=== PATIENT | female | born 1960 | race Caucasian/White ===

== ENCOUNTER 2016-12-02 17:49 | Emergency (ER) | payer OTHER ==
[~2016-12-02] VITALS: Ht 157.5 cm; Wt 86.2 kg
[~2016-12-02 17:49] MED LIST: /ONDA4TA PO; /PANT40TA OR; /PREG50CA PO; /WARF5TA PO; ACET65TA OR; AMIT10TA2 PO; AMOX250C3 PO; ASPI81CH PO; ASPIRIN PO; ATORVASTATIN PO; BACLOFEN PO; CLAR500T PO; COUMADIN PO; DICL0.1S7 TOP; DOCU100C PO; DUCOSATE SODIUM PO; EPIP0.3I IM; GABA300C2 PO; GABA600T PO; HYDR-3713 PO; LAMICTAL PO; LAMO150T PO; LEVA500T; LIPI10TA PO; LISI5TAB PO; LYRICA PO; METF500T PO; MORP15TA6 PO; NORCOBULK PO; No Historical Meds; OMEP40CA2 PO; OXYC-274 PO; PERC5TAB8 OR; PERCOCET PO; PRIL40CA PO; PROAAER IN; SERO50TA PO; SOMA350T PO; TRAM50TA2 PO; TRAMADOL PO; TRAZ50TA OR; TYLE325T5 PO; TYLENOL #3; VICO5TAB; VICO5TAB PO; WELLBUTRIN PO; [UNRECOGNIZED DRUG - OTHER] PO
[2016-12-02] MEDS ORDERED: SERO1TAB2 PO (18:00)
[2016-12-02] MEDS ORDERED: ZOFR20TA PO (18:00)
[2016-12-02] MEDS ORDERED: BENA25TA9 PO (18:00)
[2016-12-02] MEDS ORDERED: CLINDAMYCIN 150 MG CAP PO ONE (20:15)
[2016-12-02] MEDS ORDERED: ACETAMINOPH W/CODEINE #3 TAB UD PO ONE (20:15)
[2016-12-02] MEDS ORDERED: ADACEL/BOOSTRIX VACCINE (DIPHTH/PERTUSS/ACELL/TETANUS)0.5ML SYR (90715) IM ONE (20:15)
[2016-12-02] MEDS ORDERED: CLIN1CAP5 PO (21:36)
[2016-12-02] MEDS ORDERED: TYLETAB14 PO (21:36)
[2016-12-02 22:01] VITALS: BP 144/71
--- NOTE | 2016-12-03 07:46 | REP ---
Clinical: Trauma. Rule out fracture. Technique: AP, lateral, bilateral oblique views of the right foot. Findings: Scattered age-related degenerative changes are appreciated. No acute fracture or dislocation. No subcutaneous emphysema or radiodense foreign body. Impression: Age-related degenerative changes. No acute fracture or dislocation. Signed by Bismark Franklin MD 12/03/2016 07:38 A
== END 2016-12-02 22:09 | disposition home or self-care (01) ==
LOC: M ED 18:58
DX: S90.111A Contusion of right great toe without damage to nail, initial encounter (principal); W23.1XXA Caught, crushed, jammed, or pinched between stationary objects, initial encounter; Y92.099 Unspecified place in other non-institutional residence as the place of occurrence of the external cause; Y93.01 Activity, walking, marching and hiking; Y99.9 Unspecified external cause status

== ENCOUNTER → 2016-12-31 | Outpatient (CLI) | payer OTHER ==
[~2016-12-31] VITALS: Ht 158.8 cm; Wt 91.2 kg
[~2016-12-31] MED LIST changes: +AMIT10TA PO; +ASPI1TAB PO; +BENA25TA9 PO; +CARA1TAB2 PO; +CLIN1CAP5 PO; +CYCL5TA PO; +DULO30CA PO; +LIDOCAINE 2% INJ 100 MG/5 ML SDV (FOR ANES.) As Ordered ONE; +LISI-538 PO; +MIRT30TA2 PO; +NS 1,000 ML IV SCH; +PROPOFOL 200 MG/20 ML VIAL As Ordered ONE; +SERO1TAB2 PO; +SERO1TAB3 PO; +SING10TA32 PO; +TYLETAB14 PO; +ZOFR20TA PO
[2016-12-31 13:49] VITALS: BP 125/72
--- NOTE | 2016-12-31 13:53 | ROOR ---
Patient Name: Neyda Hernandez Procedure Date: 12/31/2016 1:27 PM Date of : 1960 Age: 56 Room: [facility] Gender: Female Note Status: Finalized Procedure: Upper GI endoscopy Indications: Heartburn, Hematemesis, Nausea with vomiting Providers: Oscar Hannon MD Referring MD: TIN ANTHONY NP Requesting Provider: Medicines: Monitored Anesthesia Care Complications: No immediate complications. Procedure: Pre-Anesthesia Assessment: - The heart rate, respiratory rate, oxygen saturations, blood pressure, adequacy of pulmonary ventilation, and response to care were monitored throughout the procedure. The Endoscope was introduced through the mouth, and advanced to the second part of duodenum. The upper GI endoscopy was accomplished without difficulty. The patient tolerated the procedure well. Findings: The Z-line was regular and was found 40 cm from the incisors. Mildly severe esophagitis with no bleeding was found 40 cm from the incisors. No other significant abnormalities were identified in a careful examination of the stomach. The exam of the duodenum was otherwise normal. Impression: - Z-line regular, 40 cm from the incisors. - Mildly severe reflux esophagitis. - No specimens collected. - The examination was otherwise normal. Recommendation: - Patient has a contact number available for emergencies. The signs and symptoms of potential delayed complications were discussed with the patient. Return to normal activities tomorrow. Written discharge instructions were provided to the patient. - High fiber diet. - Discharge patient to home. - Follow an antireflux regimen. - Continue present medications. - Use Prilosec (omeprazole) 40 mg PO daily. - The findings and recommendations were discussed with the patient's family. Oscar Hannon MD Oscar Hannon MD 12/31/2016 1:53:16 PM This report has been signed electronically. Number of Addenda: 0 Note Initiated On: 12/31/2016 1:27 PM Estimated Blood Loss: Estimated blood loss: none.
== END | disposition home or self-care (01) ==
LOC: M OPP 13:06
PROVIDERS: ATTEND Internal Medicine Gastroenterology
DX: R12 Heartburn (principal); K92.0 Hematemesis; R11.2 Nausea with vomiting, unspecified; K21.0 Gastro-esophageal reflux disease with esophagitis; I10 Essential (primary) hypertension; E11.9 Type 2 diabetes mellitus without complications; M19.90 Unspecified osteoarthritis, unspecified site; M79.7 Fibromyalgia; M54.2 Cervicalgia; M54.5 Low back pain; F41.9 Anxiety disorder, unspecified; F32.9 Major depressive disorder, single episode, unspecified; Z78.0 Asymptomatic menopausal state; G47.30 Sleep apnea, unspecified; R06.83 Snoring; F17.210 Nicotine dependence, cigarettes, uncomplicated; Z88.0 Allergy status to penicillin; Z88.8 Allergy status to other drugs, medicaments and biological substances; Z88.5 Allergy status to narcotic agent; Z79.82 Long term (current) use of aspirin; Z79.84 Long term (current) use of oral hypoglycemic drugs; Z79.899 Other long term (current) drug therapy; Z80.3 Family history of malignant neoplasm of breast

== ENCOUNTER 2017-02-27 13:58 | Emergency (ER) | payer OTHER ==
[~2017-02-27] VITALS: Ht 157.5 cm; Wt 93.0 kg
[~2017-02-27 13:58] MED LIST changes: -LIDOCAINE 2% INJ 100 MG/5 ML SDV (FOR ANES.) As Ordered ONE; -NS 1,000 ML IV SCH; -PROPOFOL 200 MG/20 ML VIAL As Ordered ONE
[2017-02-27] MEDS ORDERED: predniSONE 20 MG TAB PO ONE (15:45)
[2017-02-27] MEDS ORDERED: FAMOTIDINE 20 MG TAB PO ONE (15:45)
[2017-02-27] MEDS ORDERED: MEDR4PAK PO (15:50)
[2017-02-27] MEDS ORDERED: ALLE180T33 PO (15:50)
[2017-02-27] MEDS ORDERED: FAMO20TA PO (15:50)
[2017-02-27 16:01] VITALS: BP 161/94
== END 2017-02-27 16:02 | disposition home or self-care (01) ==
LOC: M ED 15:20
DX: L50.9 Urticaria, unspecified (principal); E11.9 Type 2 diabetes mellitus without complications; M79.7 Fibromyalgia; Z79.899 Other long term (current) drug therapy; Z88.0 Allergy status to penicillin; Z88.5 Allergy status to narcotic agent; Z88.1 Allergy status to other antibiotic agents; Z88.8 Allergy status to other drugs, medicaments and biological substances

== ENCOUNTER 2017-04-25 02:42 | Emergency (ER) | payer OTHER ==
[~2017-04-25] VITALS: Ht 157.5 cm; Wt 95.0 kg
[~2017-04-25 02:42] MED LIST changes: +ALLE180T33 PO; +BENA25TA10 PO; -BENA25TA9 PO; -CARA1TAB2 PO; +CARA1TAB6 PO; +CLIN150C14 PO; -CLIN1CAP5 PO; -CYCL5TA PO; +CYCL5TAB PO; +FAMO20TA PO; +MEDR4PAK PO; -METF500T PO; +METF500T13 PO
[2017-04-25 02:47] VITALS: BP 193/108
[2017-04-25] MEDS ORDERED: DOXYCYCLINE HYCLATE 100 MG TAB PO ONE (05:00)
[2017-04-25] MEDS ORDERED: NORCO, ANEXSIA 5/325MG TABLET (HYDROcodone/ACETAMINOPHEN) PO ONE (05:00)
[2017-04-25] MEDS ORDERED: DOXY100C37 PO (05:06)
[2017-07-22] MEDS ORDERED: MELO15TA4 (22:43)
== END 2017-04-25 05:25 | disposition home or self-care (01) ==
LOC: M ED 02:42
DX: S50.872A Other superficial bite of left forearm, initial encounter (principal); S80.812A Abrasion, left lower leg, initial encounter; W55.01XA Bitten by cat, initial encounter; W55.03XA Scratched by cat, initial encounter; Y92.89 Other specified places as the place of occurrence of the external cause; Y93.89 Activity, other specified; Y99.8 Other external cause status; I25.10 Atherosclerotic heart disease of native coronary artery without angina pectoris; E11.9 Type 2 diabetes mellitus without complications; I10 Essential (primary) hypertension; F33.9 Major depressive disorder, recurrent, unspecified; F17.210 Nicotine dependence, cigarettes, uncomplicated; Z79.84 Long term (current) use of oral hypoglycemic drugs; Z79.82 Long term (current) use of aspirin; Z79.899 Other long term (current) drug therapy

== ENCOUNTER → 2017-05-08 | Outpatient (CLI) | payer OTHER ==
[~2017-05-08] MED LIST changes: +DOXY100C37 PO; +MELO15TA4
[2017-05-08 14:48] LABS: ANION GAP 11 MEQ/L (8-16); BLOOD UREA NITROGEN 19 MG/DL (7-18); CALCIUM LEVEL 9.3 MG/DL (8.5-10.1); CARBON DIOXIDE LEVEL 26 MEQ/L (21-32); CHLORIDE LEVEL 106 MEQ/L (98-107); CREATININE FOR GFR 0.86 MG/DL (0.55-1.02); GLOMERULAR FILTRATION RATE > 60.0 (>51); GLUCOSE, FASTING 105 MG/DL (70-105); POTASSIUM SERUM 4.3 MEQ/L (3.5-5.1); SODIUM LEVEL 143 MEQ/L (136-145)
--- NOTE | 2017-05-08 14:54 | ECGEPIP ---
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
== END ==
LOC: M LAB 13:28
PROVIDERS: ATTEND Anesthesiology
DX: Z01.818 Encounter for other preprocedural examination (principal)

== ENCOUNTER 2017-05-09 07:25 | Day surgery (SDC) | payer OTHER ==
[~2017-05-09] VITALS: Ht 158.8 cm; Wt 93.4 kg
[~2017-05-09 07:25] MED LIST changes: -MELO15TA4
[2017-05-09] MEDS ORDERED: LR 1,000 ML IV ONE (07:45)
[2017-05-09] MEDS ORDERED: dexameTHASONE 4 MG/ML 1ML VIAL (J1100) IV ONE (07:45)
[2017-05-09] MEDS ORDERED: LIDOCAINE 1% MDV 20ML VIAL SC PRN (07:45)
[2017-05-09] MEDS ORDERED: LIDOCAINE 2% INJ 100 MG/5 ML SDV (FOR ANES.) As Ordered ONE (08:14)
[2017-05-09] MEDS ORDERED: PROPOFOL 200 MG/20 ML VIAL As Ordered ONE ×2 (08:14→09:57)
[2017-05-09] MEDS ORDERED: ONDANSETRON 4MG/2ML VIAL (J2405) As Ordered ONE (08:14)
[2017-05-09] MEDS ORDERED: ROCURONIUM BROMIDE 50 MG/5 ML VIAL/SYRINGE As Ordered ONE (08:14)
[2017-05-09] MEDS ORDERED: fentaNYL 100 MCG/2 ML INJECTION (J3010) As Ordered ONE (08:15)
[2017-05-09] MEDS ORDERED: MIDAZOLAM INJ 2 MG/2 ML VIAL (J2250) As Ordered ONE (08:15)
[2017-05-09] MEDS ORDERED: LIDOCAINE W/EPINEPHRINE 1% 20ML VIAL As Ordered ONE (08:32)
[2017-05-09] MEDS ORDERED: OXYMETAZOLINE NASAL SPRAY (AFRIN) As Ordered ONE (08:32)
[2017-05-09] MEDS ORDERED: PERCOCET 5MG/325MG TAB PO PRN (10:45)
[2017-05-09] MEDS ORDERED: LR 1,000 ML IV SCH ×2 (10:45)
[2017-05-09] MEDS ORDERED: ONDANSETRON 4MG/2ML VIAL (J2405) IV PRN (10:45)
[2017-05-09] MEDS ORDERED: fentaNYL 100 MCG/2 ML INJECTION (J3010) IV PRN (10:45)
[2017-05-09 12:25] VITALS: BP 162/93
--- NOTE | 2017-05-10 16:29 | RO ---
DATE OF PROCEDURE: 05/09/2017 PREPROCEDURE DIAGNOSIS: Left vocal cord polyp and dysphonia. POSTPROCEDURE DIAGNOSIS: Left vocal cord polyp and dysphonia. PROCEDURE: Direct suspension microlaryngoscopy with excision of the left vocal cord polyp. SURGEON: Dr. Chano Samaniego RADIOLOGIST CHIEF OF BREAST IMAGING: ANESTHESIA: General. CLINICAL PREAMBLE: This 56-year-old woman was found to have a left vocal polyp when she was undergoing upper gastrointestinal (GI) endoscopy procedure. She was also noted to have some voice disturbance. Flexible laryngoscopy revealed a polyp over the left anterior one-third of the vocal cord. Management options including surgery listed above have been discussed. The patient understood and consented to the procedure. DESCRIPTION OF PROCEDURE: The patient was identified in preop holding and brought to the operating room in stable condition. In supine position on the operating table, patient received general anesthesia followed by orotracheal intubation without incident. The patient was prepped and draped in the usual fashion for the procedure. Bimanual palpation of the oral cavity, oral tongue, base of tongue, lateral and posterior pharyngeal wall showed no evidence of discrete mass. The upper dentition was protected using a tooth guard and using the Dedo-Pilling laryngoscope, visual inspection of the mucosa of the oral cavity, oropharynx, supraglottis, piriform sinuses and posterior pharyngeal wall was carried out and found to be free of mass or ulceration lesions. The Dedo laryngoscope was then positioned to visualize the vocal cords. Large polypoid tissue was noted over the anterior one-third of the left vocal cord. The right vocal cord was unremarkable. Anterior commissure was clear. Subglottis was unremarkable. The mucosa overlying the left vocal cord polyp was then sharply incised using a sickle knife. The polyp was then successfully resected from the submucosal plane. Hemostasis was achieved using cottonoid pledgets soaked in Afrin solution. At the end of the procedure, sponge and instrument counts were correct. No complications noted. Estimated blood loss was less than 1 mL. General anesthesia was reversed, and the patient was extubated and brought to the recovery room in stable condition. SARIAH
[2017-07-22] MEDS ORDERED: MELO15TA4 (22:43)
== END 2017-05-09 12:35 | disposition home or self-care (01) ==
LOC: M SDC 07:25
PROVIDERS: ATTEND Otolaryngology
DX: J38.1 Polyp of vocal cord and larynx (principal); J38.3 Other diseases of vocal cords; K21.9 Gastro-esophageal reflux disease without esophagitis; I10 Essential (primary) hypertension; E11.9 Type 2 diabetes mellitus without complications; I25.10 Atherosclerotic heart disease of native coronary artery without angina pectoris; M79.7 Fibromyalgia; F41.9 Anxiety disorder, unspecified; F32.9 Major depressive disorder, single episode, unspecified; F17.210 Nicotine dependence, cigarettes, uncomplicated; Z79.82 Long term (current) use of aspirin; Z79.899 Other long term (current) drug therapy; Z88.0 Allergy status to penicillin

== ENCOUNTER 2018-05-16 08:12 | Emergency (ER) | payer OTHER ==
[2018-05-16] MEDS: METHOCARBAMOL 1,000 MG/10 ML VIAL (J2800) IV (08:58)
[2018-05-16] MEDS: KETOROLAC 30 MG/ML VIAL (J1885) IV (08:58)
== END 2018-05-16 10:22 | disposition home or self-care (01) ==
LOC: M ED 08:12
DX: M54.5 Low back pain (principal); G89.29 Other chronic pain; I10 Essential (primary) hypertension; K21.9 Gastro-esophageal reflux disease without esophagitis; M19.90 Unspecified osteoarthritis, unspecified site; F33.9 Major depressive disorder, recurrent, unspecified; E66.9 Obesity, unspecified; F17.200 Nicotine dependence, unspecified, uncomplicated; Z88.5 Allergy status to narcotic agent; Z88.0 Allergy status to penicillin; Z88.8 Allergy status to other drugs, medicaments and biological substances; Z79.84 Long term (current) use of oral hypoglycemic drugs; Z79.82 Long term (current) use of aspirin; Z79.899 Other long term (current) drug therapy
CPT/HCPCS: J1885

== ENCOUNTER → 2019-02-11 | Outpatient (CLI) | payer OTHER ==
[~2019-02-11] MED LIST changes: -/ONDA4TA PO; -/PANT40TA OR; -/PREG50CA PO; -/WARF5TA PO; -ASPI1TAB PO; +ASPI81TA26 PO; +COUM1TAB17 PO; -DULO30CA PO; +DULO30CA9 PO; -GABA600T PO; +GABA600T4 PO; +HYDR-3715 PO; +LYRI50CA PO; +MELO15TA28; +MIRT1TAB16 PO; -MIRT30TA2 PO; +ONDA-1 PO; +OXYC1TAB23 PO; -PERCOCET PO; +PROT1TAB2 OR; -ZOFR20TA PO; +ZOFR4TAB16 PO
[2019-02-11 11:22] LABS: BASO # 0.1 10^3/uL (0.0-0.2); BASO % 0.6 % (0.0-1.0); EOS # 0.1 10^3/uL (0.0-0.50); EOS % 0.9 % (0.0-3.0); HEMATOCRIT 47.6 % (36.0-47.0); HEMOGLOBIN 15.5 g/dl (12.0-15.5); LYMPH # 2.6 10^3/uL (1.5-4.5); LYMPH % 21.7 % (24.0-44.0); MEAN CORPUSCULAR HEMOGLOBIN 25.5 pg (27.0-33.0); MEAN CORPUSCULAR HGB CONC 32.6 g/dl (32.0-36.5); MEAN CORPUSCULAR VOLUME 78.3 fl (80.0-96.0); MONO # 0.9 10^3/uL (0.0-0.8); MONO % 7.5 % (0.0-5.0); NEUTROPHILS # 8.1 10^3/uL (1.8-7.7); NEUTROPHILS % 68.5 % (36.0-66.0); PLATELET COUNT, AUTOMATED 264 10^3/uL (150-450); RED BLOOD COUNT 6.08 10^6/uL (4.00-5.40); WHITE BLOOD COUNT 11.9 10^3/uL (4.0-10.0)
[2019-02-11 11:49] LABS: ALT/SGPT 95 U/L (12-78); BILIRUBIN,TOTAL 0.5 MG/DL (0.2-1.0); BLOOD UREA NITROGEN 9 MG/DL (7-18); CALCIUM LEVEL 9.7 MG/DL (8.5-10.1); CARBON DIOXIDE LEVEL 22 MEQ/L (21-32); CHLORIDE LEVEL 105 MEQ/L (98-107); CHOLESTEROL LEVEL 360 MG/DL (<200); CHOLESTEROL RISK RATIO 9.473 (<5); CREATININE FOR GFR 0.86 MG/DL (0.55-1.30); FREE T4 0.92 NG/DL (0.76-1.46); GLOMERULAR FILTRATION RATE > 60.0 (>51); GLUCOSE, FASTING 189 MG/DL (70-100); HDL CHOLESTEROL 38 MG/DL (>40); LDL CHOLESTEROL 258 MG/DL (<100); NON-HDL-C 322 MG/DL; SODIUM LEVEL 138 MEQ/L (136-145); TOTAL PROTEIN 7.4 GM/DL (6.4-8.2); TRIGLYCERIDES LEVEL 322 MG/DL (<150)
[2019-02-11 11:54] LABS: HEMOGLOBIN A1c 7.9 %
== END ==
LOC: M LAB 10:45
PROVIDERS: ATTEND Physician Assistant Medical
DX: R53.83 Other fatigue (principal); I10 Essential (primary) hypertension; E78.2 Mixed hyperlipidemia; E11.9 Type 2 diabetes mellitus without complications

== ENCOUNTER 2019-05-03 15:58 | Emergency (ER) | payer OTHER ==
[~2019-05-03] VITALS: Ht 157.5 cm; Wt 99.9 kg
[~2019-05-03 15:58] MED LIST changes: +OMEP40CA97 PO
[2019-05-03] MEDS ORDERED: NS 1,000 ML IV ONE (16:45)
[2019-05-03 17:10] LABS: BASO # 0.1 10^3/uL (0.0-0.2); BASO % 0.8 % (0.0-1.0); EOS # 0.1 10^3/uL (0.0-0.50); HEMATOCRIT 42.8 % (36.0-47.0); HEMOGLOBIN 14.4 g/dl (12.0-15.5); LYMPH # 2.2 10^3/uL (1.5-4.5); LYMPH % 21.1 % (24.0-44.0); MEAN CORPUSCULAR HEMOGLOBIN 26.6 pg (27.0-33.0); MEAN CORPUSCULAR HGB CONC 33.6 g/dl (32.0-36.5); MEAN CORPUSCULAR VOLUME 79.1 fl (80.0-96.0); MONO # 0.6 10^3/uL (0.0-0.8); MONO % 5.9 % (0.0-5.0); NEUTROPHILS # 7.3 10^3/uL (1.8-7.7); NEUTROPHILS % 69.6 % (36.0-66.0); PLATELET COUNT, AUTOMATED 243 10^3/uL (150-450); RED BLOOD COUNT 5.41 10^6/uL (4.00-5.40); WHITE BLOOD COUNT 10.4 10^3/uL (4.0-10.0)
[2019-05-03] MEDS ORDERED: HumuLIN R (REGULAR) INSULIN (NovoLIN R) **100U/ML** PER UNIT IV ONE (17:15)
[2019-05-03 17:35] LABS: ALBUMIN 3.7 GM/DL (3.2-5.2); BILIRUBIN,DIRECT 0.2 MG/DL (0.0-0.2); BILIRUBIN,TOTAL 0.5 MG/DL (0.2-1.0); CALCIUM LEVEL 9.3 MG/DL (8.5-10.1); CREATININE FOR GFR 1.34 MG/DL (0.55-1.30); GLOMERULAR FILTRATION RATE 43.6 (>51); HEMOGLOBIN A1c 12.2 %; POTASSIUM SERUM 4.3 MEQ/L (3.5-5.1); TOTAL PROTEIN 7.5 GM/DL (6.4-8.2)
[2019-05-03] MEDS ORDERED: ACETAMINOPHEN 325 MG TAB PO ONE (18:00)
[2019-05-03] MEDS ORDERED: BACT800T5 PO (18:42)
[2019-05-03] MEDS ORDERED: BACTRIM 160MG/800MG DS TAB PO ONE (19:00)
[2019-05-03 19:15] VITALS: BP 118/70
--- NOTE | 2019-05-03 19:33 | ECGEPIP ---
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
== END 2019-05-03 19:17 | disposition home or self-care (01) ==
LOC: M ED 15:58
DX: E11.65 Type 2 diabetes mellitus with hyperglycemia (principal); L73.9 Follicular disorder, unspecified; I10 Essential (primary) hypertension; J44.9 Chronic obstructive pulmonary disease, unspecified; K21.9 Gastro-esophageal reflux disease without esophagitis; M79.7 Fibromyalgia; J30.2 Other seasonal allergic rhinitis; Z79.899 Other long term (current) drug therapy; Z88.0 Allergy status to penicillin; Z88.1 Allergy status to other antibiotic agents; Z88.5 Allergy status to narcotic agent; F17.210 Nicotine dependence, cigarettes, uncomplicated

== ENCOUNTER 2019-05-05 11:02 | Emergency (ER) | payer OTHER ==
[~2019-05-05] VITALS: Ht 157.5 cm; Wt 100.8 kg
[~2019-05-05 11:02] MED LIST changes: +BACT800T5 PO; -OMEP40CA97 PO
[2019-05-05 12:08] LABS: BASO # 0.1 10^3/uL (0.0-0.2); BASO % 0.8 % (0.0-1.0); EOS # 0.1 10^3/uL (0.0-0.50); EOS % 0.9 % (0.0-3.0); HEMATOCRIT 42.8 % (36.0-47.0); HEMOGLOBIN 14.2 g/dl (12.0-15.5); LYMPH # 1.6 10^3/uL (1.5-4.5); LYMPH % 12.5 % (24.0-44.0); MEAN CORPUSCULAR HEMOGLOBIN 27.2 pg (27.0-33.0); MEAN CORPUSCULAR HGB CONC 33.2 g/dl (32.0-36.5); MONO # 0.9 10^3/uL (0.0-0.8); MONO % 6.9 % (0.0-5.0); NEUTROPHILS % 77.4 % (36.0-66.0); PLATELET COUNT, AUTOMATED 225 10^3/uL (150-450); RED BLOOD COUNT 5.22 10^6/uL (4.00-5.40); WHITE BLOOD COUNT 12.9 10^3/uL (4.0-10.0)
[2019-05-05] MEDS ORDERED: ALOG1TAB2 PO (12:27)
[2019-05-05] MEDS ORDERED: BACT800T5 PO (12:27)
[2019-05-05] MEDS ORDERED: LEVOTAB10 PO (12:27)
[2019-05-05 12:41] LABS: ALBUMIN 3.5 GM/DL (3.2-5.2); ALT/SGPT 59 U/L (12-78); BILIRUBIN,DIRECT 0.1 MG/DL (0.0-0.2); BILIRUBIN,TOTAL 0.4 MG/DL (0.2-1.0); BLOOD UREA NITROGEN 23 MG/DL (7-18); CALCIUM LEVEL 9.2 MG/DL (8.5-10.1); CARBON DIOXIDE LEVEL 21 MEQ/L (21-32); CHLORIDE LEVEL 99 MEQ/L (98-107); CREATININE FOR GFR 1.71 MG/DL (0.55-1.30); GLOMERULAR FILTRATION RATE 32.9 (>51); GLUCOSE, FASTING 524 MG/DL (70-100); LIPASE 197 U/L (73-393); POTASSIUM SERUM 4.1 MEQ/L (3.5-5.1); SODIUM LEVEL 130 MEQ/L (136-145); TOTAL PROTEIN 7.3 GM/DL (6.4-8.2)
[2019-05-05] MEDS ORDERED: NS 1,000 ML IV ONE ×2 (13:00→14:45)
[2019-05-05 13:24] LABS: HEMOGLOBIN A1c 12.6 %
--- NOTE | 2019-05-05 13:41 | REP ---
REASON: Near syncopal episode. COMPARISON: 11/30/2013 the latest prior. FINDINGS: The superior mediastinal structures are midline. The cardiac silhouette is unremarkable in size, shape, and position. The diaphragmatic surfaces of the lungs are regular, and the costophrenic angles are clear. The pulmonary ramos are clear. The imaged osseous structures are intact. IMPRESSION: There is no acute cardiopulmonary disease. No change from the prior exam. Electronically Signed by Deo Garcia DO 05/05/2019 03:33 P
[2019-05-05] MEDS ORDERED: ACETAMINOPHEN TAB 650MG DOSE (2X325MG) PO ONE (13:45)
[2019-05-05 13:49] LABS: CK-MB VALUE MASS < 1.0 NG/ML (<3.6); CPK CREATINE PHOSPHOKINASE 63 U/L (26-192); MB/CK RELATIVE INDEX 1.59 (< OR =4); TROPONIN I < 0.02 NG/ML (< 0.10)
--- NOTE | 2019-05-05 16:37 | REP ---
HISTORY: "Foggy feeling." Headache. COMPARISON: No priors for comparison. TECHNIQUE: 4.5 mm contiguous transaxial sections were obtained from the skull base to the cerebral convexities with thin cuts through the posterior fossa without the administration of intravenous contrast. FINDINGS: The ventricles and sulci are consistent with the patient's age. There are no extra-axial fluid collections. There is no mass effect. The deep cerebral white matter is consistent with the patient's age. The orbital and petrous structures , cerebellopontine angles, and posterior fossa are unremarkable. The sella turcica, cavernous, and paracavernous structures are essentially unremarkable. The visualized portions of the paranasal sinuses and mastoid air cells are clear. Images of the skull base show no gross abnormality. IMPRESSION: Essentially unremarkable CT examination of the brain. Electronically Signed by Deo Garcia DO 05/05/2019 04:37 P
[2019-05-05 16:45] VITALS: BP 139/78
--- NOTE | 2019-05-05 20:33 | ECGEPIP ---
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
== END 2019-05-05 17:33 | disposition home or self-care (01) ==
LOC: M ED 11:02
DX: E11.65 Type 2 diabetes mellitus with hyperglycemia (principal); I10 Essential (primary) hypertension; J44.9 Chronic obstructive pulmonary disease, unspecified; K21.9 Gastro-esophageal reflux disease without esophagitis; M54.9 Dorsalgia, unspecified; Z87.442 Personal history of urinary calculi; F17.210 Nicotine dependence, cigarettes, uncomplicated; Z88.0 Allergy status to penicillin; Z88.5 Allergy status to narcotic agent; Z88.8 Allergy status to other drugs, medicaments and biological substances; Z79.899 Other long term (current) drug therapy; Z79.84 Long term (current) use of oral hypoglycemic drugs; Z79.2 Long term (current) use of antibiotics

== ENCOUNTER 2019-05-26 21:41 | Emergency (ER) | payer OTHER ==
[~2019-05-26] VITALS: Ht 157.5 cm; Wt 99.5 kg
[~2019-05-26 21:41] MED LIST changes: +ALOG1TAB2 PO; +LEVOTAB10 PO
[2019-05-26] MEDS ORDERED: FAMOTIDINE 20 MG TAB PO ONE (22:30)
[2019-05-26] MEDS ORDERED: diphenhydrAMINE 50 MG CAP PO ONE (22:30)
[2019-05-26] MEDS ORDERED: predniSONE 20 MG TAB PO ONE (22:30)
[2019-05-26] MEDS ORDERED: PRED20TA PO (23:02)
[2019-05-26] MEDS ORDERED: DIPH25CA32 PO (23:02)
[2019-05-26] MEDS ORDERED: PEPC1TAB5 PO (23:02)
[2019-05-26 23:04] VITALS: BP 133/85
== END 2019-05-26 23:20 | disposition home or self-care (01) ==
LOC: M ED 21:41
DX: T78.40XA Allergy, unspecified, initial encounter (principal); L50.9 Urticaria, unspecified; E11.9 Type 2 diabetes mellitus without complications; I10 Essential (primary) hypertension; M54.9 Dorsalgia, unspecified; J44.9 Chronic obstructive pulmonary disease, unspecified; K21.9 Gastro-esophageal reflux disease without esophagitis; J30.2 Other seasonal allergic rhinitis; F41.0 Panic disorder [episodic paroxysmal anxiety]; Z87.442 Personal history of urinary calculi; F17.200 Nicotine dependence, unspecified, uncomplicated; Z79.899 Other long term (current) drug therapy; Z88.0 Allergy status to penicillin; Z88.1 Allergy status to other antibiotic agents; Z88.5 Allergy status to narcotic agent

== ENCOUNTER → 2019-07-31 | Outpatient (REF) | payer OTHER ==
[~2019-07-31] MED LIST changes: +DIPH25CA32 PO; +OMEP40CA97 PO; +PEPC1TAB5 PO; +PRED20TA PO
[2019-07-31 19:56] LABS: BASO # 0.1 10^3/uL (0.0-0.2); BASO % 0.7 % (0.0-1.0); EOS # 0.2 10^3/uL (0.0-0.5); EOS % 1.8 % (0.0-3.0); HEMATOCRIT 44.5 % (36.0-47.0); HEMOGLOBIN 14.1 g/dl (12.0-15.5); LYMPH # 2.5 10^3/uL (1.5-5.0); LYMPH % 25.7 % (24.0-44.0); MEAN CORPUSCULAR HEMOGLOBIN 26.8 pg (27.0-33.0); MEAN CORPUSCULAR HGB CONC 31.7 g/dl (32.0-36.5); MEAN CORPUSCULAR VOLUME 84.6 fl (80.0-96.0); MONO # 0.9 10^3/uL (0.0-0.8); MONO % 9.4 % (0.0-5.0); NEUTROPHILS % 61.7 % (36.0-66.0); PLATELET COUNT, AUTOMATED 244 10^3/uL (150-450); RED BLOOD COUNT 5.26 10^6/uL (4.00-5.40); WHITE BLOOD COUNT 9.7 10^3/uL (4.0-10.0)
[2019-07-31 20:14] LABS: HEMOGLOBIN A1c 8.4 %
[2019-07-31 20:26] LABS: ALBUMIN 3.8 GM/DL (3.2-5.2); ALT/SGPT 53 U/L (12-78); BILIRUBIN,TOTAL 0.4 MG/DL (0.2-1.0); BLOOD UREA NITROGEN 14 MG/DL (7-18); CALCIUM LEVEL 9.5 MG/DL (8.5-10.1); CARBON DIOXIDE LEVEL 23 MEQ/L (21-32); CHLORIDE LEVEL 105 MEQ/L (98-107); CHOLESTEROL LEVEL 329 MG/DL (<200); CHOLESTEROL RISK RATIO 7.477 (<5); CREATININE FOR GFR 1.14 MG/DL (0.55-1.30); GLOMERULAR FILTRATION RATE 52.5 (>51); GLUCOSE, FASTING 127 MG/DL (70-100); HDL CHOLESTEROL 44 MG/DL (>40); LDL CHOLESTEROL 206 MG/DL (<100); MAGNESIUM LEVEL 1.9 MG/DL (1.8-2.4); NON-HDL-C 285 MG/DL; POTASSIUM SERUM 4.6 MEQ/L (3.5-5.1); RHEUMATOID FACTOR QUANT < 10.0 IU/ML (<15.0); SODIUM LEVEL 137 MEQ/L (136-145); TOTAL PROTEIN 7.8 GM/DL (6.4-8.2); TRIGLYCERIDES LEVEL 395 MG/DL (<150); URIC ACID 3.8 MG/DL (2.6-6.0)
[2019-07-31 20:28] LABS: TOTAL 25(OH) VITAMIN D 8.4 NG/ML (30.0-100.0)
[2019-07-31 20:29] LABS: VITAMIN B12 LEVEL 254 PG/ML (247-911)
[2019-08-04 14:07] LABS: ANTI DS-DNA AB Negative (Negative); ANTINUCLEAR ANTIBODIES DIRECT Negative (Negative); COMPLEMENT TOTAL (CH50) > 60 U/mL (42-999999)
== END ==
LOC: M LAB REF 19:06
PROVIDERS: ATTEND Nurse Practitioner Family
DX: E11.9 Type 2 diabetes mellitus without complications (principal); Z00.01 Encounter for general adult medical examination with abnormal findings; M25.50 Pain in unspecified joint; Z12.39 Encounter for other screening for malignant neoplasm of breast

== ENCOUNTER → 2019-08-03 | Outpatient (CLI) | payer OTHER ==
--- NOTE | 2019-08-04 08:53 | REPMRS ---
Patient History The patient states she has not had a clinical breast exam in over a year. Patient is postmenopausal. Family history of breast cancer in mother. 3D TOMOSYNTHESIS WAS PERFORMED. The [facility] lifetime risk for breast cancer is 15.8%. Digital Mammo Screening Bilat: August 03, 2019 - Exam #: [id number] Bilateral CC and MLO view(s) were taken. Technologist: Salma Wiseman, Technologist FINDINGS: There are scattered fibroglandular densities. There is no evidence of cancer on this mammogram. Assessment: BI-RADS/ACR category 2 mammogram. Benign Findings. Recommendation Routine screening mammogram of both breasts in 1 year (for women over age 40). This mammogram was interpreted with the aid of an FDA-approved computer-aided dectection system. Electronically Signed By: Toi Robb MD 08/04/19 0853
== END ==
LOC: M RAD 17:35
PROVIDERS: ATTEND Nurse Practitioner Family
DX: Z12.39 Encounter for other screening for malignant neoplasm of breast (principal)

== ENCOUNTER → 2019-11-09 | Outpatient (REF) | payer OTHER ==
[2019-11-09 17:18] LABS: BASO # 0.1 10^3/uL (0.0-0.2); BASO % 0.7 % (0.0-1.0); EOS # 0.2 10^3/uL (0.0-0.5); EOS % 1.8 % (0.0-3.0); HEMATOCRIT 43.9 % (36.0-47.0); HEMOGLOBIN 13.9 g/dl (12.0-15.5); LYMPH # 2.4 10^3/uL (1.5-5.0); LYMPH % 26.7 % (24.0-44.0); MEAN CORPUSCULAR HEMOGLOBIN 25.1 pg (27.0-33.0); MEAN CORPUSCULAR HGB CONC 31.7 g/dl (32.0-36.5); MEAN CORPUSCULAR VOLUME 79.2 fl (80.0-96.0); MONO # 0.7 10^3/uL (0.0-0.8); MONO % 8.2 % (0.0-5.0); NEUTROPHILS # 5.5 10^3/uL (1.5-8.5); NEUTROPHILS % 61.9 % (36.0-66.0); PLATELET COUNT, AUTOMATED 216 10^3/uL (150-450); RED BLOOD COUNT 5.54 10^6/uL (4.00-5.40); WHITE BLOOD COUNT 8.9 10^3/uL (4.0-10.0)
[2019-11-09 17:22] LABS: ALBUMIN 3.5 GM/DL (3.2-5.2); BILIRUBIN,TOTAL 0.4 MG/DL (0.2-1.0); CALCIUM LEVEL 9.1 MG/DL (8.5-10.1); CREATININE FOR GFR 1.02 MG/DL (0.55-1.30); GLOMERULAR FILTRATION RATE 59.7 (>51)
[2019-11-09 18:13] LABS: HEMOGLOBIN A1c 8.9 %
[2019-11-10 10:04] LABS: TOTAL 25(OH) VITAMIN D 22.3 NG/ML (30.0-100.0)
== END ==
LOC: M LAB REF 16:29
PROVIDERS: ATTEND Physician Assistant
DX: H25.13 Age-related nuclear cataract, bilateral (principal); E11.65 Type 2 diabetes mellitus with hyperglycemia; F31.89 Other bipolar disorder; J30.9 Allergic rhinitis, unspecified; R05 Cough; E55.9 Vitamin D deficiency, unspecified

== ENCOUNTER → 2019-11-16 | Outpatient (CLI) | payer OTHER ==
--- NOTE | 2019-11-16 10:18 | REP ---
CHEST TWO VIEWS: COMPARISON: 05/05/2019. There is no evidence of acute infiltrate. No pleural effusion is seen. The heart is normal in size. The mediastinal silhouette is unremarkable. The visualized osseous structures are intact. There is mild tortuosity of the thoracic aorta. There are mild degenerative changes of the spine. IMPRESSION: No acute pulmonary disease. Electronically Signed by Toi Robb MD 11/16/2019 01:24 P
== END ==
LOC: M RAD 09:28
PROVIDERS: ATTEND Physician Assistant
DX: Z01.818 Encounter for other preprocedural examination (principal); R05 Cough; J44.9 Chronic obstructive pulmonary disease, unspecified

== ENCOUNTER → 2020-02-05 | Outpatient (REF) | payer OTHER, MEDICAID ==
[2020-02-05 13:26] LABS: BASO # 0.1 10^3/uL (0.0-0.2); BASO % 0.7 % (0.0-1.0); EOS # 0.1 10^3/uL (0.0-0.5); EOS % 1.1 % (0.0-3.0); HEMATOCRIT 45.3 % (36.0-47.0); HEMOGLOBIN 14.7 g/dl (12.0-15.5); LYMPH # 2.7 10^3/uL (1.5-5.0); MEAN CORPUSCULAR HEMOGLOBIN 26.4 pg (27.0-33.0); MEAN CORPUSCULAR HGB CONC 32.5 g/dl (32.0-36.5); MEAN CORPUSCULAR VOLUME 81.5 fl (80.0-96.0); MONO # 0.7 10^3/uL (0.0-0.8); MONO % 7.4 % (0.0-5.0); NEUTROPHILS # 6.2 10^3/uL (1.5-8.5); NEUTROPHILS % 62.5 % (36.0-66.0); PLATELET COUNT, AUTOMATED 243 10^3/uL (150-450); RED BLOOD COUNT 5.56 10^6/uL (4.00-5.40); WHITE BLOOD COUNT 9.9 10^3/uL (4.0-10.0)
[2020-02-05 14:27] LABS: ALBUMIN 3.2 GM/DL (3.2-5.2); ALT/SGPT 27 U/L (12-78); BILIRUBIN,TOTAL 0.4 MG/DL (0.2-1.0); BLOOD UREA NITROGEN 14 MG/DL (7-18); CALCIUM LEVEL 8.7 MG/DL (8.5-10.1); CARBON DIOXIDE LEVEL 23 MEQ/L (21-32); CHLORIDE LEVEL 102 MEQ/L (98-107); CHOLESTEROL LEVEL 284 MG/DL (<200); CHOLESTEROL RISK RATIO 8.606 (<5); CREATININE FOR GFR 0.96 MG/DL (0.55-1.30); FREE T4 1.36 NG/DL (0.76-1.46); GLOMERULAR FILTRATION RATE > 60.0 (>51); GLUCOSE, FASTING 414 MG/DL (70-100); HDL CHOLESTEROL 33 MG/DL (>40); NON-HDL-C 251 MG/DL; POTASSIUM SERUM 3.9 MEQ/L (3.5-5.1); SODIUM LEVEL 134 MEQ/L (136-145); TOTAL 25(OH) VITAMIN D 14.9 NG/ML (30.0-100.0); TOTAL PROTEIN 6.8 GM/DL (6.4-8.2); TRIGLYCERIDES LEVEL 629 MG/DL (<150)
[2020-02-05 15:27] LABS: HEMOGLOBIN A1c 12.5 %
== END ==
LOC: M LAB REF 11:59
PROVIDERS: ATTEND Physician Assistant
DX: F17.210 Nicotine dependence, cigarettes, uncomplicated (principal); E11.65 Type 2 diabetes mellitus with hyperglycemia; F31.89 Other bipolar disorder; I10 Essential (primary) hypertension; E55.9 Vitamin D deficiency, unspecified; E78.5 Hyperlipidemia, unspecified

== ENCOUNTER 2021-01-05 06:35 | Emergency (ER) | payer OTHER, MEDICAID ==
[~2021-01-05] VITALS: Ht 157.5 cm; Wt 94.5 kg
[~2021-01-05 06:35] MED LIST changes: -AMIT10TA PO; +AMIT10TA7 PO; -CLIN150C14 PO; +CLIN150C15 PO; -LISI-538 PO; +LISI20TA33 PO
[2021-01-05] MEDS ORDERED: MORPHINE 4 MG/ML 1ML VIAL/SYRINGE (J2270) IV ONE ×2 (07:05→09:40)
--- NOTE | 2021-01-05 08:21 | REP ---
INDICATION: fall COMPARISON: None. TECHNIQUE: AP, lateral, bilateral oblique views. FINDINGS: Small bony densities identified at the medial and lateral malleoli are likely chronic although small lateral malleolus avulsion fracture cannot be excluded. The ankle mortise is intact. Mild soft tissue swelling noted. Lateral demonstrates calcaneal heel spur. IMPRESSION: Presumed age-related degenerative changes. Very small acute versus chronic avulsion fracture of the distal fibula cannot definitively be excluded. <Electronically signed by Bismark Franklin > 01/05/21 0882
--- NOTE | 2021-01-05 08:22 | REP ---
INDICATION: fall COMPARISON: None. TECHNIQUE: AP, lateral, bilateral oblique, and coned-down views of the lumbar spine. FINDINGS: Alignment and lordosis maintained. Vertebral bodies appear intact and there is no evidence for acute fracture/compression injury or subluxation. Scattered moderate to advanced multilevel degenerative changes include endplate sclerosis, osteophytosis, disc space narrowing and facet hypertrophy. IMPRESSION: 1. No evidence for acute fracture/compression injury or subluxation. 2. Moderate/advanced multilevel degenerative changes. <Electronically signed by Bismark Franklin > 01/05/21 0811
--- NOTE | 2021-01-05 08:24 | REP ---
INDICATION: fall COMPARISON: None. TECHNIQUE: AP and frog-lateral views of the right femur. FINDINGS: Visualized portions of the femur demonstrate no obvious acute fracture or dislocation. Evidence for prior knee replacement noted. A subtle nondisplaced oblique fracture through the proximal fibular diaphysis is suspected. IMPRESSION: 1. No femur fracture. 2. Suspected oblique nondisplaced fracture through the proximal fibula. <Electronically signed by Bismark Franklin > 01/05/21 0805
--- NOTE | 2021-01-05 08:24 | REP ---
INDICATION: fall COMPARISON: None. TECHNIQUE: AP and lateral views of the right tibia/fibula FINDINGS: Evidence for prior knee replacement. There is no oblique fracture through the proximal fibular shaft which is of indeterminate age and may represent acute fracture. Correlation with physical examination is required. Presumed degenerative changes at the ankle. IMPRESSION: Oblique nondisplaced fracture through the proximal fibular diaphysis is suspicious for acute fracture and requires clinical correlation. <Electronically signed by Bismark Franklin > 01/05/21 [id number]
--- NOTE | 2021-01-05 08:25 | REP ---
INDICATION: R hip pain Nontraumatic hip pain. COMPARISON: None. TECHNIQUE: Frontal view of the pelvis with neutral and frog lateral views of the right hip. FINDINGS: Age-related degenerative changes are appreciated. There is no evidence for acute fracture or dislocation. Surrounding soft tissues are grossly unremarkable. IMPRESSION: Age-appropriate pelvis and right hip series. No acute fracture or dislocation. <Electronically signed by Bismark Franklin > 01/05/21 0809
--- NOTE | 2021-01-05 08:26 | REP ---
INDICATION: fall COMPARISON: None. TECHNIQUE: AP, lateral, bilateral oblique views right foot. FINDINGS: Degenerative changes primarily involving the 1st toe and specifically the 1st metatarsophalangeal joint noted. Lateral view demonstrates calcaneal heel spur. No obvious acute fracture or dislocation appreciated. IMPRESSION: Degenerative changes. No acute fracture or dislocation. <Electronically signed by Bismark Franklin > 01/05/21 [id number]
[2021-01-05] MEDS ORDERED: HYDR-3713 PO (09:44)
[2021-01-05 09:48] VITALS: BP 163/93
[2021-01-10] MEDS ORDERED: ELIQ5TAB PO (08:18)
== END 2021-01-05 10:10 | disposition home or self-care (01) ==
LOC: M ED 06:35
DX: S30.0XXA Contusion of lower back and pelvis, initial encounter (principal); S82.401A Unspecified fracture of shaft of right fibula, initial encounter for closed fracture; S82.301A Unspecified fracture of lower end of right tibia, initial encounter for closed fracture; M51.37 Other intervertebral disc degeneration, lumbosacral region; W10.9XXA Fall (on) (from) unspecified stairs and steps, initial encounter; Y92.9 Unspecified place or not applicable; Y93.9 Activity, unspecified; Y99.9 Unspecified external cause status; E11.9 Type 2 diabetes mellitus without complications; I10 Essential (primary) hypertension; J44.9 Chronic obstructive pulmonary disease, unspecified; K21.9 Gastro-esophageal reflux disease without esophagitis; F41.9 Anxiety disorder, unspecified; F32.9 Major depressive disorder, single episode, unspecified; Z87.442 Personal history of urinary calculi; F17.200 Nicotine dependence, unspecified, uncomplicated; F12.10 Cannabis abuse, uncomplicated; M77.31 Calcaneal spur, right foot; Z79.899 Other long term (current) drug therapy; Z88.0 Allergy status to penicillin; Z88.1 Allergy status to other antibiotic agents; Z88.5 Allergy status to narcotic agent
CPT/HCPCS: 29515; 72110; 73502; 73552; 73590; 73610; 73630; 96374; 96376; 99284; J2270

== ENCOUNTER 2021-01-09 06:09 | Observation (INO) | payer MEDICAID, OTHER ==
[~2021-01-09] VITALS: Ht 157.5 cm; Wt 95.7 kg
[2021-01-09] MEDS ORDERED: ACETAMINOPHEN 325 MG TAB PO ONE (06:20)
[2021-01-09] MEDS ORDERED: methylPREDNISolone 125MG 2ML VIAL IV ONE (06:20)
[2021-01-09] MEDS ORDERED: DOXYCYCLINE HYCLATE 100 MG in D5W MINI-BAG PLUS 100 ML IV ONE (06:30)
[2021-01-09] MEDS ORDERED: fentaNYL 100 MCG/2 ML INJECTION (J3010) IV ONE (06:30)
[2021-01-09 06:43] LABS: BASO # 0.1 10^3/uL (0.0-0.2); BASO % 0.5 % (0.0-1.0); EOS % 0.2 % (0.0-3.0); HEMATOCRIT 40.7 % (36.0-47.0); HEMOGLOBIN 12.9 g/dl (12.0-15.5); LYMPH # 1.8 10^3/uL (1.5-5.0); LYMPH % 13.6 % (24.0-44.0); MEAN CORPUSCULAR HEMOGLOBIN 25.8 pg (27.0-33.0); MEAN CORPUSCULAR HGB CONC 31.7 g/dl (32.0-36.5); MEAN CORPUSCULAR VOLUME 81.4 fl (80.0-96.0); MONO # 0.9 10^3/uL (0.0-0.8); MONO % 6.9 % (2.0-8.0); NEUTROPHILS # 10.6 10^3/uL (1.5-8.5); NEUTROPHILS % 78.2 % (36.0-66.0); PLATELET COUNT, AUTOMATED 420 10^3/uL (150-450); WHITE BLOOD COUNT 13.6 10^3/uL (4.0-10.0)
[2021-01-09] MEDS ORDERED: ASPIRIN 325 MG TAB PO ONE (06:50)
[2021-01-09 06:59] LABS: INR 0.99; PROTHROMBIN TIME 13.2 SECONDS (12.5-14.3)
[2021-01-09 07:02] LABS: D-DIMER QUANT 1527.36 ng/ml (<500)
[2021-01-09 07:12] LABS: ALT/SGPT 12 U/L (12-78); BILIRUBIN,DIRECT < 0.1 MG/DL (0.0-0.2); BILIRUBIN,TOTAL 0.3 MG/DL (0.2-1.0); BLOOD UREA NITROGEN 11 MG/DL (7-18); CALCIUM LEVEL 9.1 MG/DL (8.5-10.1); CARBON DIOXIDE LEVEL 25 MEQ/L (21-32); CHLORIDE LEVEL 101 MEQ/L (98-107); CK-MB VALUE MASS < 1.0 NG/ML (<3.6); CPK CREATINE PHOSPHOKINASE 40 U/L (26-192); CREATININE FOR GFR 0.91 MG/DL (0.55-1.30); GLOMERULAR FILTRATION RATE > 60.0 (>51); GLUCOSE, FASTING 340 MG/DL (70-100); NT-PRO BNP 119 PG/ML (<125); POTASSIUM SERUM 4.1 MEQ/L (3.5-5.1); SODIUM LEVEL 135 MEQ/L (136-145); TOTAL PROTEIN 7.6 GM/DL (6.4-8.2); TROPONIN I < 0.02 NG/ML (< 0.10)
[2021-01-09 07:17] LABS: RSV AMPLIFICATION NEGATIVE (NEGATIVE)
[2021-01-09] MEDS ORDERED: NS 1,000 ML IV ONE ×2 (07:25→08:50)
[2021-01-09] MEDS ORDERED: ISOVUE-370 76% 100ML VIAL As Ordered ONE (07:26)
--- NOTE | 2021-01-09 08:00 | REP ---
INDICATION: DYSPNEA/COUGH. COMPARISON: Comparison chest x-ray November 16, 2019. TECHNIQUE: Portable upright AP chest radiograph. FINDINGS: Heart size is borderline. Pulmonary vascular and interstitial markings are somewhat prominent. Pleural angles are sharp. There is subsegmental discoid atelectasis in the left base. EKG monitoring electrodes are seen. No acute bony abnormality is seen.. IMPRESSION: Borderline heart size. Prominent vascular and interstitial markings. Discoid atelectasis left base.. <Electronically signed by Sean Mckeon > 01/09/21 0752
[2021-01-09] MEDS ORDERED: DIPH25CA32 PO (08:17)
[2021-01-09] MEDS ORDERED: LORA-674 PO (08:17)
[2021-01-09] MEDS ORDERED: METF-839 PO (08:17)
--- NOTE | 2021-01-09 08:43 | REPVR ---
PROCEDURE INFORMATION: Exam: CTA Chest With Contrast Exam date and time: 01/09/2021 6:24 AM Age: 60 years old Clinical indication: Chest pain; Additional info: Left sided chest pain /airspace disease TECHNIQUE: Imaging protocol: Computed tomographic angiography of the chest with contrast. 3D rendering (Not supervised by radiologist): MIP and/or 3D reconstructed images were created by the technologist. Radiation optimization: All CT scans at this facility use at least one of these dose optimization techniques: automated exposure control; mA and/or kV adjustment per patient size (includes targeted exams where dose is matched to clinical indication); or iterative reconstruction. Contrast material: ISOVUE 370; Contrast volume: 75 ml; Contrast route: INTRAVENOUS (IV); COMPARISON: CR PORTABLE CHEST X-RAY 01/09/2021 7:18 AM FINDINGS: Pulmonary arteries: Limited study for evaluation of the pulmonary embolism secondary to motion artifact. Small central filling defect in the left upper lobe pulmonary artery branch (series 401, image 71). Aorta: Unremarkable. No aortic aneurysm. No aortic dissection. Lungs: Pleural based density in the left lung base measuring 19 x 34 x 40 mm. Small focal density in the anterolateral lower lobe. 5.3 mm nodule in the left lower lobe (series 402, image 46). Mild diffuse ground-glass airspace opacities likely representing edema. Pleural spaces: No pleural effusion. Heart: Unremarkable. No cardiomegaly. No pericardial effusion. Lymph nodes: Few subcentimeter mediastinal lymph nodes. No enlarged lymph nodes. Bones/joints: Degenerative changes. No acute fracture. Soft tissues: Unremarkable. IMPRESSION: Limited study for evaluation of the pulmonary embolism secondary to motion artifact. Small central filling defect in the left upper lobe pulmonary artery branch (series 401, image 71). Left lower lobe subsegmental branches are difficult to evaluate secondary to motion artifact. Pleural based density in the left lung base measuring 19 x 34 x 40 mm. Small focal density in the anterolateral lower lobe. Differential diagnosis would include pneumonia, however, pulmonary infarction secondary to small left lower lobe pulmonary embolism cannot be completely excluded given limitation of the motion artifact. There is 5.3 mm nodule in the left lower lobe (series 402, image 46). Given densities and lung nodule, neoplastic process cannot be completely excluded, clinical correlation and further workup with PET scan is recommended. Mild diffuse ground-glass airspace opacities likely representing edema. Critical findings: Dr. Robb was notified on 01/09/2021 at 7:43 a.m.. Electronically signed by: Ivet Jacobo On 01/09/2021 08:43:36 AM
[2021-01-09] MEDS ORDERED: HEPARIN DRIP 25,000 UNITS in IV 1 EA IV SCH ×2 (08:45→15:20)
[2021-01-09] MEDS ORDERED: HEPARIN SOD (PORCINE) 5000UNITS/ML 1ML VIAL/SYRINGE IV ONE (08:45)
[2021-01-09] MEDS ORDERED: NS 850 ML IV ONE (08:50)
[2021-01-09] MEDS ORDERED: DOCUSATE SODIUM 100MG CAPSULE PO SCH (09:00)
[2021-01-09] MEDS ORDERED: MOM 30ML SUSPENSION UDC PO PRN (11:55)
[2021-01-09] MEDS ORDERED: MAALOX 30 ML SUSP *UDC PO PRN (11:55)
[2021-01-09] MEDS ORDERED: ACETAMINOPHEN TAB 650MG DOSE (2X325MG) PO PRN (11:55)
[2021-01-09] MEDS ORDERED: GABAPENTIN 300 MG CAP PO PRN (12:05)
[2021-01-09] MEDS ORDERED: diphenhydrAMINE 25MG CAP PO PRN (12:05)
[2021-01-09] MEDS ORDERED: NYSTATIN 100,000 UNITS/GM TOPICAL PWD 15 GM TOP PRN ×2 (12:05→15:14)
[2021-01-09 12:43] LABS: HEMOGLOBIN A1c 12.4 %
[2021-01-09] MEDS ORDERED: DEXTROSE 50% 50 ML SYRINGE IV PRN (14:45)
[2021-01-09] MEDS ORDERED: GLUCOSE 4GM CHEW TABLET PO PRN (14:45)
[2021-01-09] MEDS ORDERED: GLUCAGON INJ 1MG VIAL SC PRN (14:45)
[2021-01-09 15:15] VITALS: BP 142/80
[2021-01-09] MEDS ORDERED: HEPARIN SOD (PORCINE) 5000UNITS/ML 1ML VIAL/SYRINGE IV PRN (15:20)
--- NOTE | 2021-01-09 16:08 | ECGEPIP ---
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
--- NOTE | 2021-01-09 16:37 | HPEPDOC ---
[facility] Medical History & Physical Date of Admission Jan 09, 2021 Date of Service: Jan 09, 2021 Attending Physician: RISHI TREADWELL MD History and Physical CHIEF COMPLAINT: L flank pain HISTORY OF PRESENT ILLNESS: Patient is a 60 y/o F with PMHx of DM2, HTN, COPD (no home O2), asthma, fibromyalgia and GERD, presenting to the ED c/o L flank pain. Per patient, with no symptoms prior, she woke up at midnight this morning with an acute onset of L flank pain. She described pain as sharp and rated it 1 0/10, with radiation to L arm, chest and back. She reported associated palpitation, chills, SOB, N/V x3 (without blood), and noted her pain worsens when supine and improves upon sitting up. She denied diarrhea, leg swelling and urinary symptoms, but noted fever (101.1F at arrival in ED), cough with small amount of greenish sputum, headache and recent weightloss of 30lbs over past 2 months in which she attributed to decreased oral intake. She tried to manage her SOB by using her rescue inhaler (1 dose), but it was ineffective. She denied previous experience with similar symptoms, hx of clotting disease, current use of contraceptives and recent traveling history. However, patient reported recent ED admission s/p fall on 01/05. She had a mechanical fall, tripping down the stairs and was found with "oblique nondisplaced fracture through the proximal fibular diaphysis" on XR. She was subsequently discharged with RLE splint, hydrocondone/acetaminophen, and instructed to f/u with orthopedic surgery (Dr. Lofton) and PCP. She noted that she has had reduced ambulatory activity since discharge. Patient reported her pain remains at 8/10 after treatment in the ED. Of note, patient reported recently dx with yeast infection by PCP 3 wks ago with red rash under B/L breast and groin area. She took an antibiotic and was started on a cream in which she was unable to recall name. She reported her rash has mostly resolved. In the ED, patient was found with elevated D-dimer (1521.36) and elevated lactic acid (2.7). CXR was remarkable for "Prominent vascular and interstitial markings. Discoid atelectasis left base". CTA chest showed "small central filling defect in the left upper lobe pulmonary artery branch (series 401, image 71). Pleural based density in the left lung base measuring 19 x 34 x 40 mm. Small focal density in the anterolateral lower lobe with differential diagnosis including pneumonia, however, pulmonary infarction secondary to small left lower lobe pulmonary embolism cannot be completely excluded given limitation of the motion artifact. There is 5.3 mm nodule in the left lower lobe (series 402, image 46). Given densities and lung nodule, neoplastic process cannot be completely excluded, clinical correlation and further workup with PET scan is recommended. Mild diffuse ground-glass airspace opacities likely representing edema." She received 1 dose of doxycycline and was started on heparin gtt in the ED. PAST MEDICAL HISTORY: 1. DM2 2. HTN 3. COPD (no home O2) 4. Asthma 5. Fibromyalgia 6. GERD PAST SURGICAL HISTORY: 1. Cholecystectomy 2. Appendectomy 3. B/L knee replacement 4. R Rotator cuff repair in 2012 5. 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 REVIEW OF SYSTEMS: CONSTITUTIONAL: Denies weakness, fatigue, but noted chills, fever (101.1F at arrival in ED), weight-loss of 30lb over past 2 months 2/2 decreased oral intake. HEENT: Denies dizziness, vision changes, hearing changes or throat pain but noted HUGHES. CARDIOVASCULAR: Denies edema, noted CP, palpitation and dyspnea on exertion. RESPIRATORY: Denies wheezing or hemoptysis, but ntoed cough (with small volume of green sputum) and dyspnea. GASTROINTESTINAL: Denies abdominal pain, diarrhea, constipation, melena, hematochezia, but noted nausea, vomiting x3. GENITAOURINARY: Denies dysuria, hematuria, urinary frequency, incontinence or retention. SKIN: Denies skin changes, lesions, jaundice, bruising, noted skin rash in groin area. MUSCULOSKELETAL: Denies weakness, muscle or joint pain. NEUROLOGICAL: Denies focal weakness, numbness, tingling, change in Speech HEMATOLOGICAL: Denies bruising, excessive bleeding, petechiae HOME MEDICATIONS: Please see below. PHYSICAL EXAMINATION: VITAL SIGNS: See below GENERAL APPEARANCE: Revealed 60 y/o F laying on ED cot in semifowler position, alert & oriented x3, in mild distress due to pain. HEENT Exam: Normocephalic and atraumatic, PERRLA, conjunctiva & lids normal, EOMI, anicteric sclera, mucous membr. moist/pink, pharynx normal, nares patent. O2 noted via NC at 2L/min NECK: Supple without lymphadenopathy, JVD, thyromegaly LUNGS: Bibasilar fine crackles noted, otherwise clear to auscultation bilatera lly with full breath sounds without rales, wheezing, and crackles. CARDIOVASCULAR: Regular rate and rhythm, normal S1 & S2 without gallops, murmurs, rubs ABDOMEN: Soft, non-distended with normal bowel sounds. LUQ mildly tender to palpation. No masses or ecchymosis or hepatosplenomegaly. EXTREMITIES: 2+ pulses in all extremities except RLE unable to examine due to splint. No clubbing, cyanosis, edema, tenderness. RLE splinted and wrapped in PARVEZ bandages with normal capillary refill, motor and sensory function. SKIN: Normal turgor and temperature. Rash noted in L groin area with smaller erythema noted under B/L breasts. MUSCULOSKELETAL: Moving all 4 extremities. NEUROLOGICAL: Normal speech with intact sensation, cranial nerves III-XII normal, no signs of gross focal neurologic deficit. PSYCHIATRIC: Normal mood and affect LABORATORY DATA: See below. IMAGIN. 01/09/2021 Chest X-ray reported as: Borderline heart size. Prominent vascular and interstitial markings. Discoid atelectasis left base. 2. 01/09/2021 CT angio chest reported as: Limited study for evaluation of the pulmonary embolism secondary to motion artifact. Small central filling defect in the left upper lobe pulmonary artery branch (series 401, image 71). Left lower lobe subsegmental branches are difficult to evaluate secondary to motion artifact. Pleural based density in the left lung base measuring 19 x 34 x 40 mm. Small focal density in the anterolateral lower lobe. Differential diagnosis would include pneumonia, however, pulmonary infarction secondary to small left lower lobe pulmonary embolism cannot be completely excluded given limitation of the motion artifact. There is 5.3 mm nodule in the left lower lobe (series 402, image 46). Given densities and lung nodule, neoplastic process cannot be completely excluded, clinical correlation and further workup with PET scan is recommended. Mild diffuse ground-glass airspace opacities likely representing edema. MICROBIOLOGY: Please see below. ASSESSMENT: Patient is a 60 y/o F with PMHx of DM2, HTN, COPD (no home O2), asthma, fibromyalgia and GERD, presenting to the ED c/o L flank pain. In the ED, patient was found with elevated D-dimer (1521.36) and elevated lactic acid (2.7). CXR was remarkable for "Prominent vascular and interstitial markings. Discoid atelectasis left base". CTA chest showed "small central filling defect in the left upper lobe pulmonary artery branch (series 401, image 71). Pleural based density in the left lung base measuring 19 x 34 x 40 mm with differential diagnosis including pneumonia, however, pulmonary infarction secondary to small left lower lobe pulmonary embolism cannot be completely excluded given limitation of the motion artifact. Patient was started on heparin gtt in the ED. PLAN: # Pulmonary infarction 2/2 small L lower lobe PE - Likely provoked, patient has reduced activity level due to recent R tibia fraction on 01/05. - Currently hemodynamically stable - Trop x2 negative - EKG showed no acute changes - Started on heparin gtt in ED, cont heparin, will need to be on anticoagulant regimen for 3-6 months - Echocardiogram ordered - Telemetry ordered - Unable to perform venous doppler US of RLE due to splint, however, no signs of vascular compromise in RLE (normal capillary refill with intact sensory and motor function). # Elevated lactic acid - LA of 2.7 in ED, 4hr repeat improved to 1.5 - 101.1F fever only on arrival in ED and has resolved and mild leukocytosis 13.6. - No other signs of infection at this time - Likely 2/2 type A lactic acidosis in the setting of acute hypoxia - F/u BCx x2 - No indication for antibiotics at this time. - F/u procalcitonin # DM2 - Hgb a1c returned 12.4 - Start levemir 6 units BID - SSI - Hold metformin # L groin rash - Patient dx with yeast infection of skin 3 weeks ago by PCP and rash have mostly resolved - Cont nystatin powder # Left lower lobe nodule - CTA chest showed 5.3 mm nodule in the left lower lobe, neoplastic process cannot be excluded - Will need outpatient follow up # HTN - Cont lisinopril # asthma - Cont diphehydramine, loratadine and montelukast # GERD - Cont omeprazole # Fibromyalgia - Cont gabapentin and quetiapine # nicotine dependence - smoking cessation counseling - nicotine patch ordered Code status: Full code DVT Prophylaxis: Heparin in the setting of PE Diet: Consistent carbohydrate diet Baseline ambulatory status: Ambulatory prior to RLE fx, now ambulate with crutches Disposition: Expect hospital course of <2 midnight with discharge if patient is stable without further complications. Vital Signs Vital Signs Date Time Temp Pulse Resp B/P (MAP) Pulse Ox O2 Delivery O2 Flow Rate FiO2 01/09/21 15:15 98.1 87 17 142/80 (100) 95 01/09/21 14:45 Room Air 01/09/21 12:00 2.0 Laboratory Data Labs 24H Laboratory Tests 2 01/09/21 06:26: Prothrombin Time 13.2, Prothromb Time International Ratio 0.99, D-Dimer, Q uantitative 1527.36H 01/09/21 06:27: Immature Granulocyte % (Auto) 0.6, Neutrophils (%) (Auto) 78.2H, Lymphocytes (%) (Auto) 13.6L, Monocytes (%) (Auto) 6.9, Eosinophils (%) (Auto) 0.2, Basophils (%) (Auto) 0.5, Neutrophils # (Auto) 10.6H, Lymphocytes # (Auto) 1.8, Monocytes # (Auto) 0.9H, Eosinophils # (Auto) 0.0, Basophils # (Auto) 0.1, Nucleated Red Blood Cells % (auto) 0.0, Anion Gap 9, Glomerular Filtration Rate > 60.0, Lactic Acid Level 2.7*H, Calcium Level 9.1, Total Bilirubin 0.3, Direct Bilirubin < 0.1, Aspartate Amino Transf (AST/SGOT) 8, Alanine Aminotransferase (ALT/SGPT) 12, Alkaline Phosphatase 135H, Total Creatine Kinase 40, Creatine Kinase MB < 1.0, Creatine Kinase MB Relative Index 2.50, Troponin I < 0.02, DR-Qid-X-Type Natriuretic Peptide 119, Total Protein 7.6, Albumin 3.0L, Albumin/Globulin Ratio 0.7L, Coronavirus (COVID-19)(PCR) NEGATIVE, Influenza Type A (RT-PCR) NEGATIVE, Influenza Type B (RT-PCR) NEGATIVE, Respiratory Syncytial Virus (PCR) NEGATIVE 01/09/21 09:03: Activated Partial Thromboplast Time 30.3 01/09/21 12:05: Lactic Acid Followup at 4 Hours 1.5 01/09/21 12:09: Estimated Mean Plasma Glucose 309H, Hemoglobin A1c 12.4 01/09/21 14:31: Troponin I < 0.02 CBC/BMP Laboratory Tests 01/09/21 06:27 Microbiology Microbiology 01/09/21 Blood Culture, Received Pending 01/09/21 Blood Culture, Received Pending Home Medications Scheduled Lisinopril (Lisinopril) 20 Mg Tab, 20 MG PO QHS Loratadine (Loratadine) 10 Mg Tablet, 10 MG PO QHS Metformin HCl (Metformin HCl) 500 Mg Tablet, 500 MG PO QHS Montelukast Sodium (Singulair) 10 Mg Tab, 10 MG PO QHS Omeprazole (Omeprazole) 40 Mg Cap, 40 MG PO QHS Quetiapine Fumarate (Seroquel) 300 Mg Tab, 300 MG PO QHS Scheduled PRN Diphenhydramine HCl (Diphenhydramine HCl) 25 Mg Capsule, 25 MG PO Q6H PRN for ITCHING Gabapentin (Gabapentin) 600 Mg Tab, 600 MG PO BID PRN for PAIN Hydrocodone/Acetaminophen (Hydrocodone-Acetamin 5-325 mg) 1 Each Tablet, 1 TAB PO BIDP PRN for pain Allergies Coded Allergies: Penicillins (Verified Allergy, Unknown, rash, 01/09/21) codeine (Verified Allergy, Unknown, itching, 01/09/21) baclofen (Verified Adverse Reaction, Unknown, vomiting, 01/09/21) A-FIB/CHADSVASC A-FIB History Current/History of A-Fib/PAF?: No Current PO Anticoag Therapy: No GME ATTESTATION GME ATTESTATION My faculty preceptor for this patient encounter was physically present during the encounter and was fully available. All aspects of the patient interview, examination, medical decision making process, and medical care plan development were reviewed and approved by the faculty preceptor. The faculty preceptor is aware and concurs with the plan as stated in the body of this note and will attest to such by his/her cosignature. VITALIY COSBY OMS-3 Jan 09, 2021 16:34
[2021-01-09] MEDS ORDERED: HumaLOG INSULIN (NovoLOG) PER UNIT SC SCH ×2 (17:30→21:00)
[2021-01-09] MEDS ORDERED: APIXABAN 5 MG TAB (ELIQUIS) PO ONE (20:00)
--- NOTE | 2021-01-09 20:02 | ECGEPIP ---
[facility] - ED Test Date: 2021-01-09 Pat Name: JONATHAN MONROY Department: Room: - Gender: Female Customs Verifier: : [id number] Requested By: DELLA SALAZAR Order Number: [id number] Reading MD: Paco Alfredo Measurements Intervals [place] Rate: 105 P: 28 OR: 146 QRS: -27 QRSD: 84 T: 53 QT: 376 QTc: 496 Interpretive Statements Sinus tachycardia Moderate voltage criteria for LVH, may be normal variant ( R in aVL , [place] product ) POOR R WAVE PROGRESSION SIMILAR TO 05/05/19 Electronically Signed on 01-09-2021 20:02:05 EDT by Paco Alfredo
[2021-01-09] MEDS ORDERED: MONTELUKAST 10 MG TAB PO SCH (21:00)
[2021-01-09] MEDS ORDERED: QUEtiapine FUMARATE 100 MG TAB PO SCH (21:00)
[2021-01-09] MEDS ORDERED: OMEPRAZOLE 20 MG CAP PO SCH (21:00)
[2021-01-09] MEDS ORDERED: NICOTINE 7 MG/24 HR TRANSDERMAL TD SCH (21:00)
[2021-01-09] MEDS ORDERED: LORATADINE 10 MG TAB PO SCH (21:00)
[2021-01-09] MEDS ORDERED: LEVEMIR (INSULIN DETEMIR) 1 UNITS/0.01ML SC SCH (21:00)
[2021-01-10] MEDS ORDERED: ELIQ5TAB PO (08:18)
--- NOTE | 2021-01-10 10:14 | ECHO ---
DATE OF PROCEDURE: 01/09/2021 Age: 60 Gender: Female Height: 158 cm Weight: 95.7 kg REFERRING PHYSICIAN: Dr. Jessie Oseguera. INDICATION: Pulmonary embolism. MEASUREMENTS: 2D Measurements: Aortic annulus 2.3 cm Aortic root 3.4 cm Proximal ascending aorta 3.4 cm Left atrium 4.2 cm Interventricular septum 1.20 cm Posterior wall 1.15 cm Left ventricle diastole 4.3 cm Inferior vena cava 1.8 cm Doppler Measurements: Aortic valve velocity 142 cm/s Mitral E velocity 117 cm/s Mitral A velocity 106 cm/s Mitral deceleration time 169 msec Trace tricuspid regurgitation Estimated right ventricular systolic pressure 27-32 mmHg Estimated right atrial pressure of 5-10 mmHg Trace pulmonic regurgitation Pulmonary artery acceleration time 151 msec No aortic regurgitation No mitral regurgitation MITRAL ANNULAR TISSUE DOPPLER E prime septal 6.1 cm/s, E prime lateral 5.7 cm/s DESCRIPTION: Rhythm was sinus. No pericardial effusion. Image quality was fair. This was a 2D, M-mode, color flow Doppler, and pulsed wave Doppler examination and included mitral annular tissue Doppler. CONCLUSIONS: 1. Pulmonary artery systolic pressure not elevated. Normal right ventricle size and systolic function. 2. Normal left ventricle internal dimensions and wall thickness. Normal regional LV wall motion and wall thickening. Normal LV systolic function. LVEF 65-70% by visual assessment. 3. Mild left atrial dilatation. 4. Mild aortic valve sclerosis of a 3-cusp aortic valve. No aortic regurgitation. 5. Mild mitral annular calcification. No mitral stenosis. MTDD
--- NOTE | 2021-01-10 10:56 | DS.PDOC ---
Discharge Summary General Date of Admission Jan 09, 2021 at 10:56 Date of Discharge 01/09/2021 Attending Physician: RISHI TREADWELL MD Discharge Summary PROCEDURES PERFORMED DURING STAY: None. ADMITTING DIAGNOSES: 1. Pulmonary infarction 2/2 small L lower lobe PE 2. Elevated lactic acid 3. DM2 4. L groin rash 5. Left lower lobe nodule 6. HTN 7. asthma 8. GERD 9. Fibromyalgia 10. nicotine dependence DISCHARGE DIAGNOSES: 1. Pulmonary infarction 2/2 small L lower lobe PE 2. Elevated lactic acid 3. DM2 4. L groin rash 5. Left lower lobe nodule 6. HTN 7. asthma 8. GERD 9. Fibromyalgia 10. nicotine dependence COMPLICATIONS/CHIEF COMPLAINT: Pulmonary Infarct. HISTORY OF PRESENT ILLNESS: Patient is a 60 y/o F with PMHx of DM2, HTN, COPD (no home O2), asthma, fibromyalgia and GERD, presenting to the ED c/o L flank pain. Per patient, with no symptoms prior, she woke up at midnight this morning with an acute onset of L flank pain. She described pain as sharp and rated it 10/10, with radiation to L arm, chest and back. She reported associated palpitation, chills, SOB, N/V x3 (without blood), and noted her pain worsens when supine and improves upon sitting up. She denied diarrhea, leg swelling and urinary symptoms, but noted fever (101.1F at arrival in ED), cough with small amount of greenish sputum, headache and recent weightloss of 30lbs over past 2 months in which she attributed to decreased oral intake. She tried to manage her SOB by using her rescue inhaler (1 dose), but it was ineffective. She denied previous experience with similar symptoms, hx of clotting disease, current use of contraceptives and recent traveling history. However, patient reported recent ED admission s/p fall on 01/05. She had a mechanical fall, tripping down the stairs and was found with "oblique nondisplaced fracture through the proximal fibular diaphysis" on XR. She was subsequently discharged with RLE splint, hydrocondone/acetaminophen, and instructed to f/u with orthopedic surgery (Dr. Lofton) and PCP. She noted that she has had reduced ambulatory activity since discharge. Patient reported her pain remains at 8/10 after treatment in the ED. Of note, patient reported recently dx with yeast infection by PCP 3 wks ago with red rash under B/L breast and groin area. She took an antibiotic and was started on a cream in which she was unable to recall name. She reported her rash has mostly resolved. In the ED, patient was found with elevated D-dimer (1521.36) and elevated lactic acid (2.7). CXR was remarkable for "Prominent vascular and interstitial markings. Discoid atelectasis left base". CTA chest showed "small central filling defect in the left upper lobe pulmonary artery branch (series 401, image 71). Pleural based density in the left lung base measuring 19 x 34 x 40 mm. Small focal density in the anterolateral lower lobe with differential diagnosis including pneumonia, however, pulmonary infarction secondary to small left lower lobe pulmonary embolism cannot be completely excluded given limitation of the motion artifact. There is 5.3 mm nodule in the left lower lobe (series 402, image 46). Given densities and lung nodule, neoplastic process cannot be completely excluded, clinical correlation and further workup with PET scan is recommended. Mild diffuse ground-glass airspace opacities likely representing edema." She received 1 dose of doxycycline and was started on heparin gtt in the ED. HOSPITAL COURSE: Patient was initially started on heparin gtt with loading dose, followed by maintainence dose of hepain. She was then found with elevated aPTT of 129.2 upon repeating aPTT. Heparin was held for 1 hour given her elevated aPTT. In the mean time, patient's boyfriend was visiting and patient expressed desire to have her boyfriend stay overnight at the hospital. It was explained to her that overnight visitors are against our current hospital policy at this time and patient subsequently requested to sign out AMA. The risks and potential consequences of leaving AMA was explained to the patient including increased risk of RI, high bleeding risks, risks of recurrent PE and . Patient verbalized understandings of risks and continued to express desire to sign out AMA. She was given an extra dose of 10mg Eliquis 2 hours after her last elevated aPTT. 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 She was instructed to take Eliquis with the following instruction: 10mg BID for 1 week, followed by 5mg BID for a total of 3 months. She was given a prescription of Eliquis that covers the first week and first month of anticoagulation therapy, and patient was instructed to refill prescription with her PCP. Patient left AMA on 01/09 in the evening. Patient will need outpatient follow up on her diabetic regimen (a1c 12.4) and her 5.3mm left lower lobe nodule. DISCHARGE MEDICATIONS: Please see below. ALLERGIES: Please see below. PHYSICAL EXAMINATION ON DISCHARGE: Unable to perform, patient left AMA. LABORATORY DATA: Please see below. IMAGIN. 01/09/2021 Chest X-ray reported as: Borderline heart size. Prominent vascular and interstitial markings. Discoid atelectasis left base. 2. 01/09/2021 CT angio chest reported as: Limited study for evaluation of the pulmonary embolism secondary to motion artifact. Small central filling defect in the left upper lobe pulmonary artery branch (series 401, image 71). Left lower lobe subsegmental branches are difficult to evaluate secondary to motion art ifact. Pleural based density in the left lung base measuring 19 x 34 x 40 mm. Small focal density in the anterolateral lower lobe. Differential diagnosis would include pneumonia, however, pulmonary infarction secondary to small left lower lobe pulmonary embolism cannot be completely excluded given limitation of the motion artifact. There is 5.3 mm nodule in the left lower lobe (series 402, image 46). Given densities and lung nodule, neoplastic process cannot be completely excluded, clinical correlation and further workup with PET scan is recommended. Mild diffuse ground-glass airspace opacities likely representing edema. PROGNOSIS: Fair ACTIVITY: As tolerated. DIET: Carbohydrate consistent diet DISPOSITION: 07 Against Medical Advice. DISCHARGE INSTRUCTIONS: 1. Please follow up with your primary care physician in 7 days 2. Please start taking Eliquis with the following instruction: i. Please start taking Eliquis 10mg twice daily for 1 week ii. Please switch to take Eliquis 5mg twice daily for another 3 months iii. You are given prescription for 1 month of Eliquis, please follow up with your PCP to obtain a prescription refill. ITEMS TO FOLLOWUP ON ON OUTPATIENT: 1. Echocardiogram results pending 2. Patient's A1c was 12.4 in the hospital, will need further adjustment of her outpatient diabetic regimen 3. Patient's CTA chest revealed 5.3mm left lower lobe nodule with PET scan recommended, will require outpatient follow up. DISCHARGE CONDITION: Unable to assess, patient left AMA TIME SPENT ON DISCHARGE: >20 minutes Vital Signs/I&Os Vital Signs Date Time Temp Pulse Resp B/P (MAP) Pulse Ox O2 Delivery O2 Flow Rate FiO2 01/09/21 15:15 98.1 87 17 142/80 (100) 95 01/09/21 14:45 Room Air 01/09/21 12:00 2.0 I&O- Last 24 Hours up to 6 AM 01/10/21 06:00 Intake Total 3185 ml Balance 3185 ml Laboratory Data Labs 24H Laboratory Tests 2 01/09/21 09:03: Activated Partial Thromboplast Time 30.3 01/09/21 12:05: Lactic Acid Followup at 4 Hours 1.5 01/09/21 12:09: Estimated Mean Plasma Glucose 309H, Hemoglobin A1c 12.4, Procalcitonin 5.09 01/09/21 14:31: Troponin I < 0.02 01/09/21 16:43: Activated Partial Thromboplast Time 129.2*H 01/09/21 17:15: Bedside Glucose (Misc Panel) 532*H 01/09/21 17:22: Bedside Glucose (Misc Panel) 535*H FSBS Laboratory Tests Test 01/09/21 17:15 01/09/21 17:22 Range/Units Bedside Glucose (Misc Panel) 532 535 70-105 MG/DL Microbiology Microbiology 01/09/21 Blood Culture - Preliminary, Resulted No growth after 24 hours . All specim... 01/09/21 Blood Culture - Preliminary, Resulted No growth after 24 hours . All specim... Discharge Medications Scheduled Apixaban (Eliquis) 5 Mg Tablet, 5 MG PO BID Take 10mg(two 5mg pills)twice daily for 6 days. Apixaban (Eliquis) 5 Mg Tablet, 5 MG PO BID After 6 days start taking 5mg roney daily for 3 months. medication sent for 1 month, please follow with PCP for medication refil Lisinopril (Lisinopril) 20 Mg Tab, 20 MG PO QHS, (Reported) Loratadine (Loratadine) 10 Mg Tablet, 10 MG PO QHS, (Reported) Metformin HCl (Metformin HCl) 500 Mg Tablet, 500 MG PO QHS, (Reported) Montelukast Sodium (Singulair) 10 Mg Tab, 10 MG PO QHS, (Reported) Omeprazole (Omeprazole) 40 Mg Cap, 40 MG PO QHS, (Reported) Quetiapine Fumarate (Seroquel) 300 Mg Tab, 300 MG PO QHS, (Reported) Scheduled PRN Diphenhydramine HCl (Diphenhydramine HCl) 25 Mg Capsule, 25 MG PO Q6H PRN for ITCHING, (Reported) Gabapentin (Gabapentin) 600 Mg Tab, 600 MG PO BID PRN for PAIN, (Reported) Hydrocodone/Acetaminophen (Hydrocodone-Acetamin 5-325 mg) 1 Each Tablet, 1 TAB PO BIDP PRN for pain Allergies Coded Allergies: Penicillins (Verified Allergy, Unknown, rash, 01/09/21) codeine (Verified Allergy, Unknown, itching, 01/09/21) baclofen (Verified Adverse Reaction, Unknown, vomiting, 01/09/21) GME ATTESTATION GME ATTESTATION My faculty preceptor for this patient encounter was physically present during the encounter and was fully available. All aspects of the patient interview, examination, medical decision making process, and medical care plan development were reviewed and approved by the faculty preceptor. The faculty preceptor is aware and concurs with the plan as stated in the body of this note and will attest to such by his/her cosignature. VITALIY COSBY OMS-3 Jan 10, 2021 09:47
[2021-01-11 10:57] LABS: DRVV SCREEN 44.2 SEC
[2021-01-11 11:02] LABS: PTT LUPUS TYPE ANTICOAG SCREEN 1.1 (0-1.2)
== END 2021-01-09 20:06 | disposition left against medical advice (07) ==
LOC: M ED 06:09 → M ED INP 10:56 → ENRESERV 12:03 → M MSPAV 15:09
PROVIDERS: ADMIT Internal Medicine; ATTEND Internal Medicine
DX: I26.99 Other pulmonary embolism without acute cor pulmonale (principal); Z53.21 Procedure and treatment not carried out due to patient leaving prior to being seen by health care provider; R74.02 Elevation of levels of lactic acid dehydrogenase [LDH]; E11.9 Type 2 diabetes mellitus without complications; R21 Rash and other nonspecific skin eruption; R91.1 Solitary pulmonary nodule; I10 Essential (primary) hypertension; J44.9 Chronic obstructive pulmonary disease, unspecified; K21.9 Gastro-esophageal reflux disease without esophagitis; M79.7 Fibromyalgia; F17.218 Nicotine dependence, cigarettes, with other nicotine-induced disorders; Z79.01 Long term (current) use of anticoagulants; Z79.84 Long term (current) use of oral hypoglycemic drugs; Z79.899 Other long term (current) drug therapy; Z88.0 Allergy status to penicillin; Z88.1 Allergy status to other antibiotic agents; Z88.5 Allergy status to narcotic agent
CPT/HCPCS: 36415; 71045; 71275; 80048; 80076; 81240; 82550; 82553; 83036; 83605; 83880; 84145; 84311; 85025; 85300; 85301; 85303; 85305; 85379; 85610; 85730; 86147; 87040; 87631; 93005; 93041; 93306; 94760; 96361; 96365; 96375; 99285; J1644; J2930; J3010; Q9967

== ENCOUNTER 2021-01-11 01:27 | Inpatient (IN) | payer OTHER ==
[~2021-01-11] VITALS: Ht 157.5 cm; Wt 95.5 kg
[~2021-01-11 01:27] MED LIST changes: +ELIQ5TAB PO; +LORA-674 PO; +METF-839 PO
[2021-01-11 02:38] LABS: BASO # 0.1 10^3/uL (0.0-0.2); BASO % 0.4 % (0.0-1.0); EOS % 0.3 % (0.0-3.0); HEMATOCRIT 37.6 % (36.0-47.0); LYMPH # 2.3 10^3/uL (1.5-5.0); LYMPH % 17.2 % (24.0-44.0); MEAN CORPUSCULAR HEMOGLOBIN 25.7 pg (27.0-33.0); MEAN CORPUSCULAR HGB CONC 31.9 g/dl (32.0-36.5); MEAN CORPUSCULAR VOLUME 80.5 fl (80.0-96.0); MONO % 7.2 % (2.0-8.0); NEUTROPHILS # 9.9 10^3/uL (1.5-8.5); NEUTROPHILS % 73.9 % (36.0-66.0); PLATELET COUNT, AUTOMATED 442 10^3/uL (150-450); RED BLOOD COUNT 4.67 10^6/uL (4.00-5.40); WHITE BLOOD COUNT 13.4 10^3/uL (4.0-10.0)
[2021-01-11 03:00] LABS: INR 1.25
[2021-01-11 03:01] LABS: PARTIAL THROMBOPLASTIN TIME 38.6 SECONDS (24.2-38.5)
[2021-01-11] MEDS: MORPHINE 4 MG/ML 1ML VIAL/SYRINGE (J2270) IV PRN ×2 (03:01→05:36)
[2021-01-11 03:17] LABS: BLOOD UREA NITROGEN 14 MG/DL (7-18); CALCIUM LEVEL 8.9 MG/DL (8.5-10.1); CARBON DIOXIDE LEVEL 25 MEQ/L (21-32); CHLORIDE LEVEL 104 MEQ/L (98-107); CK-MB VALUE MASS < 1.0 NG/ML (<3.6); CPK CREATINE PHOSPHOKINASE 51 U/L (26-192); CREATININE FOR GFR 0.85 MG/DL (0.55-1.30); GLOMERULAR FILTRATION RATE > 60.0 (>51); GLUCOSE, FASTING 358 MG/DL (70-100); MB/CK RELATIVE INDEX 1.96 (< OR =4); POTASSIUM SERUM 3.9 MEQ/L (3.5-5.1); SODIUM LEVEL 137 MEQ/L (136-145); TROPONIN I < 0.02 NG/ML (< 0.10)
--- NOTE | 2021-01-11 04:17 | REPVR ---
PROCEDURE INFORMATION: Exam: CTA Chest With Contrast Exam date and time: 01/11/2021 2:52 AM Age: 60 years old Clinical indication: Left-sided chest pain; Additional info: Left sided chest pain, pulm infarct TECHNIQUE: Imaging protocol: Computed tomographic angiography of the chest with contrast. 3D rendering (Not supervised by radiologist): MIP and/or 3D reconstructed images were created by the technologist. Radiation optimization: All CT scans at this facility use at least one of these dose optimization techniques: automated exposure control; mA and/or kV adjustment per patient size (includes targeted exams where dose is matched to clinical indication); or iterative reconstruction. Contrast material: ISO; Contrast volume: 75 ml; Contrast route: INTRAVENOUS (IV); COMPARISON: CT ANGIO CHEST 01/09/2021 7:36 AM FINDINGS: Pulmonary arteries: Normal. No pulmonary emboli. Aorta: Atherosclerotic disease thoracic aorta. Lungs: Focal airspace consolidation in the left lower lobe mild associated mucoid impaction. Aspiration pneumonia is considered. Atelectasis or scarring in the right middle lobe lingula. Dependent and linear atelectasis at the right base. Pleural spaces: Trace left pleural effusion. Heart: Atherosclerotic disease coronary arteries. Lymph nodes: Multiple borderline enlarged left paratracheal left hilar lymph nodes. Stable subpleural 6 mm left lower lobe pulmonary nodule may represent an intra fissural lymph node. Liver: Hepatomegaly and steatosis. Gallbladder and bile ducts: Status cholecystectomy. Adrenal glands: Stable appearance a 4 cm left adrenal myelolipoma. Bones/joints: Multilevel degenerative disease thoracic spine. Soft tissues: Unremarkable. IMPRESSION: No acute pulmonary embolic disease. Focal airspace consolidation in the left lower lobe mild associated mucoid impaction. Trace left pleural effusion. Aspiration pneumonia with a parapneumonic effusion is considered. Electronically signed by: Philippe Buitrago On 01/11/2021 04:05:22 AM
[2021-01-11] MEDS ORDERED: AZITHROMYCIN 250MG TABLET PO ONE (05:00)
[2021-01-11] MEDS ORDERED: cefTRIAXone SOD 1 GM in D5W MINI-BAG PLUS 50 ML IV ONE (05:00)
[2021-01-11] MEDS ORDERED: PROAAER10 INH (05:18)
[2021-01-11] MEDS ORDERED: NYST10CR EXT (05:18)
[2021-01-11] MEDS ORDERED: ELIQ5TAB PO (05:18)
[2021-01-11] MEDS ORDERED: ACETAMINOPHEN TAB 650MG DOSE (2X325MG) PO PRN (05:40)
[2021-01-11] MEDS ORDERED: MAALOX 30 ML SUSP *UDC PO PRN (05:40)
--- NOTE | 2021-01-11 05:58 | HPEPDOC ---
[facility] Medical History & Physical Date of Admission Jan 11, 2021 Date of Service: Jan 11, 2021 History and Physical CHIEF COMPLAINT: L back pain, cough HISTORY OF PRESENT ILLNESS: 60 y/o F with PMHx of DM2, HTN, COPD (no home O2), asthma, fibromyalgia, GERD, and recent diagnosis for PE (presently on loading dose eliquis) with possible pulmonary infarct on 01/09 as well as an oblique non displaced fracture through proximal fibular diaphysis after a fall on 01/05. Patient had left AMA on 01/09 and returns today with worsening cough, SOB and L posterior chest wall pain worse on inspiration. In addition, patient states that she had showered with her splint which has since fall off. She states that she has not been weight bearing on the R leg and is using her crutches. CTA chest in the ER did not show presence of a PE but did indicate L lower lobe consolidation with mild mucoid impaction, concern for aspiration pna, pleural effusion. Patient has low grade temp and leukocytosis to 13.4. Blood cultures sent from ER. Patient received empiric ceftriaxone and azithromycin. PAST MEDICAL HISTORY: 1. DM2 2. HTN 3. COPD (no home O2) 4. Asthma 5. Fibromyalgia 6. GERD PAST SURGICAL HISTORY: 1. Cholecystectomy 2. Appendectomy 3. B/L knee replacement 4. R Rotator cuff repair in 2012 5. 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 REVIEW OF SYSTEMS: 10 point ROS conducted, relevant findings are noted in the HPI HOME MEDICATIONS: Please see below. PHYSICAL EXAMINATION: VITAL SIGNS: please see below General: NAD, comfortable HEENT: PERRLA, EOMI, sclerae clear Neck: supple, normal ROM, no JVD Respiratory: reduced air entry L middle lobe. CVS: RRR, normal S1, S2, no murmurs Abdo: soft, no masses, no hepatosplenomegaly, BS+, no rebound tenderness Extremities: R leg edema 1+. Pulses 2+ bilaterally. Pain to palpation of L ankle MSK: no joint deformities, normal ROM Neuro: no focal neuro deficits, moving all 4 extremities, CN2-12 intact. Strength 5/5 in all 4 extremities. No nystagmus. Psych: calm, cooperative, AAO x 3. Anxious LABORATORY DATA: See below. IMAGING: CTA chest (01/11/21): No acute pulmonary embolic disease. Focal airspace consolidation in the left lower lobe mild associated mucoid impaction. Trace left pleural effusion. Aspiration pneumonia with a parapneumonic effusion is considered. MICROBIOLOGY: Please see below. ASSESSMENT: 60 y/o F with PMHx of DM2, HTN, COPD (no home O2), asthma, fibromyalgia, GERD, and recent diagnosis for PE with possible pulmonary infarct on 01/09 as well as an oblique non displaced fracture through proximal fibular diaphysis after a fall on 01/05. Patient is admitted to hospitalist service for management of suspected pneumoa vs parapneumonic effusion 2/2 pulmonary infarct. . PLAN: Posterior chest wall pain possibly 2/2 pulmonary infarct vs parepneumonic effusion/pneumonia - CT angio showing consolidation in L lower lob with mucoid impaction and trace pleural effusion. Concern for pna/parapneumonic effusion - WBC 13.4. Low grade temp 99.4. - s/p ceftriaxone and azithromycin, will continue present regimen - f/u blood cultures, sputum cultures, legionella and strep pneumo antigens Pulmonary embolism - high suspicion for PE on CTA from 01/09/21 at [facility] ER, patient was started on eliquis - c/w eliquis 10 mg BID x 6 more days, followed by eliquis 5 mg BID - no PE seen on repeat CTA compared to study from 01/09/21 R oblique nondisplaced fracture through the proximal fibular diaphysis - RLE splint detached, got wet in shower - repeat tibia/fibular XR - ankle XR - check venous duplex - I spoke to Dr. Lofton, patient is due for a clinic appt on 01/12/21 in clinic, recommends non weight bearing on R leg - check XRs, if displaced fx to call ortho back - paint control percocet, morphine for breakthrough # DM2 - recent a1c 12.4 - ISS and FSBS AC and HS - hypoglycemic precautions # Left lower lobe nodule - CTA chest showed 5.3 mm nodule in the left lower lobe, neoplastic process cannot be excluded - Will need outpatient follow up # HTN - Cont lisinopril # asthma - Cont diphehydramine, loratadine and montelukast # GERD - Cont omeprazole # Fibromyalgia - Cont gabapentin and quetiapine # nicotine dependence - smoking cessation counseling - nicotine patch ordered Dispo: pending clinical improvement Vital Signs Vital Signs Date Time Temp Pulse Resp B/P (MAP) Pulse Ox O2 Delivery O2 Flow Rate FiO2 01/11/21 05:36 20 Room Air 01/11/21 02:15 01/11/21 01:27 99.2 94 97 Laboratory Data Labs 24H Laboratory Tests 2 01/11/21 02:28: Immature Granulocyte % (Auto) 1.0, Neutrophils (%) (Auto) 73.9H, Lymphocytes (%) (Auto) 17.2L, Monocytes (%) (Auto) 7.2, Eosinophils (%) (Auto) 0.3, Basophils (%) (Auto) 0.4, Neutrophils # (Auto) 9.9H, Lymphocytes # (Auto) 2.3, Monocytes # (Auto) 1.0H, Eosinophils # (Auto) 0.0, Basophils # (Auto) 0.1, Nucleated Red Blood Cells % (auto) 0.0, Prothrombin Time 16.0H, Prothromb Time International Ratio 1.25, Activated Partial Thromboplast Time 38.6H, Anion Gap 8, Glomerular Filtration Rate > 60.0, Lactic Acid Level 1.7, Calcium Level 8.9, Total Creatine Kinase 51, Creatine Kinase MB < 1.0, Creatine Kinase MB Relative Index 1.96, Troponin I < 0.02 01/11/21 05:25: CBC/BMP Laboratory Tests 01/11/21 02:28 Microbiology Microbiology 01/11/21 Blood Culture, Received Pending Home Medications Scheduled Apixaban (Eliquis) 5 Mg Tablet, 10 MG PO BID STARTED ON 01/10/21 Gabapentin (Gabapentin) 600 Mg Tab, 600 MG PO TID Loratadine (Loratadine) 10 Mg Tablet, 10 MG PO QHS Metformin HCl (Metformin HCl) 500 Mg Tablet, 500 MG PO QHS Montelukast Sodium (Singulair) 10 Mg Tab, 10 MG PO QHS Omeprazole (Omeprazole) 40 Mg Cap, 40 MG PO QHS Quetiapine Fumarate (Seroquel) 300 Mg Tab, 300 MG PO QHS Scheduled PRN Albuterol Sulfate (Proair Hfa) 8.5 Gm Hfa.aer.ad, 2 PUFF INH Q4H PRN for SHORTNESS OF BREATH Diphenhydramine HCl (Diphenhydramine HCl) 25 Mg Capsule, 25 MG PO Q6H PRN for ITCHING Nystatin (Nystatin) 15 Gm Cream..g., 1 DOSE EXT BID PRN for RASH APPLY UNDER BREASTS AND GROIN Allergies Coded Allergies: Penicillins (Verified Allergy, Unknown, rash, 01/09/21) codeine (Verified Allergy, Unknown, itching, 01/09/21) baclofen (Verified Adverse Reaction, Unknown, vomiting, 01/09/21) A-FIB/CHADSVASC A-FIB History Current/History of A-Fib/PAF?: No Current PO Anticoag Therapy: Yes ANI POTTS MD Jan 11, 2021 05:58
[2021-01-11] MEDS ORDERED: diphenhydrAMINE 25MG CAP PO PRN (06:05)
[2021-01-11] MEDS ORDERED: NYSTATIN CREAM 15 GM EXT PRN (06:05)
[2021-01-11] MEDS ORDERED: MORPHINE 2 MG/ML 1ML VIAL (J2270) IV PRN (06:10)
[2021-01-11 06:17] LABS: RSV AMPLIFICATION NEGATIVE (NEGATIVE)
--- NOTE | 2021-01-11 07:06 | REPVR ---
PROCEDURE INFORMATION: Exam: US Duplex Right Lower Extremity Veins, Limited Exam date and time: 01/11/2021 6:48 AM Age: 60 years old Clinical indication: Swelling (edema) of limb; Lower extremity, right; Additional info: Swelling, pain, R/O dvt TECHNIQUE: Imaging protocol: Real-time Duplex ultrasound of the Right Lower Extremity with 2-D prince scale, color Doppler flow and spectral waveform analysis with image documentation. Limited exam was focused on the right lower extremity veins. COMPARISON: US Duplex, Ext,LOWER veins,unilat 05/12/2014 4:29 PM FINDINGS: Right deep veins: Unremarkable. The common femoral, femoral, proximal profunda femoral and popliteal veins are patent without thrombus. Normal Doppler waveforms. Normal compressibility and/or augmentation response. Right superficial veins: Unremarkable. Saphenofemoral junction is patent without thrombus. Soft tissues: Unremarkable. IMPRESSION: No evidence of deep vein thrombosis. Electronically signed by: Philippe Buitrago On 01/11/2021 07:05:56 AM
[2021-01-11] MEDS ORDERED: GLUCAGON INJ 1MG VIAL SC PRN (07:15)
[2021-01-11] MEDS ORDERED: GLUCOSE 4GM CHEW TABLET PO PRN (07:15)
[2021-01-11] MEDS ORDERED: DEXTROSE 50% 50 ML SYRINGE IV PRN (07:15)
[2021-01-11 08:15] VITALS: BP 141/83
--- NOTE | 2021-01-11 08:16 | REP ---
INDICATION: pain. COMPARISON: Comparison radiographs of the right ankle are from January 05, 2021.. TECHNIQUE: Four views of the right ankle are provided. FINDINGS: Findings are unchanged. There is tibiotalar and fibulotalar spurring. Achilles and plantar calcaneal spurring is noted. There is soft tissue swelling anteriorly and to a lesser extent medially and laterally about the ankle. No definite fracture is appreciated. IMPRESSION: Osteoarthritic changes and heel spurring. No definite fracture. Soft tissue swelling persists. <Electronically signed by Sean Mckeon > 01/11/21 [id number]
--- NOTE | 2021-01-11 08:17 | REP ---
INDICATION: recent acute fracture prox fibular diaphysis. COMPARISON: Comparison radiographs 05 January 2021.. TECHNIQUE: Four views of the right tib fib are obtained. FINDINGS: Four views of the right calf demonstrate a right knee arthroplasty in good position. There is an obliquely oriented nondisplaced fracture through the proximal fibular diaphysis. There is diffuse soft tissue swelling in the calf and about the knee. No tibial fracture is appreciated. The proximal fibular fracture is unchanged in position and appearance from the January 05, 2021 study.. No other fracture is seen.. No opaque foreign body noted. IMPRESSION: Nondisplaced acute fracture proximal fibular diaphysis. Right knee arthroplasty components in good position. No other fracture seen.. <Electronically signed by Sean Mckeon > 01/11/21 [id number]
[2021-01-11] MEDS: DOCUSATE SODIUM 100MG CAPSULE PO SCH ×2 (09:04→21:36)
[2021-01-11] MEDS: APIXABAN 5 MG TAB (ELIQUIS) PO SCH ×2 (09:04→21:36)
[2021-01-11] MEDS: GABAPENTIN 300 MG CAP PO SCH ×3 (09:04→21:36)
[2021-01-11] MEDS: HumaLOG INSULIN (NovoLOG) PER UNIT SC SCH ×4 (09:04→21:00)
[2021-01-11] MEDS: PERCOCET 5MG/325MG TAB PO PRN ×3 (12:43→21:39)
--- NOTE | 2021-01-11 12:57 | IPNPDOC ---
Text Note Date of Service The patient was seen on 01/11/21. NOTE SUBJECTIVE: -No acute events OBJECTIVE: VITAL SIGNS: please see below General: NAD, comfortable HEENT: PERRLA, EOMI, sclerae clear Neck: supple, normal ROM, no JVD Respiratory: Diminished sounds in posterior L middle lobe, otherwise clear. CVS: RRR, normal S1, S2, no murmurs Abdo: soft, no masses, no hepatosplenomegaly, BS+, no rebound tenderness Extremities: R leg edema 1+. Pulses 2+ bilaterally. Pain to palpation of L ankle MSK: no joint deformities, normal ROM Neuro: no focal neuro deficits, moving all 4 extremities, CN2-12 intact. Strength 5/5 in all 4 extremities. Psych: calm, cooperative, AAO x 3. LABORATORY DATA: Reviewed WBC 13.4 Hgb 12 platelets 442 na 137 K 3.9 Cr 0.85 glucose 385 IMAGING: CTA chest (01/11/21): No acute pulmonary embolic disease. Focal airspace consolidation in the left lower lobe mild associated mucoid impaction. Trace left pleural effusion. Aspiration pneumonia with a parapneumonic effusion is considered. R tib/fib XR: Four views of the right calf demonstrate a right knee arthroplasty in good position. There is an obliquely oriented nondisplaced fracture through the proximal fibular diaphysis. There is diffuse soft tissue swelling in the calf and about the knee. No tibial fracture is appreciated. The proximal fibular fracture is unchanged in position and appearance from the January 05, 2021 study.. No other fracture is seen.. No opaque foreign body noted. IMPRESSION: Nondisplaced acute fracture proximal fibular diaphysis. Right knee arthroplasty components in good position. No other fracture seen.. R ankle XR: Findings are unchanged. There is tibiotalar and fibulotalar spurring. Achilles and plantar calcaneal spurring is noted. There is soft tissue swelling anteriorly and to a lesser extent medially and laterally about the ankle. No definite fracture is appreciated. IMPRESSION: Osteoarthritic changes and heel spurring. No definite fracture. Soft tissue swelling persists. RLE doppler venous US: Right deep veins: Unremarkable. The common femoral, femoral, proximal profunda femoral and popliteal veins are patent without thrombus. Normal Doppler waveforms. Normal compressibility and/or augmentation response. Right superficial veins: Unremarkable. Saphenofemoral junction is patent without thrombus. Soft tissues: Unremarkable. IMPRESSION: No evidence of deep vein thrombosis. MICROBIOLOGY: Please see below. ASSESSMENT: 60 y/o F with PMHx of DM2, HTN, COPD (no home O2), asthma, fibromyalgia, GERD, and recent diagnosis for PE with possible pulmonary infarct on 01/09 as well as an oblique non displaced fracture through proximal fibular diaphysis after a fall on 01/05 who recently left AMA and now readmitted with suspected pneumonia vs parapneumonic effusion 2/2 pulmonary infarct. PLAN: Posterior chest wall pain possibly 2/2 pulmonary infarct vs parepneumonic effusion/pneumonia - CTA with consolidation in L lower lob with mucoid impaction and trace pleural effusion. Concern for pna/parapneumonic effusion with WBC 13.4 and low grade temp 99.4. - Continue ceftriaxone and azithromycin, day 2 - f/u blood cultures, sputum cultures, legionella and strep pneumo antigens Pulmonary embolism - c/w eliquis 10 mg BID x 5 more days, followed by eliquis 5 mg BID - no PE seen on repeat CTA compared to study from 01/09/21 R oblique nondisplaced fracture through the proximal fibular diaphysis - RLE splint detached, got wet in shower - Admitting doc spoke with Dr. Lofton, patient is due for a clinic appt on 01/12/21 in clinic, recommends non weight bearing on R leg. Ortho consult - paint control percocet, morphine for breakthrough # DM2 - recent a1c 12.4 - ISS and FSBS AC and HS - hypoglycemic precautions # Left lower lobe nodule - CTA chest showed 5.3 mm nodule in the left lower lobe, neoplastic process ca nnot be excluded - Will need outpatient follow up # HTN - Cont lisinopril # asthma - Cont diphehydramine, loratadine and montelukast # GERD - Cont omeprazole # Fibromyalgia - Cont gabapentin and quetiapine # nicotine dependence - smoking cessation counseling - nicotine patch ordered Dispo: pending clinical improvement VS,Sophy, I+O VS, Cesarbone, I+O Laboratory Tests 01/11/21 02:28 Vital Signs Date Time Temp Pulse Resp B/P (MAP) Pulse Ox O2 Delivery O2 Flow Rate FiO2 01/11/21 08:15 98.6 92 20 141/83 (102) 95 Room Air MIS FONG MD Jan 11, 2021 10:06
[2021-01-11 14:00] VITALS: BP 134/84
[2021-01-11] MEDS: ONDANSETRON 4MG/2ML VIAL IV PRN (16:09)
[2021-01-11] MEDS: LORATADINE 10 MG TAB PO SCH (21:36)
[2021-01-11] MEDS: OMEPRAZOLE 20 MG CAP PO SCH (21:36)
[2021-01-11] MEDS: MONTELUKAST 10 MG TAB PO SCH (21:36)
[2021-01-11] MEDS: QUEtiapine FUMARATE 100 MG TAB PO SCH (21:37)
[2021-01-11 22:00] VITALS: BP 153/93
--- NOTE | 2021-01-11 22:51 | ECGEPIP ---
[facility] - ED Test Date: 2021-01-11 Pat Name: JONATHAN MONROY Department: Room: 0102 Gender: Female [employer] T[employer]: HIMANSHU : [id number] Requested By: THOR Gallardo Order Number: [id number] Reading MD: Paco Alfredo Measurements Intervals [place] Rate: 90 P: 36 IA: 146 QRS: -23 QRSD: 86 T: 44 QT: 392 QTc: 479 Interpretive Statements Sinus rhythm with occasional premature ventricular complexes Minimal voltage criteria for LVH, may be normal variant ( Randy product ) Nonspecific T wave abnormality POOR R WAVE PROGRESSION SIMILAR TO 01/09/21 Electronically Signed on 01-11-2021 22:51:32 EDT by Paco Alfredo
[2021-01-12] MEDS: cefTRIAXone SOD 1 GM in D5W MINI-BAG PLUS 50 ML IV SCH (04:19)
[2021-01-12] MEDS: AZITHROMYCIN INJ 500 MG, VIAL MATE ADAPTER 1 EACH in NS 250 ML IV SCH (05:16)
[2021-01-12] MEDS: PERCOCET 5MG/325MG TAB PO PRN ×3 (05:53→21:07)
[2021-01-12 06:00] VITALS: BP 123/65
[2021-01-12 06:03] LABS: BASO # 0.1 10^3/uL (0.0-0.2); BASO % 0.5 % (0.0-1.0); EOS # 0.1 10^3/uL (0.0-0.5); EOS % 0.9 % (0.0-3.0); HEMATOCRIT 37.1 % (36.0-47.0); HEMOGLOBIN 11.8 g/dl (12.0-15.5); LYMPH # 2.8 10^3/uL (1.5-5.0); MEAN CORPUSCULAR HEMOGLOBIN 25.5 pg (27.0-33.0); MEAN CORPUSCULAR HGB CONC 31.8 g/dl (32.0-36.5); MEAN CORPUSCULAR VOLUME 80.1 fl (80.0-96.0); MONO % 8.5 % (2.0-8.0); NEUTROPHILS # 7.6 10^3/uL (1.5-8.5); NEUTROPHILS % 64.7 % (36.0-66.0); PLATELET COUNT, AUTOMATED 403 10^3/uL (150-450); RED BLOOD COUNT 4.63 10^6/uL (4.00-5.40); WHITE BLOOD COUNT 11.7 10^3/uL (4.0-10.0)
[2021-01-12 06:32] LABS: ALBUMIN 2.4 GM/DL (3.2-5.2); ALT/SGPT 7 U/L (12-78); BILIRUBIN,TOTAL 0.3 MG/DL (0.2-1.0); BLOOD UREA NITROGEN 9 MG/DL (7-18); CALCIUM LEVEL 8.6 MG/DL (8.5-10.1); CARBON DIOXIDE LEVEL 25 MEQ/L (21-32); CHLORIDE LEVEL 102 MEQ/L (98-107); CREATININE FOR GFR 0.67 MG/DL (0.55-1.30); GLOMERULAR FILTRATION RATE > 60.0 (>51); GLUCOSE, FASTING 220 MG/DL (70-100); MAGNESIUM LEVEL 1.9 MG/DL (1.8-2.4); POTASSIUM SERUM 3.3 MEQ/L (3.5-5.1); SODIUM LEVEL 136 MEQ/L (136-145); TOTAL PROTEIN 7.1 GM/DL (6.4-8.2)
[2021-01-12] MEDS: GABAPENTIN 300 MG CAP PO SCH ×3 (08:01→21:06)
[2021-01-12] MEDS: DOCUSATE SODIUM 100MG CAPSULE PO SCH ×2 (08:01→21:06)
[2021-01-12] MEDS: APIXABAN 5 MG TAB (ELIQUIS) PO SCH ×2 (08:01→21:07)
[2021-01-12] MEDS: HumaLOG INSULIN (NovoLOG) PER UNIT SC SCH ×4 (08:02→21:09)
[2021-01-12] MEDS ORDERED: POTASSIUM CHLORIDE 10 MEQ SR TABLET PO ONE (09:45)
[2021-01-12] MEDS: ONDANSETRON 4MG/2ML VIAL IV PRN (12:35)
--- NOTE | 2021-01-12 13:36 | IPNPDOC ---
Text Note Date of Service The patient was seen on 01/12/21. NOTE SUBJECTIVE: -No acute events OBJECTIVE: VITAL SIGNS: please see below General: NAD, comfortable HEENT: PERRLA, EOMI, sclerae clear Neck: supple, normal ROM, no JVD Respiratory: Diminished sounds in posterior L middle lobe, otherwise clear. CVS: RRR, normal S1, S2, no murmurs Abdo: soft, no masses, no hepatosplenomegaly, BS+, no rebound tenderness Extremities: R leg edema 1+. Pulses 2+ bilaterally. Pain to palpation of L ankle MSK: no joint deformities, normal ROM Neuro: no focal neuro deficits, moving all 4 extremities, CN2-12 intact. Strength 5/5 in all 4 extremities. Psych: calm, cooperative, AAO x 3. LABORATORY DATA: Reviewed WBC 11.7 Hgb 11.8 platelets 403 na 136 K 3.3 (repleted) Cr 0.67 IMAGING: CTA chest (01/11/21): No acute pulmonary embolic disease. Focal airspace consolidation in the left lower lobe mild associated mucoid impaction. Trace left pleural effusion. Aspiration pneumonia with a parapneumonic effusion is considered. R tib/fib XR: Four views of the right calf demonstrate a right knee arthroplasty in good position. There is an obliquely oriented nondisplaced fracture through the proximal fibular diaphysis. There is diffuse soft tissue swelling in the calf and about the knee. No tibial fracture is appreciated. The proximal fibular fracture is unchanged in position and appearance from the January 05, 2021 study.. No other fracture is seen.. No opaque foreign body noted. IMPRESSION: Nondisplaced acute fracture proximal fibular diaphysis. Right knee arthroplasty components in good position. No other fracture seen.. R ankle XR: Findings are unchanged. There is tibiotalar and fibulotalar spurring. Achilles and plantar calcaneal spurring is noted. There is soft tissue swelling anteriorly and to a lesser extent medially and laterally about the ankle. No definite fracture is appreciated. IMPRESSION: Osteoarthritic changes and heel spurring. No definite fracture. Soft tissue swelling persists. RLE doppler venous US: Right deep veins: Unremarkable. The common femoral, femoral, proximal profunda femoral and popliteal veins are patent without thrombus. Normal Doppler waveforms. Normal compressibility and/or augmentation response. Right superficial veins: Unremarkable. Saphenofemoral junction is patent without thrombus. Soft tissues: Unremarkable. IMPRESSION: No evidence of deep vein thrombosis. MICROBIOLOGY: Please see below. ASSESSMENT: 60 y/o F with PMHx of DM2, HTN, COPD (no home O2), asthma, fibromyalgia, GERD, and recent diagnosis for PE with possible pulmonary infarct on 01/09 as well as an oblique non displaced fracture through proximal fibular diaphysis after a fall on 01/05 who recently left AMA and now readmitted with suspected pneumonia vs parapneumonic effusion 2/2 pulmonary infarct. PLAN: Posterior chest wall pain possibly 2/2 pulmonary infarct vs parepneumonic effusion/pneumonia - CTA with consolidation in L lower lob with mucoid impaction and trace pleural effusion. Concern for pna/parapneumonic effusion with WBC 13.4 and low grade temp 99.4. - Continue ceftriaxone and azithromycin, day 3 - f/u blood cultures, sputum cultures, legionella and strep pneumo antigens Pulmonary embolism - c/w eliquis 10 mg BID x 5 more days, followed by eliquis 5 mg BID - no PE seen on repeat CTA compared to study from 01/09/21 R oblique nondisplaced fracture through the proximal fibular diaphysis - RLE splint detached, got wet in shower - Admitting doc spoke with Dr. Lofton, patient is due for a clinic appt on 01/12/21 in clinic, recommends non weight bearing on R leg--> not adhering. Ortho consulted, Dr. Steele to see her this PM - paint control percocet, morphine for breakthrough - PT/OT # DM2 - recent a1c 12.4 - ISS and FSBS AC and HS - hypoglycemic precautions # Left lower lobe nodule - CTA chest showed 5.3 mm nodule in the left lower lobe, neoplastic process cannot be excluded - Will need outpatient follow up # HTN - Cont lisinopril # asthma - Cont diphehydramine, loratadine and montelukast # GERD - Cont omeprazole # Fibromyalgia - Cont gabapentin and quetiapine # nicotine dependence - smoking cessation counseling - nicotine patch ordered Dispo: pending clinical improvement VS,Fishbone, I+O VS, Fishbone, I+O Laboratory Tests 01/12/21 05:27 Vital Signs Date Time Temp Pulse Resp B/P (MAP) Pulse Ox O2 Delivery O2 Flow Rate FiO2 01/12/21 06:23 17 01/12/21 06:00 98.7 95 123/65 (84) 91 Room Air I&O- Last 24 Hours up to 6 AM 01/12/21 06:00 Intake Total 1600 ml Output Total 1700 ml Balance -100 ml MIS FONG MD Jan 12, 2021 09:33
[2021-01-12 14:00] VITALS: BP 124/69
--- NOTE | 2021-01-12 15:36 | REP ---
INDICATION: Stress. If unclear please call Dr. Steele [phone]. COMPARISON: None. TECHNIQUE: AP and oblique view only FINDINGS: There are degenerative changes seen distal to the distal fibular head and medial malleolus.. The mortise is intact. There is no evidence of an acute fracture. IMPRESSION: As above <Electronically signed by Deo Garcia > 01/12/21 [id number]
[2021-01-12] MEDS: LORATADINE 10 MG TAB PO SCH (21:06)
[2021-01-12] MEDS: OMEPRAZOLE 20 MG CAP PO SCH (21:06)
[2021-01-12] MEDS: MONTELUKAST 10 MG TAB PO SCH (21:07)
[2021-01-12] MEDS: QUEtiapine FUMARATE 100 MG TAB PO SCH (21:07)
[2021-01-12 22:00] VITALS: BP 142/92
--- NOTE | 2021-01-13 00:58 | ER ---
FLOOR CONSULTATION DATE: 01/12/2021 at 6:00 p.m. CONSULTED SERVICE: Orthopedic surgery. CONSULTED PHYSICIAN: Jorge Steele MD HISTORY OF PRESENT ILLNESS: This is a 60-year-old female with a right proximal fibular fracture as well as a likely partial distal syndesmotic sprain. The patient sustained a ground level fall on the December. She was initially seen by Dr. Lofton, who placed her in a L and U splint. The splint was soiled by water. I was consulted to evaluate the fracture and right syndesmotic injury and recommendations regarding splint replacement. She had been non-weightbearing to the right lower extremity and compliant as so. PAST MEDICAL HISTORY: Patient has multiple medical comorbidities to include diabetes, hypertension, COPD, asthma, fibromyalgia, GERD and recent diagnosis of pulmonary embolism with possible pulmonary infarct on the December. She has been seen by the [facility] medicine hospitalist team for the aforementioned medical comorbidities. REVIEW OF SYSTEMS: A 14-point review of systems was negative unless as otherwise described in the HPI. PHYSICAL EXAMINATION: Alert to person, time and place x3. Patient had tenderness to palpation about the proximal fibula on the right side. She had some 7/10 pain with squeeze of the syndesmosis distally at the level of the ankle joint. She otherwise has 5/5 motor strength to the EHL, FHL, tibialis anterior, gastrosoleus and peroneal musculature. Sensation intact to light touch to the deep and superficial peroneal, sural, saphenous, and tibial nerve distributions. Under 2 second capillary refill to the digits. 2+ dorsalis pedis and posterior tibial arterial pulse. RADIOGRAPHS; Demonstrate a minimally displaced proximal fibular fracture and no fractures of the ankle. External rotation and gravity stretch at the patient's right ankle demonstrates no medial clear space opening, no translation of the tibialis and normal tibia fibula overlap. IMPRESSION: A 60-year-old female with a proximal right fibular minimally displaced fracture with a sprain at the syndesmosis. PLAN: At this point in time, given the fact that she has spent one week non-weightbearing in a splint, patient has no compliance with keeping her splint clean and she is bedbound in the hospital. I have elected to keep her out of a splint at this point in time, however, she will remain non-weightbearing to the right lower extremity. I do recommend the patient receive a removable ankle brace prior to discharge by physical therapy, however given the fact that she is approaching two weeks without non-weightbearing, I feel that she does not require CAM boot or L and U splint at this point in time. We will continue to follow this patient in the clinic. She can follow-up in the orthopedic clinic at [facility] on the January.
[2021-01-13] MEDS: cefTRIAXone SOD 1 GM in D5W MINI-BAG PLUS 50 ML IV SCH (05:12)
[2021-01-13] MEDS: AZITHROMYCIN INJ 500 MG, VIAL MATE ADAPTER 1 EACH in NS 250 ML IV SCH (05:52)
[2021-01-13] MEDS: PERCOCET 5MG/325MG TAB PO PRN ×3 (05:52→17:40)
[2021-01-13 06:00] VITALS: BP 139/81
[2021-01-13 07:56] LABS: BASO # 0.1 10^3/uL (0.0-0.2); BASO % 0.6 % (0.0-1.0); EOS # 0.1 10^3/uL (0.0-0.5); HEMATOCRIT 36.1 % (36.0-47.0); HEMOGLOBIN 11.6 g/dl (12.0-15.5); LYMPH # 2.1 10^3/uL (1.5-5.0); LYMPH % 17.6 % (24.0-44.0); MEAN CORPUSCULAR HEMOGLOBIN 25.4 pg (27.0-33.0); MEAN CORPUSCULAR HGB CONC 32.1 g/dl (32.0-36.5); MEAN CORPUSCULAR VOLUME 79.2 fl (80.0-96.0); MONO # 1.2 10^3/uL (0.0-0.8); MONO % 9.4 % (2.0-8.0); NEUTROPHILS # 8.4 10^3/uL (1.5-8.5); NEUTROPHILS % 69.2 % (36.0-66.0); PLATELET COUNT, AUTOMATED 405 10^3/uL (150-450); RED BLOOD COUNT 4.56 10^6/uL (4.00-5.40); WHITE BLOOD COUNT 12.2 10^3/uL (4.0-10.0)
[2021-01-13 08:32] LABS: ALBUMIN 2.4 GM/DL (3.2-5.2); ALT/SGPT 7 U/L (12-78); BILIRUBIN,TOTAL 0.3 MG/DL (0.2-1.0); BLOOD UREA NITROGEN 8 MG/DL (7-18); CALCIUM LEVEL 8.4 MG/DL (8.5-10.1); CARBON DIOXIDE LEVEL 25 MEQ/L (21-32); CHLORIDE LEVEL 100 MEQ/L (98-107); GLOMERULAR FILTRATION RATE > 60.0 (>51); GLUCOSE, FASTING 314 MG/DL (70-100); MAGNESIUM LEVEL 1.9 MG/DL (1.8-2.4); POTASSIUM SERUM 3.9 MEQ/L (3.5-5.1); SODIUM LEVEL 134 MEQ/L (136-145); TOTAL PROTEIN 6.4 GM/DL (6.4-8.2)
[2021-01-13] MEDS: ALBUTEROL 90 MCG/ACT 8GM HFA INHALER INH PRN ×2 (09:33→17:51)
[2021-01-13] MEDS: CEFUROXIME 500 MG TAB PO SCH ×2 (10:29→20:02)
[2021-01-13] MEDS: HumaLOG INSULIN (NovoLOG) PER UNIT SC SCH ×4 (10:29→20:10)
[2021-01-13] MEDS: APIXABAN 5 MG TAB (ELIQUIS) PO SCH ×2 (10:30→20:02)
[2021-01-13] MEDS: DOCUSATE SODIUM 100MG CAPSULE PO SCH ×2 (10:30→20:03)
[2021-01-13] MEDS: MOM 30ML SUSPENSION UDC PO PRN (10:30)
[2021-01-13] MEDS: BENZONATATE 100 MG CAP PO SCH ×3 (10:30→20:03)
[2021-01-13] MEDS: DOXYCYCLINE HYCLATE 100MG TABLET PO SCH ×2 (10:30→20:03)
[2021-01-13] MEDS: GABAPENTIN 300 MG CAP PO SCH ×3 (10:30→20:02)
--- NOTE | 2021-01-13 12:10 | IPNPDOC ---
Text Note Date of Service The patient was seen on 01/13/21. NOTE SUBJECTIVE: -No acute events OBJECTIVE: VITAL SIGNS: please see below General: NAD, comfortable HEENT: PERRLA, EOMI, sclerae clear Neck: supple, normal ROM, no JVD Respiratory: Diminished sounds in posterior L middle lobe, otherwise clear. CVS: RRR, normal S1, S2, no murmurs Abdo: soft, no masses, no hepatosplenomegaly, BS+, no rebound tenderness Extremities: R leg edema 1+. Pulses 2+ bilaterally. Pain to palpation of L ankle MSK: no joint deformities, normal ROM Neuro: no focal neuro deficits, moving all 4 extremities, CN2-12 intact. Strength 5/5 in all 4 extremities. Psych: calm, cooperative, AAO x 3. LABORATORY DATA: Reviewed, pending AM labs IMAGING: CTA chest (01/11/21): No acute pulmonary embolic disease. Focal airspace consolidation in the left lower lobe mild associated mucoid impaction. Trace left pleural effusion. Aspiration pneumonia with a parapneumonic effusion is considered. R tib/fib XR: Four views of the right calf demonstrate a right knee arthroplasty in good position. There is an obliquely oriented nondisplaced fracture through the proximal fibular diaphysis. There is diffuse soft tissue swelling in the calf and about the knee. No tibial fracture is appreciated. The proximal fibular fracture is unchanged in position and appearance from the January 05, 2021 study.. No other fracture is seen.. No opaque foreign body noted. IMPRESSION: Nondisplaced acute fracture proximal fibular diaphysis. Right knee arthroplasty components in good position. No other fracture seen.. R ankle XR: Findings are unchanged. There is tibiotalar and fibulotalar spurring. Achilles and plantar calcaneal spurring is noted. There is soft tissue swelling anteriorly and to a lesser extent medially and laterally about the ankle. No definite fracture is appreciated. IMPRESSION: Osteoarthritic changes and heel spurring. No definite fracture. Soft tissue swelling persists. RLE doppler venous US: Right deep veins: Unremarkable. The common femoral, femoral, proximal profunda femoral and popliteal veins are patent without thrombus. Normal Doppler waveforms. Normal compressibility and/or augmentation response. Right superficial veins: Unremarkable. Saphenofemoral junction is patent without thrombus. Soft tissues: Unremarkable. IMPRESSION: No evidence of deep vein thrombosis. R ankle XR: There are degenerative changes seen distal to the distal fibular head and medial malleolus. The mortise is intact. There is no evidence of an acute fracture. MICROBIOLOGY: Please see below. ASSESSMENT: 60 y/o F with PMHx of DM2, HTN, COPD (no home O2), asthma, fibromyalgia, GERD, and recent diagnosis for PE with possible pulmonary infarct on 01/09 as well as an oblique non displaced fracture through proximal fibular diaphysis after a fall on 01/05 who recently left AMA and now readmitted with suspected pneumonia vs parapneumonic effusion 2/2 pulmonary infarct. PLAN: Posterior chest wall pain possibly 2/2 pulmonary infarct vs parepneumonic effusion/pneumonia - CTA with consolidation in L lower lob with mucoid impaction and trace pleural effusion. Concern for pna/parapneumonic effusion with WBC 13.4 and low grade temp 99.4. - Switch from IV ceftriaxone and azithromycin, to PO ceftin/doxy, day 4 of 7 of CAP antibiotics - f/u blood cultures, sputum cultures, legionella and strep pneumo antigens Recent diagnosis of pulmonary embolism - c/w eliquis 10 mg BID x 3 more days, followed by eliquis 5 mg BID - no PE seen on repeat CTA compared to study from 01/09/21 R oblique nondisplaced fracture through the proximal fibular diaphysis - RLE splint detached, got wet in shower - Admitting doc spoke with Dr. Lofton, patient is due for a clinic appt on 01/12/21 in clinic, recommends non weight bearing on R leg--> not adhering. Ortho consulted, Dr. Steele recommended the patient receive a removable ankle brace prior to discharge by physical therapy, however given the fact that she is approaching two weeks without non-weightbearing, she does not require CAM boot or L and U splint at this point in time and ortho will continue to follow this patient in the clinic. - paint control percocet, morphine for breakthrough - PT/OT -ARU screening as PT has not gone very well # DM2 - recent a1c 12.4 - ISS and FSBS AC and HS - hypoglycemic precautions # Left lower lobe nodule - CTA chest showed 5.3 mm nodule in the left lower lobe, neoplastic process cannot be excluded - Will need outpatient follow up # HTN - Cont lisinopril # asthma - Cont diphehydramine, loratadine and montelukast # GERD - Cont omeprazole # Fibromyalgia - Cont gabapentin and quetiapine # nicotine dependence - smoking cessation counseling - nicotine patch ordered Dispo: pending clinical improvement per mobility for safe discharge planning. VS,Fishbone, I+O VS, Fishbone, I+O Vital Signs Date Time Temp Pulse Resp B/P (MAP) Pulse Ox O2 Delivery O2 Flow Rate FiO2 01/13/21 06:22 18 01/13/21 06:00 98.8 103 139/81 (100) 91 Room Air I&O- Last 24 Hours up to 6 AM 01/13/21 06:00 Intake Total 2120 ml Output Total 1325 ml Balance 795 ml MIS FONG MD Jan 13, 2021 07:52
[2021-01-13 14:00] VITALS: BP 140/84
[2021-01-13] MEDS: QUEtiapine FUMARATE 100 MG TAB PO SCH (20:02)
[2021-01-13] MEDS: OMEPRAZOLE 20 MG CAP PO SCH (20:02)
[2021-01-13] MEDS: MONTELUKAST 10 MG TAB PO SCH (20:02)
[2021-01-13] MEDS: LORATADINE 10 MG TAB PO SCH (20:03)
[2021-01-13 22:00] VITALS: BP 146/87
[2021-01-14] MEDS: PERCOCET 5MG/325MG TAB PO PRN ×4 (02:32→22:13)
[2021-01-14 06:00] VITALS: BP 136/86
[2021-01-14 06:48] LABS: BASO # 0.1 10^3/uL (0.0-0.2); BASO % 0.7 % (0.0-1.0); EOS # 0.1 10^3/uL (0.0-0.5); EOS % 1.1 % (0.0-3.0); HEMATOCRIT 35.6 % (36.0-47.0); HEMOGLOBIN 11.5 g/dl (12.0-15.5); LYMPH # 2.6 10^3/uL (1.5-5.0); LYMPH % 22.4 % (24.0-44.0); MEAN CORPUSCULAR HGB CONC 32.3 g/dl (32.0-36.5); MEAN CORPUSCULAR VOLUME 80.5 fl (80.0-96.0); MONO # 1.1 10^3/uL (0.0-0.8); MONO % 9.4 % (2.0-8.0); NEUTROPHILS # 7.5 10^3/uL (1.5-8.5); NEUTROPHILS % 63.8 % (36.0-66.0); PLATELET COUNT, AUTOMATED 388 10^3/uL (150-450); RED BLOOD COUNT 4.42 10^6/uL (4.00-5.40); WHITE BLOOD COUNT 11.7 10^3/uL (4.0-10.0)
[2021-01-14 07:11] LABS: ALBUMIN 2.4 GM/DL (3.2-5.2); ALT/SGPT 14 U/L (12-78); BILIRUBIN,TOTAL 0.4 MG/DL (0.2-1.0); BLOOD UREA NITROGEN 8 MG/DL (7-18); CALCIUM LEVEL 8.7 MG/DL (8.5-10.1); CARBON DIOXIDE LEVEL 26 MEQ/L (21-32); CHLORIDE LEVEL 100 MEQ/L (98-107); CREATININE FOR GFR 0.78 MG/DL (0.55-1.30); GLOMERULAR FILTRATION RATE > 60.0 (>51); GLUCOSE, FASTING 270 MG/DL (70-100); POTASSIUM SERUM 3.7 MEQ/L (3.5-5.1); SODIUM LEVEL 134 MEQ/L (136-145); TOTAL PROTEIN 7.1 GM/DL (6.4-8.2)
[2021-01-14] MEDS: HumaLOG INSULIN (NovoLOG) PER UNIT SC SCH ×4 (08:24→20:48)
[2021-01-14] MEDS: GABAPENTIN 300 MG CAP PO SCH ×3 (08:24→20:48)
[2021-01-14] MEDS: DOCUSATE SODIUM 100MG CAPSULE PO SCH ×2 (08:24→20:48)
[2021-01-14] MEDS: CEFUROXIME 500 MG TAB PO SCH ×2 (08:24→20:48)
[2021-01-14] MEDS: BENZONATATE 100 MG CAP PO SCH ×3 (08:24→20:48)
[2021-01-14] MEDS: APIXABAN 5 MG TAB (ELIQUIS) PO SCH ×2 (08:24→20:47)
[2021-01-14] MEDS: DOXYCYCLINE HYCLATE 100MG TABLET PO SCH ×2 (08:24→20:48)
--- NOTE | 2021-01-14 11:56 | IPNPDOC ---
Text Note Date of Service The patient was seen on 01/14/21. NOTE SUBJECTIVE: -No acute events OBJECTIVE: VITAL SIGNS: please see below General: NAD, comfortable HEENT: PERRLA, EOMI, sclerae clear Neck: supple, normal ROM, no JVD Respiratory: Diminished sounds in posterior L middle lobe, otherwise clear. CVS: RRR, normal S1, S2, no murmurs Abdo: soft, no masses, no hepatosplenomegaly, BS+, no rebound tenderness Extremities: R leg edema 1+. Pulses 2+ bilaterally. Pain to palpation of L ankle MSK: no joint deformities, normal ROM Neuro: no focal neuro deficits, moving all 4 extremities, CN2-12 intact. Strength 5/5 in all 4 extremities. Psych: calm, cooperative, AAO x 3. LABORATORY DATA: Reviewed, stable IMAGING: CTA chest (01/11/21): No acute pulmonary embolic disease. Focal airspace consolidation in the left lower lobe mild associated mucoid impaction. Trace left pleural effusion. Aspiration pneumonia with a parapneumonic effusion is considered. R tib/fib XR: Four views of the right calf demonstrate a right knee arthroplasty in good position. There is an obliquely oriented nondisplaced fracture through the proximal fibular diaphysis. There is diffuse soft tissue swelling in the calf and about the knee. No tibial fracture is appreciated. The proximal fibular fracture is unchanged in position and appearance from the January 05, 2021 study.. No other fracture is seen.. No opaque foreign body noted. IMPRESSION: Nondisplaced acute fracture proximal fibular diaphysis. Right knee arthroplasty components in good position. No other fracture seen.. R ankle XR: Findings are unchanged. There is tibiotalar and fibulotalar spurring. Achilles and plantar calcaneal spurring is noted. There is soft tissue swelling anteriorly and to a lesser extent medially and laterally about the ankle. No definite fracture is appreciated. IMPRESSION: Osteoarthritic changes and heel spurring. No definite fracture. Soft tissue swelling persists. RLE doppler venous US: Right deep veins: Unremarkable. The common femoral, femoral, proximal profunda femoral and popliteal veins are patent without thrombus. Normal Doppler waveforms. Normal compressibility and/or augmentation response. Right superficial veins: Unremarkable. Saphenofemoral junction is patent without thrombus. Soft tissues: Unremarkable. IMPRESSION: No evidence of deep vein thrombosis. R ankle XR: There are degenerative changes seen distal to the distal fibular head and medial malleolus. The mortise is intact. There is no evidence of an acute fracture. MICROBIOLOGY: Please see below. ASSESSMENT: 60 y/o F with PMHx of DM2, HTN, COPD (no home O2), asthma, fibromyalgia, GERD, and recent diagnosis for PE with possible pulmonary infarct on 01/09 as well as an oblique non displaced fracture through proximal fibular diaphysis after a fall on 01/05 who recently left AMA and now readmitted with suspected pneumonia vs parapneumonic effusion 2/2 pulmonary infarct. PLAN: Posterior chest wall pain possibly 2/2 pulmonary infarct vs parepneumonic effusion/pneumonia - CTA with consolidation in L lower lob with mucoid impaction and trace pleural effusion. Concern for pna/parapneumonic effusion with WBC 13.4 and low grade temp 99.4. - ceftin/doxy, day 5 of 7 of CAP antibiotics - blood cultures NGTD, sputum culture negative, f/u legionella and strep pneumo antigens Recent diagnosis of pulmonary embolism - c/w eliquis 10 mg BID x 3 more days, followed by eliquis 5 mg BID - no PE seen on repeat CTA compared to study from 01/09/21 R oblique nondisplaced fracture through the proximal fibular diaphysis - RLE splint detached, got wet in shower - Admitting doc spoke with Dr. Lofton, patient is due for a clinic appt on 01/12/21 in clinic, recommends non weight bearing on R leg--> not adhering. Ortho consulted, Dr. Steele recommended the patient receive a removable ankle brace prior to discharge by physical therapy, however given the fact that she is approaching two weeks without non-weightbearing, she does not require CAM boot or L and U splint at this point in time and ortho will continue to follow this patient in the clinic. - paint control percocet, morphine for breakthrough - PT/OT -ARU screening as PT has not gone very well # DM2 - recent a1c 12.4 - ISS and FSBS AC and HS - hypoglycemic precautions # Left lower lobe nodule - CTA chest showed 5.3 mm nodule in the left lower lobe, neoplastic process cannot be excluded - Will need outpatient follow up # HTN - Cont lisinopril # asthma - Cont diphehydramine, loratadine and montelukast # GERD - Cont omeprazole # Fibromyalgia - Cont gabapentin and quetiapine # nicotine dependence - smoking cessation counseling - nicotine patch ordered Dispo: pending clinical improvement per mobility for safe discharge planning. VS,Fishbone, I+O VS, Fishbone, I+O Laboratory Tests 01/14/21 06:24 Vital Signs Date Time Temp Pulse Resp B/P (MAP) Pulse Ox O2 Delivery O2 Flow Rate FiO2 01/14/21 06:00 97.6 89 16 136/86 (103) 93 Room Air I&O- Last 24 Hours up to 6 AM 01/14/21 06:00 Intake Total 1845 ml Output Total 1125 ml Balance 720 ml MIS FONG MD January 14, 2021 09:29
[2021-01-14 14:00] VITALS: BP 133/80
[2021-01-14] MEDS: MOM 30ML SUSPENSION UDC PO PRN (17:17)
[2021-01-14] MEDS: MONTELUKAST 10 MG TAB PO SCH (20:47)
[2021-01-14] MEDS: LORATADINE 10 MG TAB PO SCH (20:47)
[2021-01-14] MEDS: OMEPRAZOLE 20 MG CAP PO SCH (20:48)
[2021-01-14] MEDS: QUEtiapine FUMARATE 100 MG TAB PO SCH (21:06)
[2021-01-14 22:00] VITALS: BP 128/80
[2021-01-15 05:56] LABS: BASO # 0.1 10^3/uL (0.0-0.2); BASO % 0.8 % (0.0-1.0); EOS # 0.2 10^3/uL (0.0-0.5); EOS % 1.5 % (0.0-3.0); HEMATOCRIT 36.5 % (36.0-47.0); HEMOGLOBIN 11.6 g/dl (12.0-15.5); LYMPH # 2.4 10^3/uL (1.5-5.0); LYMPH % 22.6 % (24.0-44.0); MEAN CORPUSCULAR HEMOGLOBIN 25.7 pg (27.0-33.0); MEAN CORPUSCULAR HGB CONC 31.8 g/dl (32.0-36.5); MEAN CORPUSCULAR VOLUME 80.9 fl (80.0-96.0); MONO # 1.1 10^3/uL (0.0-0.8); MONO % 10.6 % (2.0-8.0); NEUTROPHILS # 6.5 10^3/uL (1.5-8.5); NEUTROPHILS % 61.6 % (36.0-66.0); PLATELET COUNT, AUTOMATED 397 10^3/uL (150-450); RED BLOOD COUNT 4.51 10^6/uL (4.00-5.40); WHITE BLOOD COUNT 10.6 10^3/uL (4.0-10.0)
[2021-01-15 06:00] VITALS: BP 123/76
[2021-01-15 06:22] LABS: ALBUMIN 2.4 GM/DL (3.2-5.2); ALT/SGPT 17 U/L (12-78); BILIRUBIN,TOTAL 0.5 MG/DL (0.2-1.0); BLOOD UREA NITROGEN 8 MG/DL (7-18); CALCIUM LEVEL 9.6 MG/DL (8.5-10.1); CARBON DIOXIDE LEVEL 30 MEQ/L (21-32); CHLORIDE LEVEL 98 MEQ/L (98-107); CREATININE FOR GFR 0.83 MG/DL (0.55-1.30); GLOMERULAR FILTRATION RATE > 60.0 (>51); GLUCOSE, FASTING 299 MG/DL (70-100); MAGNESIUM LEVEL 2.2 MG/DL (1.8-2.4); POTASSIUM SERUM 3.8 MEQ/L (3.5-5.1); SODIUM LEVEL 134 MEQ/L (136-145); TOTAL PROTEIN 7.1 GM/DL (6.4-8.2)
[2021-01-15] MEDS: CEFUROXIME 500 MG TAB PO SCH ×2 (08:09→20:24)
[2021-01-15] MEDS: MOM 30ML SUSPENSION UDC PO PRN (08:09)
[2021-01-15] MEDS: APIXABAN 5 MG TAB (ELIQUIS) PO SCH ×2 (08:09→20:21)
[2021-01-15] MEDS: BENZONATATE 100 MG CAP PO SCH ×3 (08:09→20:22)
[2021-01-15] MEDS: DOCUSATE SODIUM 100MG CAPSULE PO SCH ×2 (08:10→20:22)
[2021-01-15] MEDS: GABAPENTIN 300 MG CAP PO SCH ×3 (08:10→20:21)
[2021-01-15] MEDS: DOXYCYCLINE HYCLATE 100MG TABLET PO SCH ×2 (08:10→20:22)
[2021-01-15] MEDS: HumaLOG INSULIN (NovoLOG) PER UNIT SC SCH ×4 (08:10→20:24)
[2021-01-15] MEDS: PERCOCET 5MG/325MG TAB PO PRN ×3 (08:11→18:13)
[2021-01-15 08:12] VITALS: BP 122/82
[2021-01-15 14:00] VITALS: BP 119/82
--- NOTE | 2021-01-15 16:15 | IPNPDOC ---
Text Note Date of Service The patient was seen on 01/15/21. NOTE SUBJECTIVE: -No acute events -complaining of worsening R knee pain that she did not have prior to her fall. OBJECTIVE: VITAL SIGNS: please see below General: NAD, comfortable HEENT: PERRLA, EOMI, sclerae clear Neck: supple, normal ROM, no JVD Respiratory: Diminished sounds in posterior L middle lobe, otherwise clear. CVS: RRR, normal S1, S2, no murmurs Abdo: soft, no masses, no hepatosplenomegaly, BS+, no rebound tenderness Extremities: R leg edema 1+. Pulses 2+ bilaterally. MSK: no joint deformities, normal ROM Neuro: no focal neuro deficits, moving all 4 extremities, CN2-12 intact. Strength 5/5 in all 4 extremities. Psych: calm, cooperative, AAO x 3. LABORATORY DATA: Reviewed, stable IMAGING: CTA chest (01/11/21): No acute pulmonary embolic disease. Focal airspace consolidation in the left lower lobe mild associated mucoid impaction. Trace left pleural effusion. Aspiration pneumonia with a parapneumonic effusion is considered. R tib/fib XR: Four views of the right calf demonstrate a right knee arthroplasty in good position. There is an obliquely oriented nondisplaced fracture through the proximal fibular diaphysis. There is diffuse soft tissue swelling in the calf and about the knee. No tibial fracture is appreciated. The proximal fibular fracture is unchanged in position and appearance from the January 05, 2021 study.. No other fracture is seen.. No opaque foreign body noted. IMPRESSION: Nondisplaced acute fracture proximal fibular diaphysis. Right knee arthroplasty components in good position. No other fracture seen.. R ankle XR: Findings are unchanged. There is tibiotalar and fibulotalar spurring. Achilles and plantar calcaneal spurring is noted. There is soft tissue swelling anteriorly and to a lesser extent medially and laterally about the ankle. No definite fracture is appreciated. IMPRESSION: Osteoarthritic changes and heel spurring. No definite fracture. Soft tissue swelling persists. RLE doppler venous US: Right deep veins: Unremarkable. The common femoral, femoral, proximal profunda femoral and popliteal veins are patent without thrombus. Normal Doppler waveforms. Normal compressibility and/or augmentation response. Right superficial veins: Unremarkable. Saphenofemoral junction is patent without thrombus. Soft tissues: Unremarkable. IMPRESSION: No evidence of deep vein thrombosis. R ankle XR: There are degenerative changes seen distal to the distal fibular head and medial malleolus. The mortise is intact. There is no evidence of an acute fracture. MICROBIOLOGY: Please see below. ASSESSMENT: 60 y/o F with PMHx of DM2, HTN, COPD (no home O2), asthma, fibromyalgia, GERD, and recent diagnosis for PE with possible pulmonary infarct on 01/09 as well as an oblique non displaced fracture through proximal fibular diaphysis after a fall on 01/05 who recently left AMA and now readmitted with suspected pneumonia vs parapneumonic effusion 2/2 pulmonary infarct. PLAN: Posterior chest wall pain possibly 2/2 pulmonary infarct vs parepneumonic effusion/pneumonia - CTA with consolidation in L lower lob with mucoid impaction and trace pleural effusion. Concern for pna/parapneumonic effusion with WBC 13.4 and low grade temp 99.4. - ceftin/doxy, day 6 of 7 of CAP antibiotics - blood cultures NGTD, sputum culture negative, f/u legionella and strep pneumo antigens -tessalon perls TID for cough Recent diagnosis of pulmonary embolism - c/w eliquis 10 mg BID x 3 more days, followed by eliquis 5 mg BID - no PE seen on repeat CTA compared to study from 01/09/21 R oblique nondisplaced fracture through the proximal fibular diaphysis - RLE splint detached, got wet in shower - Admitting doc spoke with Dr. Lofton, patient is due for a clinic appt on 01/12/21 in clinic, recommends non weight bearing on R leg--> not adhering. Ortho consulted, Dr. Steele recommended the patient receive a removable ankle brace prior to discharge by physical therapy, however given the fact that she is approaching two weeks without non-weightbearing, she does not require CAM boot or L and U splint at this point in time and ortho will continue to follow this patient in the clinic. - paint control percocet, morphine for breakthrough - PT/OT -ARU screening as PT has not gone very well R knee pain: s/p remote knee replacement and the pain began after her fall - will get complete knee XR - will call ortho tomorrow about the pain if persisting # DM2 - recent a1c 12.4 - ISS and FSBS AC and HS - hypoglycemic precautions # Left lower lobe nodule - CTA chest showed 5.3 mm nodule in the left lower lobe, neoplastic process cannot be excluded - Will need outpatient follow up # HTN - Cont lisinopril # asthma - Cont diphehydramine, loratadine and montelukast # GERD - Cont omeprazole # Fibromyalgia - Cont gabapentin and quetiapine # nicotine dependence - smoking cessation counseling - nicotine patch ordered Dispo: pending ARU eval vs. ongoing PT eval for safe discharge planning VS,Fishbone, I+O VS, Fishbone, I+O Laboratory Tests 01/15/21 05:23 Vital Signs Date Time Temp Pulse Resp B/P (MAP) Pulse Ox O2 Delivery O2 Flow Rate FiO2 01/15/21 14:00 98.4 89 16 119/82 (94) 93 Room Air I&O- Last 24 Hours up to 6 AM 01/15/21 06:00 Intake Total 1501 ml Output Total 625 ml Balance 876 ml MIS FONG MD January 15, 2021 16:15
--- NOTE | 2021-01-15 16:57 | REP ---
INDICATION: worsening pain since fall COMPARISON: 01/11/2021 TECHNIQUE: AP, lateral, bilateral oblique views of the right knee FINDINGS: Proximal nondisplaced fibular fracture again noted and essentially unchanged in appearance. Prior knee replacement in satisfactory position without acute process. Lateral view demonstrates suprapatellar effusion. IMPRESSION: 1. Stable appearance of the nondisplaced proximal fibular shaft fracture. 2. Lateral view demonstrates suprapatellar effusion. 3. Degenerative changes with calcified loose bodies and evidence for prior knee replacement. <Electronically signed by Bismark Franklin > 01/15/21 [id number]
[2021-01-15] MEDS: LORATADINE 10 MG TAB PO SCH (20:22)
[2021-01-15] MEDS: MONTELUKAST 10 MG TAB PO SCH (20:22)
[2021-01-15] MEDS: OMEPRAZOLE 20 MG CAP PO SCH (20:22)
[2021-01-15] MEDS: LEVEMIR (INSULIN DETEMIR) 1 UNITS/0.01ML SC SCH (20:23)
[2021-01-15 22:00] VITALS: BP 118/83
[2021-01-15] MEDS: QUEtiapine FUMARATE 100 MG TAB PO SCH (22:44)
[2021-01-16 05:57] LABS: BASO # 0.1 10^3/uL (0.0-0.2); BASO % 0.7 % (0.0-1.0); EOS # 0.2 10^3/uL (0.0-0.5); EOS % 1.4 % (0.0-3.0); HEMATOCRIT 35.7 % (36.0-47.0); HEMOGLOBIN 11.5 g/dl (12.0-15.5); LYMPH # 2.4 10^3/uL (1.5-5.0); LYMPH % 21.9 % (24.0-44.0); MEAN CORPUSCULAR HEMOGLOBIN 25.7 pg (27.0-33.0); MEAN CORPUSCULAR HGB CONC 32.2 g/dl (32.0-36.5); MEAN CORPUSCULAR VOLUME 79.7 fl (80.0-96.0); MONO # 1.1 10^3/uL (0.0-0.8); MONO % 10.2 % (2.0-8.0); NEUTROPHILS % 63.2 % (36.0-66.0); PLATELET COUNT, AUTOMATED 436 10^3/uL (150-450); RED BLOOD COUNT 4.48 10^6/uL (4.00-5.40); WHITE BLOOD COUNT 11.1 10^3/uL (4.0-10.0)
[2021-01-16 06:14] LABS: ALBUMIN 2.5 GM/DL (3.2-5.2); ALT/SGPT 17 U/L (12-78); BILIRUBIN,TOTAL 0.5 MG/DL (0.2-1.0); BLOOD UREA NITROGEN 8 MG/DL (7-18); CALCIUM LEVEL 9.6 MG/DL (8.5-10.1); CARBON DIOXIDE LEVEL 26 MEQ/L (21-32); CHLORIDE LEVEL 99 MEQ/L (98-107); CREATININE FOR GFR 0.71 MG/DL (0.55-1.30); GLOMERULAR FILTRATION RATE > 60.0 (>51); GLUCOSE, FASTING 244 MG/DL (70-100); MAGNESIUM LEVEL 2.3 MG/DL (1.8-2.4); POTASSIUM SERUM 4.2 MEQ/L (3.5-5.1); SODIUM LEVEL 135 MEQ/L (136-145); TOTAL PROTEIN 6.6 GM/DL (6.4-8.2)
[2021-01-16] MEDS: HumaLOG INSULIN (NovoLOG) PER UNIT SC SCH ×4 (09:43→21:26)
[2021-01-16] MEDS: DOXYCYCLINE HYCLATE 100MG TABLET PO SCH (09:43)
[2021-01-16] MEDS: DOCUSATE SODIUM 100MG CAPSULE PO SCH ×2 (09:43→21:22)
[2021-01-16] MEDS: GABAPENTIN 300 MG CAP PO SCH ×3 (09:44→21:22)
[2021-01-16] MEDS: CEFUROXIME 500 MG TAB PO SCH (09:44)
[2021-01-16] MEDS: BENZONATATE 100 MG CAP PO SCH ×3 (09:44→21:22)
[2021-01-16] MEDS: APIXABAN 5 MG TAB (ELIQUIS) PO SCH ×2 (09:44→21:23)
[2021-01-16] MEDS: MIRALAX *UNIT DOSE* 17GM PACKET PO SCH (09:44)
[2021-01-16] MEDS: PERCOCET 5MG/325MG TAB PO PRN ×3 (09:45→21:24)
--- NOTE | 2021-01-16 12:07 | IPNPDOC ---
Text Note Date of Service The patient was seen on 01/16/21. NOTE SUBJECTIVE: -No acute events OBJECTIVE: VITAL SIGNS: please see below General: NAD, comfortable HEENT: PERRLA, EOMI, sclerae clear Neck: supple, normal ROM, no JVD Respiratory: Diminished sounds in posterior L middle lobe, otherwise clear. CVS: RRR, normal S1, S2, no murmurs Abdo: soft, no masses, no hepatosplenomegaly, BS+, no rebound tenderness Extremities: R leg edema 1+. Pulses 2+ bilaterally. MSK: no joint deformities, normal ROM Neuro: no focal neuro deficits, moving all 4 extremities, CN2-12 intact. Strength 5/5 in all 4 extremities. Psych: calm, cooperative, AAO x 3. LABORATORY DATA: Reviewed, stable IMAGING: CTA chest (01/11/21): No acute pulmonary embolic disease. Focal airspace consolidation in the left lower lobe mild associated mucoid impaction. Trace left pleural effusion. Aspiration pneumonia with a parapneumonic effusion is considered. R tib/fib XR: Four views of the right calf demonstrate a right knee arthroplasty in good position. There is an obliquely oriented nondisplaced fracture through the proximal fibular diaphysis. There is diffuse soft tissue swelling in the calf and about the knee. No tibial fracture is appreciated. The proximal fibular fracture is unchanged in position and appearance from the January 05, 2021 study.. No other fracture is seen.. No opaque foreign body noted. IMPRESSION: Nondisplaced acute fracture proximal fibular diaphysis. Right knee arthroplasty components in good position. No other fracture seen.. R ankle XR: Findings are unchanged. There is tibiotalar and fibulotalar spurring. Achilles and plantar calcaneal spurring is noted. There is soft tissue swelling anteriorly and to a lesser extent medially and laterally about the ankle. No definite fracture is appreciated. IMPRESSION: Osteoarthritic changes and heel spurring. No definite fracture. Soft tissue swelling persists. RLE doppler venous US: Right deep veins: Unremarkable. The common femoral, femoral, proximal profunda femoral and popliteal veins are patent without thrombus. Normal Doppler waveforms. Normal compressibility and/or augmentation response. Right superficial veins: Unremarkable. Saphenofemoral junction is patent without thrombus. Soft tissues: Unremarkable. IMPRESSION: No evidence of deep vein thrombosis. R ankle XR: There are degenerative changes seen distal to the distal fibular head and medial malleolus. The mortise is intact. There is no evidence of an acute fracture. R knee XR: Proximal nondisplaced fibular fracture again noted and essentially unchanged in appearance. Prior knee replacement in satisfactory position without acute process. Lateral view demonstrates suprapatellar effusion. IMPRESSION: 1. Stable appearance of the nondisplaced proximal fibular shaft fracture. 2. Lateral view demonstrates suprapatellar effusion. 3. Degenerative changes with calcified loose bodies and evidence for prior knee replacement. MICROBIOLOGY: Please see below. ASSESSMENT: 60 y/o F with PMHx of DM2, HTN, COPD (no home O2), asthma, fibromyalgia, GERD, and recent diagnosis for PE with possible pulmonary infarct on 01/09 as well as an oblique non displaced fracture through proximal fibular diaphysis after a fall on 01/05 who recently left AMA and now readmitted with suspected pneumonia vs parapneumonic effusion 2/2 pulmonary infarct. PLAN: Posterior chest wall pain possibly 2/2 pulmonary infarct vs parepneumonic effusion/pneumonia - CTA with consolidation in L lower lob with mucoid impaction and trace pleural effusion. Concern for pna/parapneumonic effusion with WBC 13.4 and low grade temp 99.4. - ceftin/doxy, day 7 of 7 of CAP antibiotics - blood cultures NGTD, sputum culture negative, f/u legionella and strep pneumo antigens -tessalon perls TID for cough Recent diagnosis of pulmonary embolism - c/w eliquis 10 mg BID x 7 days, to begin eliquis 5 mg BID tomorrow - no PE seen on repeat CTA compared to study from 01/09/21 R oblique nondisplaced fracture through the proximal fibular diaphysis - RLE splint detached, got wet in shower - Admitting doc spoke with Dr. Lofton, patient is due for a clinic appt on 01/12/21 in clinic, recommends non weight bearing on R leg--> not adhering. Ortho consulted, Dr. Steele recommended the patient receive a removable ankle brace prior to discharge by physical therapy, however given the fact that she is approaching two weeks without non-weightbearing, she does not require CAM boot or L and U splint at this point in time and ortho will continue to follow this patient in the clinic. - paint control percocet, morphine for breakthrough - PT/OT R knee pain: s/p remote knee replacement and the pain began after her fall - will get complete knee XR - will call ortho tomorrow about the pain if persisting # DM2 - recent a1c 12.4 - ISS and FSBS AC and HS - hypoglycemic precautions # Left lower lobe nodule - CTA chest showed 5.3 mm nodule in the left lower lobe, neoplastic process cannot be excluded - Will need outpatient follow up # HTN - Cont lisinopril # asthma - Cont diphehydramine, loratadine and montelukast # GERD - Cont omeprazole # Fibromyalgia - Cont gabapentin and quetiapine # nicotine dependence - smoking cessation counseling - nicotine patch ordered Dispo: pending PT eval for safe discharge planning VS,Sophy, I+O VS, Sophy, I+O Laboratory Tests 01/16/21 05:17 Vital Signs Date Time Temp Pulse Resp B/P (MAP) Pulse Ox O2 Delivery O2 Flow Rate FiO2 01/15/21 22:00 97.8 89 16 118/83 (95) 92 Room Air I&O- Last 24 Hours up to 6 AM 01/16/21 06:00 Intake Total 1440 ml Output Total 1100 ml Balance 340 ml MIS FONG MD January 16, 2021 08:35
[2021-01-16 13:11] LABS: BODY FLUID CULTURE Not indicated. (.); ORGANISM ID Not indicated. (.); SPECIMEN SOURCE Urine (.); URINE STREP PNEUMONIAE ANTIGEN Negative (Negative)
[2021-01-16] MEDS: LORATADINE 10 MG TAB PO SCH (21:22)
[2021-01-16] MEDS: OMEPRAZOLE 20 MG CAP PO SCH (21:23)
[2021-01-16] MEDS: MONTELUKAST 10 MG TAB PO SCH (21:23)
[2021-01-16] MEDS: LEVEMIR (INSULIN DETEMIR) 1 UNITS/0.01ML SC SCH (21:25)
[2021-01-16 22:00] VITALS: BP 121/70
[2021-01-17] MEDS: QUEtiapine FUMARATE 100 MG TAB PO SCH (00:55)
[2021-01-17] MEDS: PERCOCET 5MG/325MG TAB PO PRN ×2 (03:23→09:58)
[2021-01-17 06:00] VITALS: BP 120/77
[2021-01-17 06:25] LABS: BASO # 0.1 10^3/uL (0.0-0.2); BASO % 0.6 % (0.0-1.0); EOS # 0.2 10^3/uL (0.0-0.5); EOS % 1.5 % (0.0-3.0); HEMATOCRIT 34.7 % (36.0-47.0); HEMOGLOBIN 10.9 g/dl (12.0-15.5); LYMPH # 2.7 10^3/uL (1.5-5.0); LYMPH % 24.1 % (24.0-44.0); MEAN CORPUSCULAR HEMOGLOBIN 25.1 pg (27.0-33.0); MEAN CORPUSCULAR HGB CONC 31.4 g/dl (32.0-36.5); MEAN CORPUSCULAR VOLUME 79.8 fl (80.0-96.0); MONO # 1.1 10^3/uL (0.0-0.8); MONO % 9.5 % (2.0-8.0); NEUTROPHILS % 61.5 % (36.0-66.0); PLATELET COUNT, AUTOMATED 456 10^3/uL (150-450); RED BLOOD COUNT 4.35 10^6/uL (4.00-5.40); WHITE BLOOD COUNT 11.4 10^3/uL (4.0-10.0)
[2021-01-17 06:52] LABS: ALBUMIN 2.3 GM/DL (3.2-5.2); ALT/SGPT 17 U/L (12-78); BILIRUBIN,TOTAL 0.3 MG/DL (0.2-1.0); BLOOD UREA NITROGEN 9 MG/DL (7-18); CALCIUM LEVEL 8.6 MG/DL (8.5-10.1); CARBON DIOXIDE LEVEL 25 MEQ/L (21-32); CHLORIDE LEVEL 101 MEQ/L (98-107); CREATININE FOR GFR 0.72 MG/DL (0.55-1.30); GLOMERULAR FILTRATION RATE > 60.0 (>51); GLUCOSE, FASTING 274 MG/DL (70-100); MAGNESIUM LEVEL 2.4 MG/DL (1.8-2.4); POTASSIUM SERUM 4.2 MEQ/L (3.5-5.1); SODIUM LEVEL 135 MEQ/L (136-145); TOTAL PROTEIN 6.3 GM/DL (6.4-8.2)
[2021-01-17] MEDS: MIRALAX *UNIT DOSE* 17GM PACKET PO SCH (09:58)
[2021-01-17] MEDS: APIXABAN 5 MG TAB (ELIQUIS) PO SCH (09:58)
[2021-01-17] MEDS: GABAPENTIN 300 MG CAP PO SCH (09:58)
[2021-01-17] MEDS: DOCUSATE SODIUM 100MG CAPSULE PO SCH (09:58)
[2021-01-17] MEDS: BENZONATATE 100 MG CAP PO SCH (09:59)
[2021-01-17] MEDS: HumaLOG INSULIN (NovoLOG) PER UNIT SC SCH ×2 (09:59→12:54)
[2021-01-17] MEDS ORDERED: ELIQ5TAB PO ×2 (11:29→11:32)
[2021-01-17] MEDS ORDERED: ACET1TAB55 PO (11:37)
[2021-01-17] MEDS ORDERED: PERCOCET PO (11:37)
[2021-01-17] MEDS ORDERED: BENZ-18 PO (11:37)
--- NOTE | 2021-01-20 12:14 | DS.PDOC ---
Discharge Summary General Date of Admission Jan 11, 2021 at 05:36 Date of Discharge 01/17/21 Discharge Summary PROCEDURES PERFORMED DURING STAY: None DISCHARGE DIAGNOSES: CAP Recent diagnosis of PE/ pulmonary infarct prior to this admission Known recent oblique non displaced fracture through proximal fibular diaphysis after a fall on 01/05 DM2 HTN COPD (no home O2) Asthma Fibromyalgia GERD COMPLICATIONS/CHIEF COMPLAINT: Pneumonia, Pulmonary Infarct. HISTORY OF PRESENT ILLNESS: 60 y/o F with PMHx of DM2, HTN, COPD (no home O2), asthma, fibromyalgia, GERD, and recent diagnosis for PE (on eliquis) with possible pulmonary infarct on 01/09 as well as an oblique non displaced fracture through proximal fibular diaphysis after a fall on 01/05 who left AMA on 01/09 and returned on 01/11 with worsening cough, SOB and L posterior chest wall pain worse on inspiration. In addition, patient stated that she had showered with her splint which since came off. HOSPITAL COURSE: In the ED, she had a CTA chest that did not show presence of a PE but did indicate L lower lobe consolidation with mild mucoid impaction, concern for aspiration pneumonia and a pleural effusion.She did have a low grade temp and leukocytosis to 13.4. Blood cultures were ultimately negative and so was the sputum culture. She was treated with empiric ceftriaxone and azithromycin then doxy and then transitioned to complete a 7d course with PO ceftin/doxy. She was continued on eliquis and is now being transitioned to 5mg BID after a week of 10 BID ending 01/16/2021. She continued to have ambulation problems with R ankle pain and R knee pain with stable XRs and was seen by orthopedics that ultimately recommended PT/OT with non weight bearing status on the right. She worked with PT in hospital and was able to maintain NWB status on the right with a walker. She was able to negotiate stair in sitting position. It was felt she was safe to be discharged home with home services. DISCHARGE MEDICATIONS: Please see below. ALLERGIES: Please see below. PHYSICAL EXAMINATION ON DISCHARGE: VITAL SIGNS: Please see below. General: NAD, comfortable HEENT: PERRLA, EOMI, sclerae clear Neck: supple, normal ROM, no JVD Respiratory: Diminished sounds in posterior L middle lobe, otherwise clear. CVS: RRR, normal S1, S2, no murmurs Abdo: soft, no masses, no hepatosplenomegaly, BS+, no rebound tenderness Extremities: R leg edema 1+. Pulses 2+ bilaterally. MSK: no joint deformities, normal ROM with R ankle pain on adduction flexion and extension. Neuro: no focal neuro deficits, moving all 4 extremities, CN2-12 intact. Strength 5/5 in all 4 extremities. Psych: calm, cooperative, AAO x 3. LABORATORY DATA: Please see below IMAGING: CTA chest (01/11/21): No acute pulmonary embolic disease. Focal airspace consolidation in the left lower lobe mild associated mucoid impaction. Trace left pleural effusion. Aspiration pneumonia with a parapneumonic effusion is considered. R tib/fib XR: Four views of the right calf demonstrate a right knee arthroplasty in good position. There is an obliquely oriented nondisplaced fracture through the proximal fibular diaphysis. There is diffuse soft tissue swelling in the calf and about the knee. No tibial fracture is appreciated. The proximal fibular fracture is unchanged in position and appearance from the January 05, 2021 study.. No other fracture is seen.. No opaque foreign body noted. IMPRESSION: Nondisplaced acute fracture proximal fibular diaphysis. Right knee arthroplasty components in good position. No other fracture seen.. R ankle XR: Findings are unchanged. There is tibiotalar and fibulotalar spurring. Achilles and plantar calcaneal spurring is noted. There is soft tissue swelling anteriorly and to a lesser extent medially and laterally about the ankle. No definite fracture is appreciated. IMPRESSION: Osteoarthritic changes and heel spurring. No definite fracture. Soft tissue swelling persists. RLE doppler venous US: Right deep veins: Unremarkable. The common femoral, femoral, proximal profunda femoral and popliteal veins are patent without thrombus. Normal Doppler waveforms. Normal compressibility and/or augmentation response. Right superficial veins: Unremarkable. Saphenofemoral junction is patent without thrombus. Soft tissues: Unremarkable. IMPRESSION: No evidence of deep vein thrombosis. R ankle XR: There are degenerative changes seen distal to the distal fibular head and medial malleolus. The mortise is intact. There is no evidence of an acute fracture. R knee XR: Proximal nondisplaced fibular fracture again noted and essentially unchanged in appearance. Prior knee replacement in satisfactory position without acute process. Lateral view demonstrates suprapatellar effusion. IMPRESSION: 1. Stable appearance of the nondisplaced proximal fibular shaft fracture. 2. Lateral view demonstrates suprapatellar effusion. 3. Degenerative changes with calcified loose bodies and evidence for prior knee replacement. ACTIVITY: Non weight bearing on the right. DIET: Regular DISPOSITION: Home with services FOLLOWUP ON OUTPATIENT: Fracture follow up with orthopedics PCP follow up for CAP resolution PCP follow up for PE DISCHARGE CONDITION: Stable TIME SPENT ON DISCHARGE: 35 minutes. Vital Signs/I&Os Vital Signs Date Time Temp Pulse Resp B/P (MAP) Pulse Ox O2 Delivery O2 Flow Rate FiO2 01/17/21 10:28 18 Room Air 01/17/21 06:00 98.9 88 120/77 (91) 94 Microbiology Microbiology 01/12/21 Gram Stain - Final, Complete 01/12/21 Sputum Culture - Final, Complete 01/11/21 Blood Culture - Final, Complete NO GROWTH AFTER 5 DAYS 01/11/21 Blood Culture - Final, Complete NO GROWTH AFTER 5 DAYS Discharge Medications Scheduled Apixaban (Eliquis) 5 Mg Tablet, 5 MG PO BID Gabapentin (Gabapentin) 600 Mg Tab, 600 MG PO TID, (Reported) Loratadine (Loratadine) 10 Mg Tablet, 10 MG PO QHS, (Reported) Metformin HCl (Metformin HCl) 500 Mg Tablet, 500 MG PO QHS, (Reported) Montelukast Sodium (Singulair) 10 Mg Tab, 10 MG PO QHS, (Reported) Omeprazole (Omeprazole) 40 Mg Cap, 40 MG PO QHS, (Reported) Quetiapine Fumarate (Seroquel) 300 Mg Tab, 300 MG PO QHS, (Reported) Scheduled PRN Acetaminophen (Acetaminophen) 325 Mg Tablet, 650 MG PO Q6HP PRN for MILD PAIN (PS 1-4) Albuterol Sulfate (Proair Hfa) 8.5 Gm Hfa.aer.ad, 2 PUFF INH Q4H PRN for SHORTNESS OF BREATH, (Reported) Benzonatate (Benzonatate) 100 Mg Capsule, 100 MG PO TIDP PRN for COUGH Diphenhydramine HCl (Diphenhydramine HCl) 25 Mg Capsule, 25 MG PO Q6H PRN for ITCHING, (Reported) Nystatin (Nystatin) 15 Gm Cream..g., 1 DOSE EXT BID PRN for RASH, (Reported) APPLY UNDER BREASTS AND GROIN Oxycodone/Acetaminophen (Oxycodone-Acetaminophen 5-325) 1 Each Tablet, 1 TAB PO Q6HP PRN for MODERATE/SEVERE PAIN (PS 5-10) Allergies Coded Allergies: Penicillins (Verified Allergy, Unknown, rash, 01/09/21) codeine (Verified Allergy, Unknown, itching, 01/09/21) baclofen (Verified Adverse Reaction, Unknown, vomiting, 01/09/21) CHITRA CARREON MD January 20, 2021 12:14
== END 2021-01-17 14:20 | disposition home health service (06) | DRG 139 ==
LOC: M ED 01:27 → M ED INP 05:36 → ENRESERV 06:25 → M MSPAV 08:13
PROVIDERS: ADMIT Family Medicine; ATTEND Internal Medicine Nephrology
DX: J18.9 Pneumonia, unspecified organism (principal); I26.99 Other pulmonary embolism without acute cor pulmonale; J90 Pleural effusion, not elsewhere classified; J44.9 Chronic obstructive pulmonary disease, unspecified; E11.9 Type 2 diabetes mellitus without complications; I10 Essential (primary) hypertension; J45.909 Unspecified asthma, uncomplicated; K21.9 Gastro-esophageal reflux disease without esophagitis; M79.7 Fibromyalgia; Z96.652 Presence of left artificial knee joint; F17.200 Nicotine dependence, unspecified, uncomplicated; R91.1 Solitary pulmonary nodule; Z79.899 Other long term (current) drug therapy; Z88.0 Allergy status to penicillin; Z88.5 Allergy status to narcotic agent; Z88.8 Allergy status to other drugs, medicaments and biological substances

== ENCOUNTER 2022-02-11 21:48 | Emergency (ER) | payer OTHER ==
[~2022-02-11] VITALS: Ht 157.5 cm; Wt 84.9 kg
[~2022-02-11 21:48] MED LIST changes: +ACET1TAB55 PO; +ALCOPAD25 TOP; +ASPI81CH33 PO; +ATOR80TA59 PO; +BASA100I SC; +BENZ-18 PO; +BLOOKIT21 XX; +CARV3.12 PO; -CLIN150C15 PO; +CLIN150C17 PO; +COLA100C5 PO; +DOXY-443 PO; -DOXY100C37 PO; +ERGO500029 PO; +FAMO20TA5 PO; +GLUC1TES2 XX; +LANC30MI XX; +LEVE1INJ5 SC; +LISI2.5T9 PO; +MIRA1POW3 PO; +NYST10CR EXT; +OMEP40CA4 PO; -OMEP40CA97 PO; +PEN1MIS22 SC; +PERCOCET PO; +PROAAER10 INH
[2022-02-11 22:02] VITALS: BP 164/72
[2022-02-11 23:27] LABS: BASO # 0.1 10^3/uL (0.0-0.2); BASO % 0.5 % (0.0-1.0); EOS # 0.1 10^3/uL (0.0-0.5); EOS % 0.8 % (0.0-3.0); HEMATOCRIT 43.4 % (36.0-47.0); LYMPH # 2.1 10^3/uL (1.5-5.0); LYMPH % 18.7 % (24.0-44.0); MEAN CORPUSCULAR HEMOGLOBIN 25.5 pg (27.0-33.0); MEAN CORPUSCULAR HGB CONC 32.3 g/dl (32.0-36.5); MEAN CORPUSCULAR VOLUME 79.1 fl (80.0-96.0); MONO # 0.8 10^3/uL (0.0-0.8); MONO % 7.3 % (2.0-8.0); NEUTROPHILS % 72.2 % (36.0-66.0); PLATELET COUNT, AUTOMATED 297 10^3/uL (150-450); RED BLOOD COUNT 5.49 10^6/uL (4.00-5.40)
[2022-02-12 00:07] LABS: ALBUMIN 3.3 GM/DL (3.2-5.2); ALT/SGPT 16 U/L (12-78); BILIRUBIN,DIRECT 0.1 MG/DL (0.0-0.2); BILIRUBIN,TOTAL 0.3 MG/DL (0.2-1.0); BLOOD UREA NITROGEN 8 MG/DL (7-18); CALCIUM LEVEL 8.9 MG/DL (8.5-10.1); CARBON DIOXIDE LEVEL 21 MEQ/L (21-32); CHLORIDE LEVEL 107 MEQ/L (98-107); CREATININE FOR GFR 0.92 MG/DL (0.55-1.30); GLOMERULAR FILTRATION RATE > 60.0 (>51); GLUCOSE, FASTING 478 MG/DL (70-100); LIPASE 173 U/L (73-393); POTASSIUM SERUM 3.7 MEQ/L (3.5-5.1); SODIUM LEVEL 137 MEQ/L (136-145); TOTAL PROTEIN 7.1 GM/DL (6.4-8.2)
[2022-02-12] MEDS ORDERED: HumuLIN R (REGULAR) INSULIN (NovoLIN R) **100U/ML** PER UNIT IV ONE (01:45)
== END 2022-02-12 01:49 | disposition left against medical advice (07) ==
LOC: M ED 21:48
DX: Z53.21 Procedure and treatment not carried out due to patient leaving prior to being seen by health care provider (principal)

== ENCOUNTER → 2022-08-17 | Outpatient (CLI) | payer OTHER ==
[~2022-08-17] MED LIST changes: +NYST-13 EXT; -NYST10CR EXT
[2022-08-17 13:22] LABS: HEMATOCRIT 42.3 % (36.0-47.0); HEMOGLOBIN 13.4 g/dl (12.0-15.5); MEAN CORPUSCULAR HEMOGLOBIN 25.9 pg (27.0-33.0); MEAN CORPUSCULAR HGB CONC 31.7 g/dl (32.0-36.5); MEAN CORPUSCULAR VOLUME 81.8 fl (80.0-96.0); PLATELET COUNT, AUTOMATED 245 10^3/uL (150-450); RED BLOOD COUNT 5.17 10^6/uL (4.00-5.40); WHITE BLOOD COUNT 7.7 10^3/uL (4.0-10.0)
[2022-08-17 14:10] LABS: ALBUMIN 3.3 G/DL (3.2-5.2); ALKALINE PHOSPHATASE 101 U/L (46-116); ALT/SGPT 11 U/L (7.0-40); AST/SGOT 14 U/L (<34); BILIRUBIN,TOTAL 0.3 MG/DL (0.3-1.2); BLOOD UREA NITROGEN 11 MG/DL (9-23); CALCIUM LEVEL 8.5 MG/DL (8.5-10.1); CARBON DIOXIDE LEVEL 24 MMOL/L (20-31); CHLORIDE LEVEL 104 MMOL/L (98-107); CHOLESTEROL LEVEL 271 MG/DL (<200); CHOLESTEROL RISK RATIO 9.09 (<5); GLOMERULAR FILTRATION RATE > 60.0 (>51); GLUCOSE, FASTING 210 MG/DL (60-100); HDL CHOLESTEROL 29.8 MG/DL (>40); LDL CHOLESTEROL 162.2 MG/DL (<100); NON-HDL-C 241 MG/DL; POTASSIUM SERUM 3.3 MMOL/L (3.5-5.1); SODIUM LEVEL 139 MMOL/L (136-145); TOTAL PROTEIN 6.5 G/DL (5.7-8.2); TRIGLYCERIDES LEVEL 395 MG/DL (<150)
[2022-08-17 14:45] LABS: HEMOGLOBIN A1c 10.2 % (4.0-6.0)
[2022-08-17 19:39] LABS: CREATININE, URINE 22.8 MG/DL; MAU/CREAT RATIO 293.8 MCG/MG (0.0-30.0)
== END ==
LOC: M RAD 11:40
PROVIDERS: ATTEND Physician Assistant
DX: E11.65 Type 2 diabetes mellitus with hyperglycemia (principal); J44.9 Chronic obstructive pulmonary disease, unspecified; F17.210 Nicotine dependence, cigarettes, uncomplicated; I25.119 Atherosclerotic heart disease of native coronary artery with unspecified angina pectoris; R94.31 Abnormal electrocardiogram [ECG] [EKG]

== ENCOUNTER → 2022-11-27 | Outpatient (CLI) | payer OTHER ==
[~2022-11-27] MED LIST changes: +DIPH-435 PO; -DIPH25CA32 PO; +INSU100I6 SC; -LEVE1INJ5 SC; +MONT-5 PO; -SING10TA32 PO
[2022-11-27 16:43] LABS: HEMATOCRIT 42.4 % (36.0-47.0); HEMOGLOBIN 13.3 g/dl (12.0-15.5); MEAN CORPUSCULAR HEMOGLOBIN 25.4 pg (27.0-33.0); MEAN CORPUSCULAR HGB CONC 31.4 g/dl (32.0-36.5); MEAN CORPUSCULAR VOLUME 81.1 fl (80.0-96.0); PLATELET COUNT, AUTOMATED 288 10^3/uL (150-450); RED BLOOD COUNT 5.23 10^6/uL (4.00-5.40)
[2022-11-27 17:11] LABS: ALBUMIN 3.3 G/DL (3.2-5.2); ALKALINE PHOSPHATASE 100 U/L (46-116); ALT/SGPT 10 U/L (7.0-40); AST/SGOT 9 U/L (<34); BILIRUBIN,TOTAL 0.3 MG/DL (0.3-1.2); BLOOD UREA NITROGEN 16 MG/DL (9-23); CALCIUM LEVEL 9.1 MG/DL (8.3-10.6); CARBON DIOXIDE LEVEL 23 MMOL/L (20-31); CHLORIDE LEVEL 107 MMOL/L (98-107); CREATININE FOR GFR 0.65 MG/DL (0.55-1.30); GLOMERULAR FILTRATION RATE > 60.0 (>45); GLUCOSE, FASTING 192 MG/DL (74-106); POTASSIUM SERUM 4.1 MMOL/L (3.5-5.1); SODIUM LEVEL 137 MMOL/L (136-145); TOTAL PROTEIN 6.3 G/DL (5.7-8.2)
[2022-11-27 17:16] LABS: TOTAL 25(OH) VITAMIN D 13.1 NG/ML (20.0-100.0)
[2022-11-27 17:48] LABS: HEPATITIS C VIRUS ABY INDEX < 0.0 INDEX (<0.8)
== END ==
LOC: M LAB 15:46
PROVIDERS: ATTEND Physician Assistant
DX: E55.9 Vitamin D deficiency, unspecified (principal); Z11.59 Encounter for screening for other viral diseases; E11.65 Type 2 diabetes mellitus with hyperglycemia

== ENCOUNTER 2023-08-14 11:10 | Emergency (ER) | payer OTHER ==
[~2023-08-14] VITALS: Ht 157.5 cm; Wt 83.6 kg
[~2023-08-14 11:10] MED LIST changes: +LORA-1041 PO; -LORA-674 PO
[2023-08-14] MEDS ORDERED: IBUPROFEN 600MG TAB PO ONE (13:15)
[2023-08-14] MEDS ORDERED: MORPHINE 4 MG/ML 1ML VIAL IV ONE (13:15)
[2023-08-14] MEDS ORDERED: diazePAM 5MG TABLET PO ONE (15:05)
[2023-08-14] MEDS ORDERED: TRAM50TA2 PO (19:39)
[2023-08-14] MEDS ORDERED: IBUP-1022 PO (19:39)
[2023-08-14] MEDS ORDERED: traMADol 50 MG TAB (HOME DOSE PACK) PO ONE (20:00)
[2023-08-14 20:10] VITALS: BP 129/65; TEMP 98.1; O2SAT 98
== END 2023-08-14 20:15 | disposition home or self-care (01) ==
LOC: M ED 11:10 → EDBD 11:10 → M ED 20:15
DX: S63.502A Unspecified sprain of left wrist, initial encounter (principal); W22.8XXA Striking against or struck by other objects, initial encounter; Y92.009 Unspecified place in unspecified non-institutional (private) residence as the place of occurrence of the external cause; Y93.89 Activity, other specified; Y99.8 Other external cause status; E11.9 Type 2 diabetes mellitus without complications; F17.200 Nicotine dependence, unspecified, uncomplicated; Z88.0 Allergy status to penicillin; Z88.5 Allergy status to narcotic agent; Z88.8 Allergy status to other drugs, medicaments and biological substances; Z79.899 Other long term (current) drug therapy; Z79.4 Long term (current) use of insulin; Z79.84 Long term (current) use of oral hypoglycemic drugs; Z79.82 Long term (current) use of aspirin

== ENCOUNTER 2023-09-14 15:22 | Emergency (ER) | payer MEDICAID, OTHER, SELFPAY ==
[~2023-09-14] VITALS: Ht 157.5 cm; Wt 81.1 kg
[~2023-09-14 15:22] MED LIST changes: +IBUP-1022 PO
[2023-09-14] MEDS ORDERED: FLUO40CA (15:49)
[2023-09-14] MEDS ORDERED: NITR0.4S14 (15:49)
[2023-09-14] MEDS ORDERED: LIDOCAINE 4% CREAM 5GM (LMX4) TOP ONE (19:15)
[2023-09-14] MEDS ORDERED: MORPHINE 10 MG/ML 1ML VIAL IM ONE (19:15)
[2023-09-14 19:42] LABS: BASO % 0.2 % (0.0-1.0); EOS % 0.1 % (0.0-3.0); HEMATOCRIT 40.9 % (36.0-47.0); HEMOGLOBIN 13.4 g/dl (12.0-15.5); LYMPH # 1.8 10^3/uL (1.5-5.0); LYMPH % 12.7 % (24.0-44.0); MEAN CORPUSCULAR HEMOGLOBIN 25.9 pg (27.0-33.0); MEAN CORPUSCULAR HGB CONC 32.8 g/dl (32.0-36.5); MONO # 1.2 10^3/uL (0.0-0.8); MONO % 8.1 % (2.0-8.0); NEUTROPHILS % 78.1 % (36.0-66.0); PLATELET COUNT, AUTOMATED 288 10^3/uL (150-450); RED BLOOD COUNT 5.18 10^6/uL (4.00-5.40); WHITE BLOOD COUNT 14.1 10^3/uL (4.0-10.0)
[2023-09-14 19:49] LABS: ERYTHROCYTE SEDIMENTATION RATE 101 mm/hr (0-30)
[2023-09-14 20:02] LABS: URIC ACID 2.1 MG/DL (3.1-7.8)
[2023-09-14 20:05] LABS: BLOOD UREA NITROGEN 12 MG/DL (9-23); CARBON DIOXIDE LEVEL 20 MMOL/L (20-31); CHLORIDE LEVEL 111 MMOL/L (98-107); CREATININE FOR GFR 0.69 MG/DL (0.55-1.30); GLOMERULAR FILTRATION RATE > 60.0 (>45); GLUCOSE, FASTING 154 MG/DL (74-106); POTASSIUM SERUM 3.6 MMOL/L (3.5-5.1); SODIUM LEVEL 139 MMOL/L (136-145)
[2023-09-14] MEDS ORDERED: methylPREDNISolone 125MG 2ML VIAL IM ONE (21:05)
[2023-09-14] MEDS ORDERED: ANEC4CRE3 TOP (21:33)
[2023-09-14] MEDS ORDERED: PRED20TA PO (21:33)
[2023-09-14 21:42] VITALS: BP 133/64; TEMP 98.1; O2SAT 97
== END 2023-09-14 21:55 | disposition home or self-care (01) ==
LOC: M ED 15:22
DX: M25.532 Pain in left wrist (principal); M25.432 Effusion, left wrist; M79.7 Fibromyalgia; J44.9 Chronic obstructive pulmonary disease, unspecified; I10 Essential (primary) hypertension; I25.2 Old myocardial infarction; E11.9 Type 2 diabetes mellitus without complications; Z88.0 Allergy status to penicillin; Z88.5 Allergy status to narcotic agent; Z79.84 Long term (current) use of oral hypoglycemic drugs; Z79.82 Long term (current) use of aspirin; Z79.02 Long term (current) use of antithrombotics/antiplatelets; Z79.811 Long term (current) use of aromatase inhibitors; Z79.899 Other long term (current) drug therapy
CPT/HCPCS: 80048; 83605; 84550; 85025; 85652; 86140; 87040; 96372; 99284; J2930

== ENCOUNTER → 2024-07-21 | Outpatient (REF) | payer OTHER ==
[~2024-07-21] MED LIST changes: +ANEC4CRE3 TOP; -CYCL5TAB PO; +CYCL5TAB4 PO; +DOXY-441 PO; -DOXY-443 PO; +FLUO40CA; +GABA-1490 PO; -GABA600T4 PO; -MIRA1POW3 PO; +MIRA33506 PO; +NITR0.4S14
== END ==
LOC: M LAB REF 20:59
PROVIDERS: ATTEND Physician Assistant Medical
DX: R05.9 Cough, unspecified (principal)

== ENCOUNTER 2025-05-28 18:02 | Emergency (ER) | payer OTHER ==
[~2025-05-28] VITALS: Ht 157.5 cm; Wt 77.7 kg
[~2025-05-28 18:02] MED LIST changes: +AMIT10TA11 PO; -AMIT10TA7 PO; -IBUP-1022 PO; +IBUP600T42 PO; -NYST-13 EXT; +NYST0.1C EXT
[2025-05-28 20:01] LABS: VENOUS BASE EXCESS -3.5 (-2.0-2.0); VENOUS HCO3 20.0 MMOL/L (23.0-27.0); VENOUS O2 SATURATION 97.5 % (60.0-80.0); VENOUS PARTIAL PRESSURE CO2 32.4 mmHg (38.0-50.0); VENOUS PARTIAL PRESSURE O2 94.0 mmHg (30.0-50.0); VENOUS PH 7.408 UNITS (7.330-7.430); VENOUS STANDARD HCO3 21.6 MMOL/L; VENOUS TOTAL CO2 21.0 MMOL/L (24.0-28.0)
[2025-05-28 20:08] LABS: KETONE, URINE AUTO RFX 1+ mg/dL (NEGATIVE); LEUKOCYTE ESTERASE UR AUTO RFX NEGATIVE (NEGATIVE); MUCUS, URINE RFX SMALL (NEGATIVE); RBC, URINE AUTO RFX 6 /HPF (0-3); SQUAM EPITHELIAL CELL UR AURFX 3 /HPF (0-6)
[2025-05-28 20:09] LABS: NITRITE, URINE AUTO RFX POSITIVE (NEGATIVE); WBC, URINE AUTO RFX 23 /HPF (0-3)
[2025-05-28 20:10] LABS: BASO # 0.1 10^3/uL (0.0-0.2); BASO % 0.6 % (0.0-1.0); EOS # 0.0 10^3/uL (0.0-0.5); EOS % 0.3 % (0.0-3.0); LYMPH # 2.7 10^3/uL (1.5-5.0); LYMPH % 19.8 % (24.0-44.0); MONO # 1.0 10^3/uL (0.0-0.8); MONO % 7.3 % (2.0-8.0); NEUTROPHILS # 9.6 10^3/uL (1.5-8.5); NEUTROPHILS % 71.3 % (36.0-66.0); PLATELET COUNT, AUTOMATED 316 10^3/uL (150-450)
[2025-05-28 20:17] LABS: ERYTHROCYTE SEDIMENTATION RATE 91 mm/hr (0-30)
[2025-05-28 20:28] LABS: OSMOLALITY SERUM 303 MOSM/KG (280-301)
[2025-05-28 20:29] LABS: C REACTIVE PROTEIN QUANTITATIV 3.16 MG/DL (<1.0)
[2025-05-28 20:30] LABS: ACETONE/KETONE 1.01 MMOL/L (0.02-0.27)
[2025-05-28 20:32] LABS: ALT/SGPT 11 U/L (7.0-40); AST/SGOT 28 U/L (<34); CALCIUM LEVEL 10.3 MG/DL (8.3-10.6); CARBON DIOXIDE LEVEL 20 MMOL/L (20-31); CHLORIDE LEVEL 103 MMOL/L (98-107); CREATININE FOR GFR 0.59 MG/DL (0.55-1.30); GLOMERULAR FILTRATION RATE > 90.0 (>45); POTASSIUM SERUM 5.5 MMOL/L (3.5-5.1); SODIUM LEVEL 134 MMOL/L (136-145)
[2025-05-28] MEDS: NS (Normal Saline) 0.9% 1,000 ML IV ONE (20:43)
[2025-05-28] MEDS: ACETAMINOPHEN *IV* 1,000 MG in IV 1 EA IV ONE (20:50)
[2025-05-28] MEDS ORDERED: ISOVUE-370 76% 100 ML VIAL As Ordered ONE (21:29)
[2025-05-28] MEDS: cefTRIAXone SOD 1 GM in DEXTROSE 5% (D5W) ADV/MINI-BAG 50 ML IV ONE (22:36)
[2025-05-28] MEDS ORDERED: HEPARIN SOD 5000 UNITS/ML 1 ML VIAL/SYRINGE IV PRN (23:55)
[2025-05-29 00:46] LABS: PLATELET COUNT, AUTOMATED 271 10^3/uL (150-450)
[2025-05-29] MEDS: HEPARIN DRIP 25,000 UNITS in IV 1 EA IV SCH (01:11)
[2025-05-29 02:26] VITALS: BP 139/70; TEMP 98.3; O2SAT 96
== END 2025-05-29 02:35 | disposition short-term general hospital (02) ==
LOC: M ED 18:02
DX: I99.8 Other disorder of circulatory system (principal); I74.3 Embolism and thrombosis of arteries of the lower extremities; N39.0 Urinary tract infection, site not specified; E11.65 Type 2 diabetes mellitus with hyperglycemia; K76.0 Fatty (change of) liver, not elsewhere classified; I45.81 Long QT syndrome; K44.9 Diaphragmatic hernia without obstruction or gangrene; I25.2 Old myocardial infarction; M79.7 Fibromyalgia; J44.9 Chronic obstructive pulmonary disease, unspecified; I10 Essential (primary) hypertension; Z96.653 Presence of artificial knee joint, bilateral; Z88.0 Allergy status to penicillin; Z88.5 Allergy status to narcotic agent; Z88.8 Allergy status to other drugs, medicaments and biological substances
CPT/HCPCS: 73630; 75635; 80053; 81001; 82010; 82803; 83036; 83605; 83690; 83930; 85025; 85027; 85652; 85730; 86140; 87040; 87088; 87186; 93005; 93971; 96365; 96366; 96375; 99284; J0131; J0696; Q9967

== ENCOUNTER 2025-06-22 07:35 | Emergency (ER) | payer MEDICAID, OTHER, SELFPAY ==
[~2025-06-22] VITALS: Ht 157.5 cm; Wt 75.2 kg
[2025-06-22 10:21] LABS: BASO # 0.1 10^3/uL (0.0-0.2); BASO % 1.0 % (0.0-1.0); EOS # 0.1 10^3/uL (0.0-0.5); EOS % 1.0 % (0.0-3.0); LYMPH # 2.4 10^3/uL (1.5-5.0); LYMPH % 25.6 % (24.0-44.0); MONO # 0.7 10^3/uL (0.0-0.8); MONO % 7.0 % (2.0-8.0); NEUTROPHILS # 6.1 10^3/uL (1.5-8.5); NEUTROPHILS % 64.7 % (36.0-66.0); PLATELET COUNT, AUTOMATED 388 10^3/uL (150-450)
[2025-06-22] MEDS: GABAPENTIN 400 MG CAP PO ONE (10:43)
[2025-06-22] MEDS ORDERED: GABA-1635 PO (10:57)
[2025-06-22 11:11] VITALS: BP 154/72; TEMP 97.6; O2SAT 95
[2025-06-22 11:42] LABS: CALCIUM LEVEL 8.8 MG/DL (8.3-10.6); CARBON DIOXIDE LEVEL 20.2 MMOL/L (20-31); CHLORIDE LEVEL 105 MMOL/L (98-107); CREATININE FOR GFR 0.62 MG/DL (0.55-1.30); GLOMERULAR FILTRATION RATE > 90.0 (>45); POTASSIUM SERUM 4.2 MMOL/L (3.5-5.1); SODIUM LEVEL 138 MMOL/L (136-145)
== END 2025-06-22 11:22 | disposition home or self-care (01) ==
LOC: M ED 07:35 → EDBD 07:35 → M ED 11:22
DX: G54.6 Phantom limb syndrome with pain (principal); E11.9 Type 2 diabetes mellitus without complications; I10 Essential (primary) hypertension; K21.9 Gastro-esophageal reflux disease without esophagitis; F17.200 Nicotine dependence, unspecified, uncomplicated; F41.9 Anxiety disorder, unspecified; F32.A Depression, unspecified; Z90.49 Acquired absence of other specified parts of digestive tract; Z88.0 Allergy status to penicillin; Z88.5 Allergy status to narcotic agent; Z88.8 Allergy status to other drugs, medicaments and biological substances; Z87.442 Personal history of urinary calculi; Z79.52 Long term (current) use of systemic steroids; Z79.82 Long term (current) use of aspirin; Z79.02 Long term (current) use of antithrombotics/antiplatelets; Z79.4 Long term (current) use of insulin; Z79.899 Other long term (current) drug therapy

== ENCOUNTER 2025-06-28 10:24 | Emergency (ER) | payer OTHER ==
[~2025-06-28] VITALS: Ht 157.5 cm; Wt 73.8 kg
[~2025-06-28 10:24] MED LIST changes: +GABA-1635 PO; -NITR0.4S14; +NITR0.4S14 PO
[2025-06-28 10:35] VITALS: TEMP 98
[2025-06-28 10:59] LABS: BASO # 0.1 10^3/uL (0.0-0.2); BASO % 0.6 % (0.0-1.0); EOS # 0.1 10^3/uL (0.0-0.5); EOS % 1.0 % (0.0-3.0); LYMPH # 2.3 10^3/uL (1.5-5.0); LYMPH % 22.5 % (24.0-44.0); MONO # 0.7 10^3/uL (0.0-0.8); MONO % 6.3 % (2.0-8.0); NEUTROPHILS # 7.1 10^3/uL (1.5-8.5); NEUTROPHILS % 68.9 % (36.0-66.0); PLATELET COUNT, AUTOMATED 400 10^3/uL (150-450)
[2025-06-28 11:13] LABS: INR 0.9
[2025-06-28 11:27] LABS: CK-MB VALUE MASS 1.8 NG/ML (<3.6)
[2025-06-28 11:29] LABS: ALT/SGPT < 9 U/L (7.0-40); AST/SGOT 15 U/L (<34)
[2025-06-28 11:32] LABS: CPK CREATINE PHOSPHOKINASE 33 U/L (34-145); MB/CK RELATIVE INDEX 5.45 (< OR =4)
[2025-06-28 13:09] VITALS: O2SAT 97
[2025-06-28 13:15] VITALS: BP 147/103
[2025-06-29] MEDS ORDERED: ALBU8.5H INH (10:17)
[2025-06-29] MEDS ORDERED: ADVA1AER9 INH (10:22)
[2025-06-29] MEDS ORDERED: ONDA-83 PO (10:22)
[2025-06-29] MEDS ORDERED: HYDR-3713 PO (10:22)
== END 2025-06-28 14:06 | disposition home or self-care (01) ==
LOC: M ED 10:24 → EDBD 10:24 → M ED 14:06
DX: R07.9 Chest pain, unspecified (principal); G54.6 Phantom limb syndrome with pain; I49.3 Ventricular premature depolarization; E11.9 Type 2 diabetes mellitus without complications; I10 Essential (primary) hypertension; J44.9 Chronic obstructive pulmonary disease, unspecified; K21.9 Gastro-esophageal reflux disease without esophagitis; F17.200 Nicotine dependence, unspecified, uncomplicated; I25.2 Old myocardial infarction; F32.A Depression, unspecified; F41.9 Anxiety disorder, unspecified; Z86.79 Personal history of other diseases of the circulatory system; Z88.0 Allergy status to penicillin; Z88.5 Allergy status to narcotic agent; Z88.8 Allergy status to other drugs, medicaments and biological substances; Z95.0 Presence of cardiac pacemaker; Z79.52 Long term (current) use of systemic steroids; Z79.4 Long term (current) use of insulin; Z79.1 Long term (current) use of non-steroidal anti-inflammatories (NSAID); Z79.899 Other long term (current) drug therapy

== ENCOUNTER 2025-06-28 19:40 | Observation (INO) | payer OTHER ==
[~2025-06-28] VITALS: Ht 157.5 cm; Wt 75.9 kg
[2025-06-28] MEDS: PERCOCET 5MG/325MG TAB PO ONE (22:28)
[2025-06-28] MEDS: ONDANSETRON 4MG ORAL DISINTEGRATING TAB PO ONE (22:28)
[2025-06-28] MEDS ORDERED: MOM 30 ML SUSPENSION UDC PO PRN (23:50)
[2025-06-29 00:13] LABS: PLATELET COUNT, AUTOMATED 415 10^3/uL (150-450)
[2025-06-29 00:45] LABS: ALT/SGPT 10 U/L (7.0-40); AST/SGOT 23 U/L (<34); CALCIUM LEVEL 9.2 MG/DL (8.3-10.6); CARBON DIOXIDE LEVEL 19 MMOL/L (20-31); CHLORIDE LEVEL 102 MMOL/L (98-107); CREATININE FOR GFR 0.49 MG/DL (0.55-1.30); GLOMERULAR FILTRATION RATE > 90.0 (>45); POTASSIUM SERUM 4.2 MMOL/L (3.5-5.1); SODIUM LEVEL 137 MMOL/L (136-145)
[2025-06-29] MEDS: NS (Normal Saline) 0.9% 1,000 ML IV SCH (02:45)
[2025-06-29] MEDS: ALBUTEROL 90 MCG/ACT 8 GM HFA INHALER INH ONE (02:52)
[2025-06-29] MEDS: ONDANSETRON 4MG 2ML VIAL IV PRN (03:42)
[2025-06-29 07:53] LABS: PLATELET COUNT, AUTOMATED 423 10^3/uL (150-450)
[2025-06-29] MEDS ORDERED: ISOVUE-370 76% 100 ML VIAL As Ordered ONE (08:21)
[2025-06-29 08:31] LABS: ALT/SGPT < 9 U/L (7.0-40); AST/SGOT 12 U/L (<34); CALCIUM LEVEL 8.8 MG/DL (8.3-10.6); CARBON DIOXIDE LEVEL 21 MMOL/L (20-31); CHLORIDE LEVEL 102 MMOL/L (98-107); CREATININE FOR GFR 0.52 MG/DL (0.55-1.30); GLOMERULAR FILTRATION RATE > 90.0 (>45); MAGNESIUM LEVEL 1.6 MG/DL (1.8-2.4); POTASSIUM SERUM 3.7 MMOL/L (3.5-5.1); SODIUM LEVEL 138 MMOL/L (136-145)
[2025-06-29] MEDS: ACETAMINOPHEN 325 MG TAB PO PRN (10:15)
[2025-06-29] MEDS: ENOXAPARIN 40 MG/0.4 ML SYRINGE (J1650 PER 10MG) SC SCH (10:16)
[2025-06-29] MEDS ORDERED: ALBU8.5H INH (10:17)
[2025-06-29] MEDS ORDERED: HYDR-3713 PO (10:22)
[2025-06-29] MEDS ORDERED: ONDA-83 PO (10:22)
[2025-06-29] MEDS ORDERED: ADVA1AER9 INH (10:22)
[2025-06-29] MEDS ORDERED: HOME MED LIST COMPLETE! XX SCH (10:25)
[2025-06-29] MEDS: MAG SULF 1GM/100ML (MAG RUN) 1 GM in IV 1 EA IV SCH (11:21)
[2025-06-29] MEDS ORDERED: PROCHLORPERAZINE 10MG/2ML VIAL IV PRN (11:55)
[2025-06-29] MEDS ORDERED: GI COCKTAIL 50 ML BTL(HYOSCYAMINE/MAALOX/LIDOCAINE VISCOUS)(1:3:1) PO PRN (12:05)
[2025-06-29] MEDS: PANTOPRAZOLE 40MG VIAL IV SCH (12:36)
[2025-06-29] MEDS: ONDANSETRON 4MG 2ML VIAL IV SCH (12:36)
[2025-06-29] MEDS: metroNIDAZOLE 500 MG in IV 1 EA IV SCH (12:37)
[2025-06-29] MEDS ORDERED: NITROGLYCERIN 0.4 MG SUBL TABLET SL PRN (13:15)
[2025-06-29] MEDS ORDERED: ALBUTEROL 90 MCG/ACT 8 GM HFA INHALER INH PRN (13:15)
[2025-06-29] MEDS: ACETAMINOPHEN 500 MG TAB PO SCH (13:21)
[2025-06-29] MEDS: CIPROFLOXACIN 400 MG in IV 1 EA IV SCH (14:37)
[2025-06-29] MEDS: GABAPENTIN 100 MG CAP PO SCH (17:07)
[2025-06-29] MEDS: ADVAIR HFA 115/21 MCG INHALER INH SCH (21:23)
[2025-06-29 21:40] VITALS: BP 129/61; TEMP 98.2; O2SAT 99
[2025-06-29] MEDS: METOPROLOL TART 25 MG TABLET PO SCH (22:01)
[2025-06-29] MEDS: traZODone 50 MG TAB PO SCH (22:01)
[2025-06-30 05:31] VITALS: BP 105/65; TEMP 97.9; O2SAT 98
[2025-06-30 08:02] VITALS: BP 124/67; TEMP 98.8; O2SAT 98
[2025-06-30 08:23] LABS: BASO # 0.0 10^3/uL (0.0-0.2); BASO % 0.3 % (0.0-1.0); EOS # 0.2 10^3/uL (0.0-0.5); EOS % 1.6 % (0.0-3.0); LYMPH # 1.9 10^3/uL (1.5-5.0); LYMPH % 16.3 % (24.0-44.0); MONO # 0.9 10^3/uL (0.0-0.8); MONO % 7.3 % (2.0-8.0); NEUTROPHILS # 8.8 10^3/uL (1.5-8.5); NEUTROPHILS % 73.9 % (36.0-66.0); PLATELET COUNT, AUTOMATED 324 10^3/uL (150-450)
[2025-06-30 08:37] LABS: ALT/SGPT < 9 U/L (7.0-40); AST/SGOT 13 U/L (<34); CALCIUM LEVEL 8.1 MG/DL (8.3-10.6); CARBON DIOXIDE LEVEL 21 MMOL/L (20-31); CHLORIDE LEVEL 109 MMOL/L (98-107); CREATININE FOR GFR 0.59 MG/DL (0.55-1.30); GLOMERULAR FILTRATION RATE > 90.0 (>45); MAGNESIUM LEVEL 1.8 MG/DL (1.8-2.4); POTASSIUM SERUM 3.6 MMOL/L (3.5-5.1); SODIUM LEVEL 142 MMOL/L (136-145)
[2025-06-30] MEDS: ASPIRIN 81 MG ENTERIC TABLET PO SCH (09:48)
[2025-06-30] MEDS: ATORVASTATIN 20 MG TAB PO SCH (09:48)
[2025-06-30 09:49] VITALS: BP 124/67
[2025-06-30] MEDS: LISINOPRIL 2.5 MG TAB PO SCH (09:49)
[2025-06-30 11:33] VITALS: BP 127/70; TEMP 98.8; O2SAT 97
[2025-06-30] MEDS ORDERED: ATOR40TA75 PO (12:00)
[2025-06-30] MEDS ORDERED: PANT40TA29 PO (12:00)
[2025-06-30] MEDS ORDERED: LISI2.5T9 PO (12:00)
[2025-06-30] MEDS ORDERED: GABA-1171 PO (12:00)
[2025-06-30] MEDS ORDERED: TYLE650T38 PO (12:00)
[2025-06-30] MEDS ORDERED: METR-265 PO (12:00)
[2025-06-30] MEDS ORDERED: METO1TAB87 PO (12:00)
[2025-06-30] MEDS ORDERED: ASPI81TAEC PO (12:00)
[2025-06-30] MEDS ORDERED: CIPR-249 PO (12:00)
[2025-06-30] MEDS ORDERED: TRAZ-252 PO (12:00)
[2025-06-30] MEDS ORDERED: DULO1CAP6 PO (12:00)
== END 2025-06-30 16:36 | disposition home or self-care (01) ==
LOC: M ED 19:40 → M ED INP 19:41 → M MSPAV 06-29 21:36
PROVIDERS: ADMIT Student in an Organized Health Care Education/Training Program; ATTEND Internal Medicine
DX: R11.2 Nausea with vomiting, unspecified (principal); F11.23 Opioid dependence with withdrawal; E83.42 Hypomagnesemia; I25.10 Atherosclerotic heart disease of native coronary artery without angina pectoris; Z98.61 Coronary angioplasty status; I10 Essential (primary) hypertension; I73.9 Peripheral vascular disease, unspecified; E11.9 Type 2 diabetes mellitus without complications; J44.9 Chronic obstructive pulmonary disease, unspecified; M79.7 Fibromyalgia; F41.9 Anxiety disorder, unspecified; F32.A Depression, unspecified; K21.9 Gastro-esophageal reflux disease without esophagitis; Z89.612 Acquired absence of left leg above knee; Z79.82 Long term (current) use of aspirin; Z79.2 Long term (current) use of antibiotics; Z79.84 Long term (current) use of oral hypoglycemic drugs; Z79.899 Other long term (current) drug therapy
CPT/HCPCS: 36415; 71045; 74177; 80047; 80053; 80076; 82550; 82553; 83690; 83735; 84484; 85025; 85027; 85610; 87486; 87581; 87633; 87798; 93005; 93041; 94640; 94760; 96361; 96365; 96366; 96367; 96372; 96375; 96376; 99285; J0744; J1650; J1836; J2405; J2470; J3475; Q9967

== ENCOUNTER → 2025-07-05 | Outpatient (REF) | payer OTHER ==
[~2025-07-05] MED LIST changes: +ADVA1AER9 INH; +ALBU8.5H INH; +ASPI81TAEC PO; +ATOR40TA75 PO; +CIPR-249 PO; +DULO1CAP6 PO; +GABA-1171 PO; +METO1TAB87 PO; +METR-265 PO; +ONDA-83 PO; +PANT40TA29 PO; +TRAZ-252 PO; +TYLE650T38 PO
[2025-07-05 17:13] LABS: ESTIMATED AVERAGE GLUCOSE 275.0 MG/DL (60-110)
[2025-07-05 17:16] LABS: ALT/SGPT 10 U/L (7.0-40); AST/SGOT 10 U/L (<34); CALCIUM LEVEL 8.6 MG/DL (8.3-10.6); CARBON DIOXIDE LEVEL 19 MMOL/L (20-31); CHLORIDE LEVEL 110 MMOL/L (98-107); CHOLESTEROL LEVEL 149 MG/DL (<200); CHOLESTEROL RISK RATIO 3.87 (<5); CREATININE FOR GFR 0.63 MG/DL (0.55-1.30); GLOMERULAR FILTRATION RATE > 90.0 (>45); LDL CHOLESTEROL 41.3 MG/DL (<100); MAGNESIUM LEVEL 1.6 MG/DL (1.8-2.4); NON-HDL-C 110.5 MG/DL; POTASSIUM SERUM 4.3 MMOL/L (3.5-5.1); SODIUM LEVEL 141 MMOL/L (136-145); TRIGLYCERIDES LEVEL 346 MG/DL (<150)
== END ==
LOC: M LAB REF 16:14
PROVIDERS: ATTEND Student in an Organized Health Care Education/Training Program
DX: E66.9 Obesity, unspecified (principal); Z68.43 Body mass index [BMI] 50.0-59.9, adult

== ENCOUNTER 2025-08-01 18:31 | Observation (INO) | payer OTHER ==
[~2025-08-01] VITALS: Ht 157.5 cm; Wt 73.2 kg
[2025-08-01 18:48] LABS: VENOUS BASE EXCESS 0.3 (-2.0-2.0); VENOUS HCO3 20.2 MMOL/L (23.0-27.0); VENOUS O2 SATURATION 99.0 % (60.0-80.0); VENOUS PARTIAL PRESSURE CO2 22.9 mmHg (38.0-50.0); VENOUS PARTIAL PRESSURE O2 124.7 mmHg (30.0-50.0); VENOUS PH 7.564 UNITS (7.330-7.430); VENOUS STANDARD HCO3 24.8 MMOL/L; VENOUS TOTAL CO2 20.9 MMOL/L (24.0-28.0)
[2025-08-01 18:52] LABS: BASO # 0.0 10^3/uL (0.0-0.2); BASO % 0.3 % (0.0-1.0); EOS # 0.0 10^3/uL (0.0-0.5); EOS % 0.0 % (0.0-3.0); LYMPH # 1.2 10^3/uL (1.5-5.0); LYMPH % 8.7 % (24.0-44.0); MONO # 0.4 10^3/uL (0.0-0.8); MONO % 3.1 % (2.0-8.0); NEUTROPHILS # 12.0 10^3/uL (1.5-8.5); NEUTROPHILS % 87.2 % (36.0-66.0); PLATELET COUNT, AUTOMATED 401 10^3/uL (150-450)
[2025-08-01 19:16] LABS: INR 0.88
[2025-08-01 19:19] LABS: ACETONE/KETONE 1.55 MMOL/L (0.02-0.27)
[2025-08-01 19:23] LABS: CPK CREATINE PHOSPHOKINASE 63.0 U/L (34-145)
[2025-08-01 19:40] LABS: OSMOLALITY SERUM 306.0 MOSM/KG (280-301)
[2025-08-01 19:44] LABS: CK-MB VALUE MASS 1.8 NG/ML (<3.6); FREE T4 1.27 NG/DL (0.89-1.76); MAGNESIUM LEVEL 1.7 MG/DL (1.8-2.4); MB/CK RELATIVE INDEX 2.85 (< OR =4); PHOSPHORUS LEVEL 3.3 MG/DL (2.4-5.1)
[2025-08-01] MEDS: NS (Normal Saline) 0.9% 1,000 ML IV ONE ×2 (19:45→23:36)
[2025-08-01] MEDS: ONDANSETRON 4MG/2ML VIAL IV ONE (19:45)
[2025-08-01] MEDS: MORPHINE 4 MG/ML 1 ML VIAL IV PRN (19:50)
[2025-08-01 19:52] LABS: ALT/SGPT 11 U/L (7.0-40); AST/SGOT 13 U/L (<34); CALCIUM LEVEL 9.9 MG/DL (8.3-10.6); CARBON DIOXIDE LEVEL 21 MMOL/L (20-31); CHLORIDE LEVEL 97 MMOL/L (98-107); CREATININE FOR GFR 0.57 MG/DL (0.55-1.30); GLOMERULAR FILTRATION RATE > 90.0 (>45); POTASSIUM SERUM 3.9 MMOL/L (3.5-5.1); SODIUM LEVEL 136 MMOL/L (136-145)
[2025-08-01] MEDS ORDERED: ISOVUE-370 76% 100 ML VIAL As Ordered ONE (20:28)
[2025-08-01 20:40] LABS: CK-MB VALUE MASS 1.9 NG/ML (<3.6)
[2025-08-01 20:42] LABS: CPK CREATINE PHOSPHOKINASE 29.0 U/L (34-145); MB/CK RELATIVE INDEX 6.55 (< OR =4)
[2025-08-01] MEDS: MAG SULF 1GM/100ML (MAG RUN) 1 GM in IV 1 EA IV ONE (21:05)
[2025-08-01 22:11] LABS: KETONE, URINE AUTO RFX 1+ mg/dL (NEGATIVE); LEUKOCYTE ESTERASE UR AUTO RFX NEGATIVE (NEGATIVE); NITRITE, URINE AUTO RFX NEGATIVE (NEGATIVE); RBC, URINE AUTO RFX 3 /HPF (0-3); SQUAM EPITHELIAL CELL UR AURFX 0 /HPF (0-6); WBC, URINE AUTO RFX 1 /HPF (0-3)
[2025-08-01] MEDS: PANTOPRAZOLE 40MG VIAL IV ONE (23:38)
[2025-08-01] MEDS: FAMOTIDINE IV BAG 20 MG in IV 1 EA IV ONE (23:42)
[2025-08-01] MEDS: SUCRALFATE 1 GM TAB PO ONE (23:43)
[2025-08-02 00:20] LABS: CK-MB VALUE MASS 2.3 NG/ML (<3.6)
[2025-08-02 00:22] LABS: CPK CREATINE PHOSPHOKINASE 35.0 U/L (34-145); MB/CK RELATIVE INDEX 6.57 (< OR =4)
[2025-08-02] MEDS ORDERED: DEXTROSE 50% 50 ML SYRINGE IV PRN ×2 (03:15→06:45)
[2025-08-02] MEDS ORDERED: GLUCOSE 4 GM CHEW PO PRN (03:15)
[2025-08-02] MEDS ORDERED: GLUCAGON INJ 1 MG VIAL SC PRN (03:15)
[2025-08-02] MEDS ORDERED: IPRATROPIUM 0.5 MG/ALBUTEROL 2.5 MG INH SOL UD 3 ML NEB PRN (03:15)
[2025-08-02] MEDS: NS (Normal Saline) 0.9% 1,000 ML IV SCH (03:57)
[2025-08-02] MEDS ORDERED: QUET300T2 PO (04:10)
[2025-08-02] MEDS ORDERED: ASPI81TA26 PO (04:10)
[2025-08-02] MEDS ORDERED: ATOR40TA75 PO (04:10)
[2025-08-02] MEDS ORDERED: MAGN500T2 PO (04:10)
[2025-08-02] MEDS ORDERED: ACET-683 PO (04:10)
[2025-08-02] MEDS ORDERED: DULO1CAP6 PO (04:17)
[2025-08-02] MEDS ORDERED: TRAZ-186 PO (04:38)
[2025-08-02] MEDS ORDERED: METO25TA4 PO (04:38)
[2025-08-02] MEDS ORDERED: LISI2.5T8 PO (04:38)
[2025-08-02] MEDS ORDERED: insulin INJ (04:38)
[2025-08-02] MEDS ORDERED: HOME MED LIST COMPLETE! XX SCH (04:40)
[2025-08-02] MEDS ORDERED: INSU100I59 SQ (05:48)
[2025-08-02] MEDS: INSULIN LISPRO (NovoLOG) PER UNIT SC SCH (06:05)
[2025-08-02 07:50] LABS: ESTRADIOL 22.8 PG/ML
[2025-08-02 07:51] LABS: CORTISOL AM 15.7 UG/DL (4.3-22.4)
[2025-08-02] MEDS: PANTOPRAZOLE 40MG VIAL IV SCH (09:30)
[2025-08-02 09:44] VITALS: BP 125/70; TEMP 98.5; O2SAT 98
[2025-08-02] MEDS: ONDANSETRON 4MG/2ML VIAL IV ONE (11:37)
[2025-08-02 12:00] VITALS: BP 133/75; TEMP 98.7; O2SAT 97
[2025-08-02] MEDS: ONDANSETRON 4MG/2ML VIAL IV PRN (15:53)
[2025-08-02] MEDS: MORPHINE 2 MG/ML 1 ML VIAL IV PRN (15:54)
[2025-08-02] MEDS: PNEUMOC 21-VAL CONJ-DIP CRM/PF 0.5 ML SYRINGE IM.IMMUN ONE (16:10)
[2025-08-02 19:58] VITALS: BP 122/61; TEMP 99; O2SAT 96
[2025-08-02] MEDS: ACETAMINOPHEN 325 MG TAB PO PRN (23:37)
[2025-08-02] MEDS: traZODone 50 MG TAB PO PRN (23:37)
[2025-08-03 04:09] VITALS: BP 149/76; TEMP 98.2; O2SAT 96
[2025-08-03 06:11] LABS: PLATELET COUNT, AUTOMATED 303 10^3/uL (150-450)
[2025-08-03 06:26] LABS: ALT/SGPT < 9 U/L (7.0-40); AST/SGOT 12 U/L (<34); CALCIUM LEVEL 8.4 MG/DL (8.3-10.6); CARBON DIOXIDE LEVEL 23 MMOL/L (20-31); CHLORIDE LEVEL 105 MMOL/L (98-107); CREATININE FOR GFR 0.59 MG/DL (0.55-1.30); GLOMERULAR FILTRATION RATE > 90.0 (>45); MAGNESIUM LEVEL 1.6 MG/DL (1.8-2.4); POTASSIUM SERUM 3.6 MMOL/L (3.5-5.1); SODIUM LEVEL 137 MMOL/L (136-145)
[2025-08-03 12:00] VITALS: BP 132/73; TEMP 97.8; O2SAT 97
[2025-08-03] MEDS ORDERED: ACET650T3 PO (16:05)
[2025-08-03 20:00] VITALS: BP 139/77; TEMP 98.9; O2SAT 93
[2025-08-03] MEDS: MAG SULF 1GM/100ML (MAG RUN) 1 GM in IV 1 EA IV SCH (20:06)
[2025-08-04 04:00] VITALS: BP 119/62; TEMP 98.3; O2SAT 97
[2025-08-04] MEDS: ENOXAPARIN 40 MG/0.4 ML SYRINGE (J1650 PER 10MG) SC SCH (09:12)
[2025-08-04] MEDS: MOM 30 ML SUSPENSION UDC PO PRN (10:42)
[2025-08-04 12:04] VITALS: BP 144/87; TEMP 97.6; O2SAT 97
== END 2025-08-04 13:18 | disposition home or self-care (01) ==
LOC: EDBD 18:31 → M ED 18:31 → M ED INP 18:32 → UNDOADMOB 18:32 → M ED INP 18:33 → M MS4PR 08-02 08:30 → M PM&R 08-02 16:08 → M MS4PR 08-02 16:16
PROVIDERS: ADMIT Internal Medicine; ATTEND Student in an Organized Health Care Education/Training Program
DX: R11.2 Nausea with vomiting, unspecified (principal); R10.9 Unspecified abdominal pain; I10 Essential (primary) hypertension; I25.10 Atherosclerotic heart disease of native coronary artery without angina pectoris; Z98.61 Coronary angioplasty status; I25.2 Old myocardial infarction; E11.9 Type 2 diabetes mellitus without complications; J44.9 Chronic obstructive pulmonary disease, unspecified; K21.9 Gastro-esophageal reflux disease without esophagitis; F32.A Depression, unspecified; M79.7 Fibromyalgia; Z89.612 Acquired absence of left leg above knee; Z79.82 Long term (current) use of aspirin; Z79.2 Long term (current) use of antibiotics; Z79.84 Long term (current) use of oral hypoglycemic drugs; Z79.899 Other long term (current) drug therapy; Z88.0 Allergy status to penicillin; Z88.5 Allergy status to narcotic agent
CPT/HCPCS: 36415; 71045; 71275; 74176; 74177; 78264; 80047; 80048; 80053; 80076; 81001; 82010; 82024; 82088; 82384; 82533; 82550; 82553; 82626; 82670; 82803; 83498; 83605; 83690; 83735; 83835; 83930; 84100; 84145; 84244; 84402; 84403; 84439; 84443; 84484; 85025; 85027; 85610; 85730; 87486; 87581; 87633; 87798; 90684; 93005; 93041; 94760; 96361; 96365; 96372; 96375; 96376; 99285; A9541; G0009; J1308; J1650; J1815; J2405; J2470; J2765; J3475; Q9967

== ENCOUNTER 2025-08-26 00:59 | Inpatient (IN) | payer OTHER ==
[~2025-08-26] VITALS: Ht 157.5 cm; Wt 78.1 kg
[~2025-08-26 00:59] MED LIST changes: +ACET-683 PO; +ACET650T3 PO; +INSU100I59 SQ; +LISI2.5T8 PO; +MAGN500T2 PO; +METO25TA4 PO; +OMEP-173 PO; +PROT1TAB2 PO; +QUET300T2 PO; +RISATAB3 PO; +TRAZ-186 PO; +insulin INJ
[2025-08-26 01:31] LABS: VENOUS BASE EXCESS -3.0 (-2.0-2.0); VENOUS HCO3 19.7 MMOL/L (23.0-27.0); VENOUS O2 SATURATION 97.0 % (60.0-80.0); VENOUS PARTIAL PRESSURE CO2 28.7 mmHg (38.0-50.0); VENOUS PARTIAL PRESSURE O2 85.4 mmHg (30.0-50.0); VENOUS PH 7.454 UNITS (7.330-7.430); VENOUS STANDARD HCO3 22.0 MMOL/L; VENOUS TOTAL CO2 20.6 MMOL/L (24.0-28.0)
[2025-08-26 01:35] LABS: BASO # 0.1 10^3/uL (0.0-0.2); BASO % 0.5 % (0.0-1.0); EOS # 0.1 10^3/uL (0.0-0.5); EOS % 0.5 % (0.0-3.0); LYMPH # 2.8 10^3/uL (1.5-5.0); LYMPH % 21.2 % (24.0-44.0); MONO # 0.8 10^3/uL (0.0-0.8); MONO % 6.0 % (2.0-8.0); NEUTROPHILS # 9.2 10^3/uL (1.5-8.5); NEUTROPHILS % 71.1 % (36.0-66.0); PLATELET COUNT, AUTOMATED 414 10^3/uL (150-450)
[2025-08-26] MEDS: PANTOPRAZOLE 40MG VIAL IV ONE (01:40)
[2025-08-26] MEDS: MORPHINE 2 MG/ML 1 ML VIAL IV PRN (01:41)
[2025-08-26] MEDS: ONDANSETRON 4MG/2ML VIAL IV ONE (01:41)
[2025-08-26 02:01] LABS: ALT/SGPT < 9 U/L (7.0-40); AST/SGOT 9 U/L (<34); CALCIUM LEVEL 8.7 MG/DL (8.3-10.6); CARBON DIOXIDE LEVEL 20 MMOL/L (20-31); CHLORIDE LEVEL 109 MMOL/L (98-107); CK-MB VALUE MASS 1.0 NG/ML (<3.6); CPK CREATINE PHOSPHOKINASE 35 U/L (34-145); CREATININE FOR GFR 0.53 MG/DL (0.55-1.30); GLOMERULAR FILTRATION RATE > 90.0 (>45); MB/CK RELATIVE INDEX 2.85 (< OR =4); POTASSIUM SERUM 3.3 MMOL/L (3.5-5.1); SODIUM LEVEL 140 MMOL/L (136-145)
[2025-08-26 02:03] LABS: FREE T4 1.19 NG/DL (0.89-1.76)
[2025-08-26 03:06] LABS: CK-MB VALUE MASS 1.0 NG/ML (<3.6)
[2025-08-26 03:07] LABS: CPK CREATINE PHOSPHOKINASE 36.0 U/L (34-145); MB/CK RELATIVE INDEX 2.77 (< OR =4)
[2025-08-26] MEDS: KETOROLAC 30 MG/ML 1 ML VIAL IV ONE (04:43)
[2025-08-26] MEDS: POTASSIUM CHLORIDE 10% LIQ 20MEQ/15ML UDC PO ONE (04:43)
[2025-08-26] MEDS: FUROSEMIDE 20 MG/2 ML VIAL IV ONE ×2 (07:34→17:00)
[2025-08-26] MEDS: LEVALBUTEROL 1.25 MG 0.5ML CONCENTRATE NEB NEB ONE (07:41)
[2025-08-26] MEDS ORDERED: ISOVUE-370 76% 100 ML VIAL As Ordered ONE (07:57)
[2025-08-26] MEDS ORDERED: PANT40TA29 PO (09:40)
[2025-08-26] MEDS ORDERED: RISATAB3 PO (09:40)
[2025-08-26] MEDS ORDERED: LANTINJ4 SC (09:41)
[2025-08-26] MEDS ORDERED: HOME MED LIST COMPLETE! XX SCH (09:45)
[2025-08-26] MEDS ORDERED: GLUCAGON INJ 1 MG VIAL SC PRN (16:30)
[2025-08-26] MEDS ORDERED: ONDANSETRON 4MG TAB PO PRN (16:30)
[2025-08-26] MEDS ORDERED: DEXTROSE 50% 50 ML SYRINGE IV PRN (16:30)
[2025-08-26] MEDS ORDERED: GLUCOSE 4 GM CHEW PO PRN (16:30)
[2025-08-26] MEDS ORDERED: METOCLOPRAMIDE 5 MG TAB PO PRN (16:45)
[2025-08-26] MEDS: POTASSIUM CHLORIDE 10MEQ SR TABLET PO SCH (17:00)
[2025-08-26] MEDS: INSULIN LISPRO (NovoLOG) PER UNIT SC SCH ×2 (18:15→21:00)
[2025-08-26 22:15] VITALS: BP 159/79; TEMP 97.4; O2SAT 95
[2025-08-26] MEDS: ASPIRIN 81 MG ENTERIC TABLET PO SCH (22:26)
[2025-08-26] MEDS: METOPROLOL TART 25 MG TABLET PO SCH (22:26)
[2025-08-26] MEDS: LISINOPRIL 2.5 MG TAB PO SCH (22:26)
[2025-08-26] MEDS: traZODone 50 MG TAB PO SCH (22:27)
[2025-08-26] MEDS: GABAPENTIN 300 MG CAP PO SCH (22:27)
[2025-08-26] MEDS: PANTOPRAZOLE 40MG TAB PO SCH (22:27)
[2025-08-26] MEDS: ATORVASTATIN 20 MG TAB PO SCH (22:28)
[2025-08-26] MEDS: ACETAMINOPHEN 650 MG ER TAB PO PRN (22:38)
[2025-08-27] VITALS (59 sets, daily range): BP systolic 66–125; BP diastolic 38–70; PULSE 75; TEMP 97–98; O2SAT 69–100
[2025-08-27 06:16] LABS: PLATELET COUNT, AUTOMATED 367 10^3/uL (150-450)
[2025-08-27 06:44] LABS: CALCIUM LEVEL 8.8 MG/DL (8.3-10.6); CARBON DIOXIDE LEVEL 24 MMOL/L (20-31); CHLORIDE LEVEL 108 MMOL/L (98-107); CREATININE FOR GFR 0.69 MG/DL (0.55-1.30); GLOMERULAR FILTRATION RATE > 90.0 (>45); MAGNESIUM LEVEL 1.8 MG/DL (1.8-2.4); POTASSIUM SERUM 4.1 MMOL/L (3.5-5.1); SODIUM LEVEL 140 MMOL/L (136-145)
[2025-08-27] MEDS: MAG SULF 1GM/100ML (MAG RUN) 1 GM in IV 1 EA IV SCH (09:43)
[2025-08-27] MEDS: ENOXAPARIN 40 MG/0.4 ML SYRINGE (J1650 PER 10MG) SC SCH (10:15)
[2025-08-27] MEDS: POTASSIUM CHLORIDE 10MEQ SR TABLET PO SCH (10:18)
[2025-08-27] MEDS: FUROSEMIDE 40 MG/4 ML VIAL IV SCH (10:19)
[2025-08-27] MEDS: NITROGLYCERIN 0.4 MG SUBL TABLET SL PRN (11:23)
[2025-08-27] MEDS: ALBUTEROL 90 MCG/ACT 8 GM HFA INHALER INH PRN (11:28)
[2025-08-27] MEDS: NS (Normal Saline) 0.9% 1,000 ML IV SCH (12:31)
[2025-08-27] MEDS ORDERED: FUROSEMIDE 20 MG/2 ML VIAL IV ONE (13:00)
[2025-08-27] MEDS: DICLOFENAC EPOLAMINE 1.3% PATCH TOP SCH (13:03)
[2025-08-27] MEDS ORDERED: HEPARIN SOD 5000 UNITS/ML 1 ML VIAL/SYRINGE IV PRN (16:10)
[2025-08-27] MEDS: HEPARIN DRIP 25,000 UNITS in IV 1 EA IV SCH (17:35)
[2025-08-27] MEDS: ATORVASTATIN 20 MG TAB PO SCH (20:40)
[2025-08-28 04:06] VITALS: BP 118/72; TEMP 97.6; O2SAT 98
[2025-08-28 06:34] LABS: PLATELET COUNT, AUTOMATED 375 10^3/uL (150-450)
[2025-08-28 07:22] LABS: CALCIUM LEVEL 8.7 MG/DL (8.3-10.6); CARBON DIOXIDE LEVEL 23 MMOL/L (20-31); CHLORIDE LEVEL 105 MMOL/L (98-107); CREATININE FOR GFR 0.71 MG/DL (0.55-1.30); GLOMERULAR FILTRATION RATE > 90.0 (>45); MAGNESIUM LEVEL 2.0 MG/DL (1.8-2.4); POTASSIUM SERUM 4.4 MMOL/L (3.5-5.1); SODIUM LEVEL 137 MMOL/L (136-145)
[2025-08-28 07:30] VITALS: BP 103/59; TEMP 97.5; O2SAT 96
[2025-08-28] MEDS: POTASSIUM CHLORIDE 10MEQ SR TABLET PO SCH (09:10)
[2025-08-28 12:00] VITALS: BP 103/59; TEMP 97.3; O2SAT 96
[2025-08-28 16:00] VITALS: BP 109/65; TEMP 97.8; O2SAT 96
[2025-08-28 19:52] VITALS: BP 112/74; TEMP 97.5; O2SAT 97
[2025-08-28 23:22] VITALS: BP 100/60; TEMP 96.6; O2SAT 97
[2025-08-29] VITALS (8 sets, daily range): BP systolic 92–104; BP diastolic 53–72; TEMP 97.1–98.3; O2SAT 94–98
[2025-08-29 06:35] LABS: PLATELET COUNT, AUTOMATED 358 10^3/uL (150-450)
[2025-08-29 07:23] LABS: CALCIUM LEVEL 9.0 MG/DL (8.3-10.6); CARBON DIOXIDE LEVEL 24.0 MMOL/L (20-31); CHLORIDE LEVEL 104.0 MMOL/L (98-107); CREATININE FOR GFR 1.14 MG/DL (0.55-1.30); GLOMERULAR FILTRATION RATE 54.4 (>45); MAGNESIUM LEVEL 1.9 MG/DL (1.8-2.4); POTASSIUM SERUM 4.6 MMOL/L (3.5-5.1); SODIUM LEVEL 136.0 MMOL/L (136-145)
[2025-08-29] MEDS: FUROSEMIDE 20 MG TAB PO SCH (09:00)
[2025-08-29] MEDS: NAPROXEN 250 MG TAB PO PRN (11:18)
[2025-08-30] VITALS (8 sets, daily range): BP systolic 98–112; BP diastolic 55–81; TEMP 96.3–98.3; O2SAT 94–98
[2025-08-30 06:23] LABS: PLATELET COUNT, AUTOMATED 340 10^3/uL (150-450)
[2025-08-30 06:58] LABS: CALCIUM LEVEL 9.3 MG/DL (8.3-10.6); CARBON DIOXIDE LEVEL 27.0 MMOL/L (20-31); CHLORIDE LEVEL 103.0 MMOL/L (98-107); CREATININE FOR GFR 0.92 MG/DL (0.55-1.30); GLOMERULAR FILTRATION RATE 70.4 (>45); MAGNESIUM LEVEL 2.0 MG/DL (1.8-2.4); POTASSIUM SERUM 4.6 MMOL/L (3.5-5.1); SODIUM LEVEL 139.0 MMOL/L (136-145)
[2025-08-30] MEDS ORDERED: FURO20TA2 PO (17:58)
[2025-08-30] MEDS ORDERED: ATOR80TA59 PO (17:58)
[2025-08-31] VITALS (8 sets, daily range): BP systolic 93–135; BP diastolic 52–76; TEMP 96.1–97.5; O2SAT 88–98
[2025-08-31 06:07] LABS: PLATELET COUNT, AUTOMATED 302 10^3/uL (150-450)
[2025-08-31 07:16] LABS: CALCIUM LEVEL 8.9 MG/DL (8.3-10.6); CARBON DIOXIDE LEVEL 24.0 MMOL/L (20-31); CHLORIDE LEVEL 104.0 MMOL/L (98-107); CREATININE FOR GFR 0.98 MG/DL (0.55-1.30); GLOMERULAR FILTRATION RATE 65.3 (>45); MAGNESIUM LEVEL 2.0 MG/DL (1.8-2.4); POTASSIUM SERUM 4.5 MMOL/L (3.5-5.1); SODIUM LEVEL 136.0 MMOL/L (136-145)
[2025-09-01] VITALS (7 sets, daily range): BP systolic 93–121; BP diastolic 53–77; TEMP 97–98; O2SAT 96–100
[2025-09-01 06:00] LABS: PLATELET COUNT, AUTOMATED 313 10^3/uL (150-450)
[2025-09-01 06:19] LABS: CALCIUM LEVEL 9.1 MG/DL (8.3-10.6); CARBON DIOXIDE LEVEL 25.0 MMOL/L (20-31); CHLORIDE LEVEL 101.0 MMOL/L (98-107); CREATININE FOR GFR 0.84 MG/DL (0.55-1.30); GLOMERULAR FILTRATION RATE 78.5 (>45); MAGNESIUM LEVEL 2.0 MG/DL (1.8-2.4); POTASSIUM SERUM 4.1 MMOL/L (3.5-5.1); SODIUM LEVEL 135.0 MMOL/L (136-145)
[2025-09-02 03:21] VITALS: BP 93/51; TEMP 97.6; O2SAT 100
[2025-09-02 06:09] LABS: PLATELET COUNT, AUTOMATED 293 10^3/uL (150-450)
[2025-09-02 06:32] LABS: CALCIUM LEVEL 9.4 MG/DL (8.3-10.6); CARBON DIOXIDE LEVEL 26.0 MMOL/L (20-31); CHLORIDE LEVEL 101.0 MMOL/L (98-107); CREATININE FOR GFR 0.79 MG/DL (0.55-1.30); GLOMERULAR FILTRATION RATE 84.5 (>45); MAGNESIUM LEVEL 1.9 MG/DL (1.8-2.4); POTASSIUM SERUM 4.6 MMOL/L (3.5-5.1); SODIUM LEVEL 135.0 MMOL/L (136-145)
[2025-09-02 07:00] VITALS: BP 101/49; TEMP 97.4; O2SAT 99
== END 2025-09-02 08:32 | disposition short-term general hospital (02) | DRG 194 ==
LOC: M ED 00:59 → EDBD 00:59 → M ED INP 16:25 → M PCU 22:15
PROVIDERS: ADMIT Student in an Organized Health Care Education/Training Program; ATTEND Student in an Organized Health Care Education/Training Program
PROC: B246ZZZ Ultrasonography of Right and Left Heart (ICD-10-PCS; principal; 2025-08-27)
DX: I11.0 Hypertensive heart disease with heart failure (principal); J81.0 Acute pulmonary edema; E11.51 Type 2 diabetes mellitus with diabetic peripheral angiopathy without gangrene; Z89.612 Acquired absence of left leg above knee; I73.9 Peripheral vascular disease, unspecified; I25.2 Old myocardial infarction; E78.5 Hyperlipidemia, unspecified; I20.0 Unstable angina; F17.210 Nicotine dependence, cigarettes, uncomplicated; K21.9 Gastro-esophageal reflux disease without esophagitis; J44.9 Chronic obstructive pulmonary disease, unspecified; Z79.82 Long term (current) use of aspirin; Z79.4 Long term (current) use of insulin; Z79.899 Other long term (current) drug therapy; Z88.0 Allergy status to penicillin; Z88.5 Allergy status to narcotic agent; Z88.8 Allergy status to other drugs, medicaments and biological substances; Z95.5 Presence of coronary angioplasty implant and graft; F41.9 Anxiety disorder, unspecified; I50.23 Acute on chronic systolic (congestive) heart failure

== ENCOUNTER 2025-09-07 16:43 | Inpatient (IN) | payer OTHER ==
[~2025-09-07] VITALS: Ht 157.5 cm; Wt 69.4 kg
[~2025-09-07 16:43] MED LIST changes: +FARX1TAB3 PO; +FURO20TA2 PO; +LANTINJ4 SC; +METO1TAB32 PO; +PERC5TAB12 PO; +PRAS10TA2 PO
[2025-09-07 17:27] LABS: BASO # 0.1 10^3/uL (0.0-0.2); BASO % 0.5 % (0.0-1.0); EOS # 0.0 10^3/uL (0.0-0.5); EOS % 0.3 % (0.0-3.0); LYMPH # 2.6 10^3/uL (1.5-5.0); LYMPH % 23.7 % (24.0-44.0); MONO # 0.9 10^3/uL (0.0-0.8); MONO % 7.7 % (2.0-8.0); NEUTROPHILS # 7.5 10^3/uL (1.5-8.5); NEUTROPHILS % 67.3 % (36.0-66.0); PLATELET COUNT, AUTOMATED 404 10^3/uL (150-450)
[2025-09-07 17:41] LABS: CPK CREATINE PHOSPHOKINASE 30 U/L (34-145)
[2025-09-07 17:51] LABS: INR 1.01
[2025-09-07 18:00] LABS: ALT/SGPT 15 U/L (7.0-40); AST/SGOT 14 U/L (<34); CALCIUM LEVEL 9.7 MG/DL (8.3-10.6); CARBON DIOXIDE LEVEL 22 MMOL/L (20-31); CHLORIDE LEVEL 106 MMOL/L (98-107); CK-MB VALUE MASS < 1.0 NG/ML (<3.6); CREATININE FOR GFR 0.68 MG/DL (0.55-1.30); FREE T4 1.02 NG/DL (0.89-1.76); GLOMERULAR FILTRATION RATE > 90.0 (>45); POTASSIUM SERUM 4.0 MMOL/L (3.5-5.1); SODIUM LEVEL 140 MMOL/L (136-145)
[2025-09-07 18:29] LABS: CPK CREATINE PHOSPHOKINASE 27 U/L (34-145)
[2025-09-07 18:30] LABS: CK-MB VALUE MASS < 1.0 NG/ML (<3.6)
[2025-09-07] MEDS ORDERED: ISOVUE-370 76% 100 ML VIAL As Ordered ONE (19:50)
[2025-09-07 21:26] LABS: C REACTIVE PROTEIN QUANTITATIV < 0.50 MG/DL (<1.0)
[2025-09-07] MEDS: ONDANSETRON 4MG/2ML VIAL IV ONE (22:03)
[2025-09-07] MEDS: LevoFLOXacin IV 750 MG in IV 1 EA IV ONE (22:03)
[2025-09-07] MEDS: PANTOPRAZOLE 40MG VIAL IV ONE (22:03)
[2025-09-07] MEDS: ACETAMINOPHEN *IV* 1,000 MG in IV 1 EA IV ONE (22:06)
[2025-09-07] MEDS ORDERED: HOME MED LIST COMPLETE! XX SCH (23:30)
[2025-09-08 00:09] LABS: KETONE, URINE AUTO RFX NEGATIVE (NEGATIVE); LEUKOCYTE ESTERASE UR AUTO RFX NEGATIVE (NEGATIVE); NITRITE, URINE AUTO RFX NEGATIVE (NEGATIVE); RBC, URINE AUTO RFX 6 /HPF (0-3); SQUAM EPITHELIAL CELL UR AURFX 2 /HPF (0-6); WBC, URINE AUTO RFX 3 /HPF (0-3)
[2025-09-08 00:41] LABS: CK-MB VALUE MASS < 1.0 NG/ML (<3.6)
[2025-09-08 00:45] LABS: CPK CREATINE PHOSPHOKINASE 30 U/L (34-145)
[2025-09-08] MEDS ORDERED: LOPERAMIDE 2 MG CAPLET PO PRN (01:20)
[2025-09-08] MEDS ORDERED: ALBUTEROL 90 MCG/ACT 8 GM HFA INHALER INH PRN (01:20)
[2025-09-08] MEDS ORDERED: ACETAMINOPHEN 325 MG TAB PO PRN (01:20)
[2025-09-08] MEDS ORDERED: MOM 30 ML SUSPENSION UDC PO PRN (01:20)
[2025-09-08] MEDS ORDERED: MAALOX 30 ML SUSP *UDC PO PRN (01:20)
[2025-09-08] MEDS: MAG SULF 1GM/100ML (MAG RUN) 1 GM in IV 1 EA IV ONE (01:51)
[2025-09-08] MEDS: NS (Normal Saline) 0.9% 1,000 ML IV SCH (03:04)
[2025-09-08 07:20] LABS: PLATELET COUNT, AUTOMATED 354 10^3/uL (150-450)
[2025-09-08 08:03] LABS: ALT/SGPT 15.0 U/L (7.0-40); AST/SGOT 16.0 U/L (<34); CALCIUM LEVEL 9.3 MG/DL (8.3-10.6); CARBON DIOXIDE LEVEL 21.0 MMOL/L (20-31); CHLORIDE LEVEL 107.0 MMOL/L (98-107); CREATININE FOR GFR 0.83 MG/DL (0.55-1.30); GLOMERULAR FILTRATION RATE 79.7 (>45); MAGNESIUM LEVEL 2.2 MG/DL (1.8-2.4); POTASSIUM SERUM 4.2 MMOL/L (3.5-5.1); SODIUM LEVEL 140.0 MMOL/L (136-145)
[2025-09-08] MEDS: PANTOPRAZOLE 40MG VIAL IV SCH (08:45)
[2025-09-08] MEDS: GABAPENTIN 300 MG CAP PO SCH (08:46)
[2025-09-08] MEDS: HEPARIN SOD 5000 UNITS/ML 1 ML VIAL/SYRINGE SC SCH (08:46)
[2025-09-08] MEDS: CLOPIDOGREL 75 MG TAB PO SCH (08:47)
[2025-09-08] MEDS: ATORVASTATIN 20 MG TAB PO SCH (08:49)
[2025-09-08] MEDS: DOCUSATE SODIUM 100 MG CAPSULE PO SCH (08:49)
[2025-09-08] MEDS: METOPROLOL SUCC. 25 MG *XL* TAB PO SCH (08:50)
[2025-09-08] MEDS: DAPAGLIFLOZIN PROPANEDIOL 10 MG TABLET PO SCH (08:50)
[2025-09-08] MEDS ORDERED: FUROSEMIDE 20 MG TAB PO SCH (09:00)
[2025-09-08 13:40] VITALS: BP 113/70; TEMP 97.8; O2SAT 98
[2025-09-08] MEDS ORDERED: ONDANSETRON 4MG/2ML VIAL IV PRN (14:10)
[2025-09-08] MEDS ORDERED: GLUCAGON INJ 1 MG VIAL SC PRN (14:20)
[2025-09-08] MEDS ORDERED: DEXTROSE 50% 50 ML SYRINGE IV PRN (14:20)
[2025-09-08] MEDS ORDERED: GLUCOSE 4 GM CHEW PO PRN (14:20)
[2025-09-08] MEDS: PERCOCET 5MG/325MG TAB PO PRN (14:31)
[2025-09-08] MEDS: NICOTINE 21 MG/24 HR 1 EA TRANSDERMAL TD SCH (14:31)
[2025-09-08 16:00] VITALS: BP 140/77; TEMP 98.6; O2SAT 98
[2025-09-08] MEDS: INSULIN LISPRO (NovoLOG) PER UNIT SC SCH ×2 (17:38→20:29)
[2025-09-08 20:44] VITALS: BP 114/67; TEMP 98.1; O2SAT 98
[2025-09-08] MEDS ORDERED: LISINOPRIL 2.5 MG TAB PO SCH (21:00)
[2025-09-08] MEDS: ASPIRIN 81 MG ENTERIC TABLET PO SCH (23:18)
[2025-09-08] MEDS: LevoFLOXacin IV 750 MG in IV 1 EA IV SCH (23:19)
[2025-09-09] MEDS ORDERED: NICOTINE POLACRILEX 2 MG GUM PO SCH
[2025-09-09 04:08] VITALS: BP 112/57; TEMP 98.3; O2SAT 95
[2025-09-09] MEDS ORDERED: ACETAMINOPHEN 325 MG TAB PO PRN (05:30)
[2025-09-09 07:54] LABS: PLATELET COUNT, AUTOMATED 279 10^3/uL (150-450)
[2025-09-09 08:20] LABS: CALCIUM LEVEL 8.5 MG/DL (8.3-10.6); CARBON DIOXIDE LEVEL 23.0 MMOL/L (20-31); CHLORIDE LEVEL 110.0 MMOL/L (98-107); CREATININE FOR GFR 0.83 MG/DL (0.55-1.30); GLOMERULAR FILTRATION RATE 79.7 (>45); PHOSPHORUS LEVEL 4.3 MG/DL (2.4-5.1); POTASSIUM SERUM 4.1 MMOL/L (3.5-5.1); SODIUM LEVEL 140.0 MMOL/L (136-145)
[2025-09-09] MEDS ORDERED: ENTER DRUG NAME HERE (PATIENT'S OWN MED) PO SCH (09:00)
[2025-09-09 09:27] VITALS: BP 130/63
[2025-09-09 12:00] VITALS: BP 110/59; TEMP 98.3; O2SAT 93
[2025-09-09] MEDS ORDERED: NICO21PAT TD (14:33)
[2025-09-09] MEDS ORDERED: FURO20TA2 PO (14:33)
[2025-09-09] MEDS ORDERED: NICO4GUM5 PO (14:33)
[2025-09-09] MEDS ORDERED: QUET300T2 PO (14:33)
[2025-09-09] MEDS ORDERED: LOSA25TA13 PO (14:33)
[2025-09-09] MEDS ORDERED: LEVO1TAB39 PO (14:33)
== END 2025-09-09 15:58 | disposition home or self-care (01) | DRG 249 ==
LOC: M ED 16:43 → EDBD 16:43 → M ED INP 09-08 01:20 → M MSPAV 09-08 13:40
PROVIDERS: ADMIT Student in an Organized Health Care Education/Training Program; ATTEND Student in an Organized Health Care Education/Training Program
DX: K52.9 Noninfective gastroenteritis and colitis, unspecified (principal); I11.0 Hypertensive heart disease with heart failure; E11.51 Type 2 diabetes mellitus with diabetic peripheral angiopathy without gangrene; I50.22 Chronic systolic (congestive) heart failure; Z89.612 Acquired absence of left leg above knee; E78.5 Hyperlipidemia, unspecified; J44.9 Chronic obstructive pulmonary disease, unspecified; K21.9 Gastro-esophageal reflux disease without esophagitis; I25.10 Atherosclerotic heart disease of native coronary artery without angina pectoris; Z95.2 Presence of prosthetic heart valve; F17.200 Nicotine dependence, unspecified, uncomplicated; Z79.4 Long term (current) use of insulin; Z79.82 Long term (current) use of aspirin; Z79.899 Other long term (current) drug therapy; Z88.0 Allergy status to penicillin; Z88.5 Allergy status to narcotic agent; Z88.8 Allergy status to other drugs, medicaments and biological substances; R11.16 Cannabis hyperemesis syndrome